=== PATIENT | male | born 1945 | race Two or more races ===

== ENCOUNTER 2017-04-08 12:07 | Day surgery (SDC) | payer MEDICARE ==
[2017-04-04 13:42] VITALS: BMI 34.0
[~2017-04-08 12:07] MED LIST: LACTATED RINGERS 1,000 ML IV SCH
[2017-04-08 12:31] VITALS: TEMP 97.5
[2017-04-08] MEDS ORDERED: PROPOFOL 10 MG/ML 20 ML VIAL IV ONE (12:46)
[2017-04-08] MEDS ORDERED: LIDOCAINE 1% INJ 10MG/ML (20 ML MDV) ONE (12:46)
--- NOTE | 2017-04-08 13:09 | P.PCN ---
Date of Procedure: 04/08/17 Preoperative Diagnosis: Postoperative Diagnosis: Procedure(s) Performed: Procedure: Total colonoscopy. Preoperative diagnosis: Hemoccult-positive stools. Postoperative diagnosis: Diverticulosis with no evidence of acute diverticulitis , strictures, polyps or cancer. Preparation: HalfLytely prep. Sedation: Was provided by anesthesia. Brief clinical history: The patient is a 71-year-old male who is referred for this evaluation because of finding of Hemoccult positive stools. He had a prior colonoscopy more than 8 years ago in [place]. At this time, he has no abdominal complaints, bleeding or anemia. Procedure: With the patient on his left lateral decubitus position and after informed consent and adequate sedation, the perianal area was inspected and it did not show any fissures or fistulas. There were no masses felt on digital rectal examination. The Olympus CFQ 160L video colonoscope was then inserted in the rectum in the usual fashion and advanced to the cecum. There were multiple diverticular orifices seen scattered in the sigmoid with no evidence of acute diverticulitis or strictures. There was a rare diverticular orifice seen on the right side. No polyps or tumors were seen or any tumors or other potential sources of bleeding. I retroflexed the endoscope in the rectum before the endoscope was withdrawn. The patient tolerated the procedure well. Plan: The patient was reassured. Discussed dietary measures. In the absence of upper GI complaints or anemia I did not recommend upper GI workup for the workup of his Hemoccult positive stools at this time and this can be left as a contingency. He will follow up with you as planned and I will be happy to see in the future if needed. Implants: Indications for Procedure: Operative Findings: Description of Procedure:
[2017-04-08 13:29] VITALS: BP 116/64; PULSE 90; RESP 18
== END 2017-04-08 13:38 | disposition home or self-care (01) ==
LOC: ORWHC2ENDO 12:07
DX: K57.30 Diverticulosis of large intestine without perforation or abscess without bleeding (principal); Z87.19 Personal history of other diseases of the digestive system; Z86.73 Personal history of transient ischemic attack (TIA), and cerebral infarction without residual deficits; I10 Essential (primary) hypertension; E66.9 Obesity, unspecified; Z79.82 Long term (current) use of aspirin; Z79.899 Other long term (current) drug therapy; Z91.09 Other allergy status, other than to drugs and biological substances
CPT/HCPCS: 45378

== ENCOUNTER → 2018-07-09 | Outpatient (CLI) | payer MEDICARE ==
--- NOTE | 2018-07-09 16:45 | MR ---
EXAMINATION TYPE: MR brain wo con DATE OF EXAM: 07/09/2018 COMPARISON: None HISTORY: Other developmental disorders of speech CONTRAST: Performed utilizing 0 mL intravenous Gadavist gadolinium contrast. TECHNIQUE: Multiplanar, multiecho imaging on a 3.0 Jovita magnet is performed through the brain. Stud y is performed within 24 hours of arrival to the hospital. The craniovertebral junction is normal. The pituitary is normal. Diffusion-weighted imaging is performed. No abnormal hyperintensity is present to suggest an acute i ntracranial infarct or acute ischemic change. There is some very mild scattered white matter changes which are nonspecific but likely on the basis of chronic white matter ischemic change. No corresponding abnormality on diffusion is evident. No acu te or subacute infarcts are evident. No old infarcts are identified. Ventricles and sulci are slightly prominent for the patient age. IMPRESSIONS: 1. Age-related atrophy with periventricular white matter ischemic changes.
== END | disposition home or self-care (01) ==
LOC: RADMRIMAIN 10:30
PROVIDERS: ATTEND Internal Medicine
DX: G31.1 Senile degeneration of brain, not elsewhere classified (principal); I67.82 Cerebral ischemia
CPT/HCPCS: 70551

== ENCOUNTER 2019-01-14 10:17 | Inpatient (IN) | payer MEDICARE ==
--- NOTE | 2019-01-14 10:57 | ED ---
General Adult HPI - General Chief complaint: Psychiatric Symptoms Stated complaint: altered mental status Time Seen by Provider: 01/14/19 10:20 Source: patient, RN notes reviewed Mode of arrival: ambulatory Limitations: altered mental status - History of Present Illness Initial comments: This is a 73-year-old male who presents emergency Department complaining of with family. Family states he has been hallucinating over a year but over the last 2 weeks is gotten considerably worse. Family states he has stopped drinking approximately at the same time. According to family he believes people cameras in his house and believes that the son's girlfriend isn't useful person. He also wanted the police today because he was again hallucinating. Patient himself denies any physical complaints. He denies headache he denies any numbness weakness. He denies being lightheaded. Patient denies chest pain difficulty breathing or shortness of breath. Patient denies any palpitations. Patient denies abdominal pain patient denies nausea vomiting diarrhea. Patient is extremely poor historian since she cannot finish thought without starting another one and none of his. Patient is unable to convey a complete answer to any slightly involved questions. - Related Data Home Medications Medication Instructions Recorded Confirmed Aspirin [Adult Low Dose Aspirin EC] 162 mg PO DAILY 04/04/17 01/14/19 Cholecalciferol (Vitamin D3) 2,000 unit PO DAILY 04/04/17 01/14/19 [Vitamin D3] Lisinopril [Zestril] 10 mg PO DAILY 04/04/17 01/14/19 Multivit-Min/FA/Lycopen/Lutein 1 tab PO DAILY 04/04/17 01/14/19 [Centrum Silver Tablet] Zinc 100 mg PO DAILY 04/04/17 01/14/19 Allergies Allergy/AdvReac Type Severity Reaction Status Date / Time animal dander Allergy Unknown Dyspnea Verified 01/14/19 10:44 VITAMIN B-12 INJECTION AdvReac Unknown FELT WEAK Uncoded 01/14/19 10:27 AND FAINT. Review of Systems ROS Statement: Those systems with pertinent positive or pertinent negative responses have been documented in the HPI. ROS Other: All systems not noted in ROS Statement are negative. Past Medical History Past Medical History: Cancer, CVA/TIA, Hypertension, Memory Impairment Additional Past Medical History / Comment(s): HX OF SKIN CANCER, POSSIBLE CVA- NO WEAKNESS, STATES SOME MEMORY PROBLEMS AND DIFFICULTY FINDING THE RIGHT WORDS. HX OF HEMORRHOIDS AND GENITAL AND ANAL WARTS THAT HE HAD PROCEDURE FOR REMOVAL. , FREQUENT BOWEL MOVEMENTS AND DIARRHEA. History of Any Multi-Drug Resistant Organisms: None Reported Past Surgical History: Adenoidectomy, Tonsillectomy Additional Past Surgical History / Comment(s): CIRCUMCISION, COLONOSCOPY AND PROCEDURES FOR REMOVAL OF GENITAL AND ANAL WARTS. 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 - Past Family History Mother Family Medical History: Cancer Father Family Medical History: Cancer Sister(s) Family Medical History: Cancer General Exam - General Exam Comments Initial Comments: GENERAL: Patient is well-developed and well-nourished. Patient is nontoxic and well- hydrated and is in mild distress. ENT: Neck is soft and supple. No significant lymphadenopathy is noted. Oropharynx is clear. Moist mucous membranes. Neck has full range of motion without eliciting any pain. EYES: The sclera were anicteric and conjunctiva were pink and moist. Extraocular movements were intact and pupils were equal round and reactive to light. E yelids were unremarkable. PULMONARY: Unlabored respirations. Good breath sounds bilaterally. No audible rales rhonchi or wheezing was noted. CARDIOVASCULAR: There is a regular rate and rhythm without any murmurs gallops or rubs. ABDOMEN: Soft and nontender with normal bowel sounds. No palpable organomegaly was noted. There is no palpable pulsatile mass. SKIN: Skin is clear with no lesions or rashes and otherwise unremarkable. NEUROLOGIC: Patient is alert and oriented x3. Cranial nerves II through XII are grossly intact. Motor and sensory are also intact. Normal speech, volume and content. Symmetrical smile. MUSCULOSKELETAL: Normal extremities with adequate strength and full range of motion. LYMPHATICS: No significant lymphadenopathy is noted PSYCHIATRIC: Normal psychiatric evaluation. Limitations: altered mental status Course Vital Signs 01/14/19 10:22 Temperature 98.8 F Pulse Rate 102 H Respiratory 20 Rate Blood Pressure 165/81 O2 Sat by Pulse 96 Oximetry Medical Decision Making - Medical Decision Making Computed tomography scan of the brain shows no acute abnormality. Chest x-ray shows no acute normalities. Psych evaluate the patient after I cleared medically. They decided to admit the patient to the psychiatric floor. I filled out a clinical certification - Lab Data Result diagrams: 01/14/19 11:23 01/14/19 11:23 Lab Results 01/14/19 01/14/19 01/14/19 Range/Units 11:00 11:23 11:23 WBC 9.0 (3.8-10.6) k/uL RBC 5.28 (4.30-5.90) m/uL Hgb 15.6 (13.0-17.5) gm/dL Hct 48.2 (39.0-53.0) % MCV 91.4 (80.0-100.0) fL MCH 29.5 (25.0-35.0) pg MCHC 32.3 (31.0-37.0) g/dL RDW 13.0 (11.5-15.5) % Plt Count 216 (150-450) k/uL Neutrophils % 81 % Lymphocytes % 11 % Monocytes % 5 % Eosinophils % 1 % Basophils % 0 % Neutrophils # 7.2 (1.3-7.7) k/uL Lymphocytes # 1.0 (1.0-4.8) k/uL Monocytes # 0.5 (0-1.0) k/uL Eosinophils # 0.1 (0-0.7) k/uL Basophils # 0.0 (0-0.2) k/uL PT (9.0-12.0) sec INR (<1.2) APTT (22.0-30.0) sec Sodium (137-145) mmol/L Potassium (3.5-5.1) mmol/L Chloride (98-107) mmol/L Carbon Dioxide (22-30) mmol/L Anion Gap mmol/L BUN (9-20) mg/dL Creatinine (0.66-1.25) mg/dL Est GFR (CKD-EPI)AfAm (>60 ml/min/1.73 sqM) Est GFR (CKD-EPI)NonAf (>60 ml/min/1.73 sqM) Glucose (74-99) mg/dL Calcium (8.4-10.2) mg/dL Magnesium (1.6-2.3) mg/dL Total Bilirubin (0.2-1.3) mg/dL AST (17-59) U/L ALT (21-72) U/L Alkaline Phosphatase (38-126) U/L Ammonia <9 (<30) umol/L Troponin I (0.000-0.034) ng/mL Total Protein (6.3-8.2) g/dL Albumin (3.5-5.0) g/dL Urine Color Yellow Urine Appearance Clear (Clear) Urine pH 5.5 (5.0-8.0) Ur Specific [place] 1.011 (1.001-1.035) Urine Protein Negative (Negative) Urine Glucose (UA) Negative (Negative) Urine Ketones 1+ H (Negative) Urine Blood Negative (Negative) Urine Nitrite Negative (Negative) Urine Bilirubin Negative (Negative) Urine Urobilinogen <2.0 (<2.0) mg/dL Ur Leukocyte Esterase Negative (Negative) Urine Opiates Screen Not Detected (NotDetected) Ur Oxycodone Screen Not Detected (NotDetected) Urine Methadone Screen Not Detected (NotDetected) Ur Propoxyphene Screen Not Detected (NotDetected) Ur Barbiturates Screen Not Detected (NotDetected) U Tricyclic Antidepress Not Detected (NotDetected) Ur Phencyclidine Scrn Not Detected (NotDetected) Ur Amphetamines Screen Not Detected (NotDetected) U Methamphetamines Scrn Not Detected (NotDetected) U Benzodiazepines Scrn Not Detected (NotDetected) Urine Cocaine Screen Not Detected (NotDetected) U Marijuana (THC) Screen Not Detected (NotDetected) Serum Alcohol mg/dL 01/14/19 01/14/19 01/14/19 Range/Units 11:23 11:23 11:23 WBC (3.8-10.6) k/uL RBC (4.30-5.90) m/uL Hgb (13.0-17.5) gm/dL Hct (39.0-53.0) % MCV (80.0-100.0) fL MCH (25.0-35.0) pg MCHC (31.0-37.0) g/dL RDW (11.5-15.5) % Plt Count (150-450) k/uL Neutrophils % % Lymphocytes % % Monocytes % % Eosinophils % % Basophils % % Neutrophils # (1.3-7.7) k/uL Lymphocytes # (1.0-4.8) k/uL Monocytes # (0-1.0) k/uL Eosinophils # (0-0.7) k/uL Basophils # (0-0.2) k/uL PT 10.5 (9.0-12.0) sec INR 1.0 (<1.2) APTT 22.9 (22.0-30.0) sec Sodium 139 (137-145) mmol/L Potassium 4.4 (3.5-5.1) mmol/L Chloride 107 (98-107) mmol/L Carbon Dioxide 24 (22-30) mmol/L Anion Gap 8 mmol/L BUN 19 (9-20) mg/dL Creatinine 1.33 H (0.66-1.25) mg/dL Est GFR (CKD-EPI)AfAm 61 (>60 ml/min/1.73 sqM) Est GFR (CKD-EPI)NonAf 53 (>60 ml/min/1.73 sqM) Glucose 108 H (74-99) mg/dL Calcium 9.7 (8.4-10.2) mg/dL Magnesium 2.1 (1.6-2.3) mg/dL Total Bilirubin 0.7 (0.2-1.3) mg/dL AST 24 (17-59) U/L ALT 42 (21-72) U/L Alkaline Phosphatase 86 (38-126) U/L Ammonia (<30) umol/L Troponin I <0.012 (0.000-0.034) ng/mL Total Protein 7.0 (6.3-8.2) g/dL Albumin 4.4 (3.5-5.0) g/dL Urine Color Urine Appearance (Clear) Urine pH (5.0-8.0) Ur Specific [place] (1.001-1.035) Urine Protein (Negative) Urine Glucose (UA) (Negative) Urine Ketones (Negative) Urine Blood (Negative) Urine Nitrite (Negative) Urine Bilirubin (Negative) Urine Urobilinogen (<2.0) mg/dL Ur Leukocyte Esterase (Negative) Urine Opiates Screen (NotDetected) Ur Oxycodone Screen (NotDetected) Urine Methadone Screen (NotDetected) Ur Propoxyphene Screen (NotDetected) Ur Barbiturates Screen (NotDetected) U Tricyclic Antidepress (NotDetected) Ur Phencyclidine Scrn (NotDetected) Ur Amphetamines Screen (NotDetected) U Methamphetamines Scrn (NotDetected) U Benzodiazepines Scrn (NotDetected) Urine Cocaine Screen (NotDetected) U Marijuana (THC) Screen (NotDetected) Serum Alcohol <10 mg/dL Disposition Clinical Impression: Acute psychosis Disposition: ADMITTED IP TO THIS HOSP Referrals: Amol Nunez MD [Primary Care Provider] - 1-2 days Time of Disposition: 14:30
[2019-01-14 11:15] LABS: Appearance,Urine Clear (Clear); Bilirubin,Urine Negative (Negative); Blood,Urine Negative (Negative); Color,Urine Yellow; Glucose,Urine (UA) Negative (Negative); Ketones,Urine 1+ (Negative); Leukocyte Esterase,Urine Negative (Negative); Nitrite,Urine Negative (Negative); PH, Urine 5.5 (5.0-8.0); Protein,Urine Negative (Negative); Specific Gravity,Urine 1.011 (1.001-1.035); Urobilinogen,Urine <2.0 mg/dL (<2.0)
[2019-01-14 11:29] LABS: Amphetamine Screen,Urine Not Detected (NotDetected); Barbiturate Screen,Urine Not Detected (NotDetected); Benzodiazepines Screen,Urine Not Detected (NotDetected); Cocaine Screen,Urine Not Detected (NotDetected); Methadone Screen, Urine Not Detected (NotDetected); Opiate Screen,Urine Not Detected (NotDetected); Oxycodone Screen, Urine Not Detected (NotDetected); Phencyclidine Screen,Urine Not Detected (NotDetected); Tricyclic Antidepressant,Urine Not Detected (NotDetected); Urn Cannabinoid Scrn Not Detected (NotDetected)
[2019-01-14 11:42] LABS: Basophils % (A) 0 %; Eosinophils # (A) 0.1 k/uL (0-0.7); Eosinophils % (A) 1 %; HCT 48.2 % (39.0-53.0); HGB 15.6 gm/dL (13.0-17.5); Lymphocytes % (A) 11 %; MCH 29.5 pg (25.0-35.0); MCHC 32.3 g/dL (31.0-37.0); MCV 91.4 fL (80.0-100.0); Mean Platelet Volume 7.6; Monocytes # (A) 0.5 k/uL (0-1.0); Monocytes % (A) 5 %; Neutrophils # (A) 7.2 k/uL (1.3-7.7); Neutrophils % (A) 81 %; Platelet Count 216 k/uL (150-450); RBC 5.28 m/uL (4.30-5.90)
[2019-01-14 11:50] LABS: Partial Thromboplastin Time 22.9 sec (22.0-30.0); Prothrombin Time 10.5 sec (9.0-12.0)
--- NOTE | 2019-01-14 11:52 | CT ---
EXAMINATION TYPE: CT brain wo con DATE OF EXAM: 01/14/2019 HISTORY: Altered mental status CT DLP: 1083.4 mGycm. Automated Exposure Control for Dose Reduction was Utilized. TECHNIQUE: CT scan of the head is performed without contrast. COMPARISON: MRI brain July 09, 2018 FINDINGS: There is no acute intracranial hemorrhage or midline shift identified. There is diffuse v entricular and sulcal prominence consistent with diffuse age-related cerebral atrophy. There is low- attenuation in the periventricular white matter consistent with chronic small vessel ischemic change. The globes are intact and the visualized sinuses are clear. Soft tissue density left external aud itory canal is felt to reflect cerumen. IMPRESSION: No acute intracranial hemorrhage or midline shift. There is mild to moderate diffuse ag e-related cerebral atrophy and mild chronic small vessel ischemic change redemonstrated.
[2019-01-14 11:56] LABS: ALT 42 U/L (21-72); AST 24 U/L (17-59); Albumin 4.4 g/dL (3.5-5.0); Alcohol <10 mg/dL; Alkaline Phosphatase 86 U/L (38-126); Anion Gap 8 mmol/L; Blood Urea Nitrogen 19 mg/dL (9-20); Calcium 9.7 mg/dL (8.4-10.2); Carbon Dioxide 24 mmol/L (22-30); Chloride 107 mmol/L (98-107); Glucose 108 mg/dL (74-99); Magnesium 2.1 mg/dL (1.6-2.3); Potassium 4.4 mmol/L (3.5-5.1); Sodium 139 mmol/L (137-145); Total Bilirubin 0.7 mg/dL (0.2-1.3)
--- NOTE | 2019-01-14 12:29 | XR ---
EXAMINATION TYPE: XR chest 2V DATE OF EXAM: 01/14/2019 COMPARISON: NONE HISTORY: Altered mental status TECHNIQUE: Frontal and lateral views of the chest are obtained. FINDINGS: There is no focal air space opacity, pleural effusion, or pneumothorax seen. The cardiac silhouette size is within normal limits. The osseous structures are intact. Mild multilevel degener ative changes of the thoracic spine. IMPRESSION: No acute cardiopulmonary process.
[2019-01-14] MEDS ORDERED: ACETAMINOPHEN TAB 325 MG TAB PO PRN (14:58)
[2019-01-14] MEDS ORDERED: MAGNESIUM HYDROXIDE 2,400 MG/10 ML CUP PO PRN (14:58)
[2019-01-14] MEDS ORDERED: ZIPRASIDONE 20 MG VIAL IM PRN (14:58)
[2019-01-14] MEDS ORDERED: LORazepam 1 MG TAB PO PRN (14:58)
[2019-01-14] MEDS ORDERED: MAG HYDROX/AL HYDROX/SIMETH 30 ML CUP PO PRN (14:58)
[2019-01-14] MEDS ORDERED: LORazepam 2 MG/ML INJ IM PRN (15:04)
[2019-01-15] MEDS: LISINOPRIL 10 MG TAB PO SCH (08:04)
[2019-01-15] MEDS: CHOLECALCIFEROL 1,000 UNIT TAB PO SCH (08:04)
[2019-01-15] MEDS: MULTIVITAMINS, THERA 1 EACH TAB PO SCH (08:04)
[2019-01-15] MEDS: ZINC SULFATE 220 MG CAP PO SCH (08:04)
[2019-01-15] MEDS: ASPIRIN 81 MG PO SCH (08:04)
[2019-01-15 09:08] LABS: Basophils # (A) 0.1 k/uL (0-0.2); Basophils % (A) 1 %; Eosinophils # (A) 0.2 k/uL (0-0.7); Eosinophils % (A) 2 %; HGB 16.4 gm/dL (13.0-17.5); Lymphocytes % (A) 24 %; MCH 29.9 pg (25.0-35.0); MCHC 32.7 g/dL (31.0-37.0); MCV 91.4 fL (80.0-100.0); Mean Platelet Volume 8.1; Monocytes # (A) 0.5 k/uL (0-1.0); Monocytes % (A) 6 %; Neutrophils # (A) 5.5 k/uL (1.3-7.7); Neutrophils % (A) 65 %; Platelet Count 195 k/uL (150-450); RBC 5.48 m/uL (4.30-5.90); RDW 13.8 % (11.5-15.5); WBC 8.4 k/uL (3.8-10.6)
[2019-01-15 09:14] LABS: Albumin 4.6 g/dL (3.5-5.0); Bilirubin, Delta 0.2 mg/dL (0.0-0.2); Bilirubin,Unconjugated 0.9 mg/dL (0.0-1.1); Total Bilirubin 1.1 mg/dL (0.2-1.3); Total Protein 7.1 g/dL (6.3-8.2)
--- NOTE | 2019-01-15 11:46 | P.HP ---
Psychiatric H&P - . H&P Date: 01/15/19 History & Physical: Allergies Allergy/AdvReac Type Severity Reaction Status Date / Time animal dander Allergy Unknown Dyspnea Verified 01/14/19 10:44 VITAMIN B-12 INJECTION AdvReac Unknown FELT WEAK Uncoded 01/14/19 10:27 AND FAINT. Vital Signs Temp 98.6 F 01/15/19 06:40 Pulse 90 01/15/19 06:40 Resp 18 01/15/19 06:40 BP 148/83 01/15/19 06:40 Pulse Ox 95 01/14/19 18:20 Intake & Output 01/14/19 01/15/19 01/15/19 18:59 06:59 18:59 Weight 97.3 kg Laboratory Last Values WBC 8.4 k/uL (3.8-10.6) 01/15/19 08:22 RBC 5.48 m/uL (4.30-5.90) 01/15/19 08:22 Hgb 16.4 gm/dL (13.0-17.5) 01/15/19 08:22 Hct 50.0 % (39.0-53.0) 01/15/19 08:22 MCV 91.4 fL (80.0-100.0) 01/15/19 08:22 MCH 29.9 pg (25.0-35.0) 01/15/19 08:22 MCHC 32.7 g/dL (31.0-37.0) 01/15/19 08:22 RDW 13.8 % (11.5-15.5) 01/15/19 08:22 Plt Count 195 k/uL (150-450) 01/15/19 08:22 Neutrophils % 65 % 01/15/19 08:22 Lymphocytes % 24 % 01/15/19 08:22 Monocytes % 6 % 01/15/19 08:22 Eosinophils % 2 % 01/15/19 08:22 Basophils % 1 % 01/15/19 08:22 Neutrophils # 5.5 k/uL (1.3-7.7) 01/15/19 08:22 Lymphocytes # 2.0 k/uL (1.0-4.8) 01/15/19 08:22 Monocytes # 0.5 k/uL (0-1.0) 01/15/19 08:22 Eosinophils # 0.2 k/uL (0-0.7) 01/15/19 08:22 Basophils # 0.1 k/uL (0-0.2) 01/15/19 08:22 PT 10.5 sec (9.0-12.0) 01/14/19 11:23 INR 1.0 (<1.2) 01/14/19 11:23 APTT 22.9 sec (22.0-30.0) 01/14/19 11:23 Sodium 139 mmol/L (137-145) 01/14/19 11:23 Potassium 4.4 mmol/L (3.5-5.1) 01/14/19 11:23 Chloride 107 mmol/L (98-107) 01/14/19 11:23 Carbon Dioxide 24 mmol/L (22-30) 01/14/19 11:23 Anion Gap 8 mmol/L 01/14/19 11:23 BUN 19 mg/dL (9-20) 01/14/19 11:23 Creatinine 1.33 mg/dL (0.66-1.25) H 01/14/19 11:23 Est GFR (CKD-EPI)AfAm 61 (>60 ml/min/1.73 sqM) 01/14/19 11:23 Est GFR (CKD-EPI)NonAf 53 (>60 ml/min/1.73 sqM) 01/14/19 11:23 Glucose 108 mg/dL (74-99) H 01/14/19 11:23 Calcium 9.7 mg/dL (8.4-10.2) 01/14/19 11:23 Magnesium 2.1 mg/dL (1.6-2.3) 01/14/19 11:23 Total Bilirubin 1.1 mg/dL (0.2-1.3) 01/15/19 08:22 Conjugated Bilirubin 0.0 mg/dL (0.0-0.3) 01/15/19 08:22 Unconjugated Bilirubin 0.9 mg/dL (0.0-1.1) 01/15/19 08:22 Delta Bilirubin 0.2 mg/dL (0.0-0.2) 01/15/19 08:22 AST 22 U/L (17-59) 01/15/19 08:22 ALT 38 U/L (21-72) 01/15/19 08:22 Alkaline Phosphatase 85 U/L (38-126) 01/15/19 08:22 Ammonia <9 umol/L (<30) 01/14/19 11:23 Troponin I <0.012 ng/mL (0.000-0.034) 01/14/19 11:23 Total Protein 7.1 g/dL (6.3-8.2) 01/15/19 08:22 Albumin 4.6 g/dL (3.5-5.0) 01/15/19 08:22 Triglycerides 105 mg/dL (<150) 01/15/19 08:22 Cholesterol 160 mg/dL (<200) 01/15/19 08:22 LDL Cholesterol, Calc 71 mg/dL (0-99) 01/15/19 08: HDL Cholesterol 68 mg/dL (40-60) H 01/15/19 08:22 TSH 1.240 mIU/L (0.465-4.680) 01/15/19 08:22 Urine Color Yellow 01/14/19 11:00 Urine Appearance Clear (Clear) 01/14/19 11:00 Urine pH 5.5 (5.0-8.0) 01/14/19 11:00 Ur Specific [place] 1.011 (1.001-1.035) 01/14/19 11:00 Urine Protein Negative (Negative) 01/14/19 11:00 Urine Glucose (UA) Negative (Negative) 01/14/19 11:00 Urine Ketones 1+ (Negative) H 01/14/19 11:00 Urine Blood Negative (Negative) 01/14/19 11:00 Urine Nitrite Negative (Negative) 01/14/19 11:00 Urine Bilirubin Negative (Negative) 01/14/19 11:00 Urine Urobilinogen <2.0 mg/dL (<2.0) 01/14/19 11:00 Ur Leukocyte Esterase Negative (Negative) 01/14/19 11:00 Urine Opiates Screen Not Detected (NotDetected) 01/14/19 11:00 Ur Oxycodone Screen Not Detected (NotDetected) 01/14/19 11:00 Urine Methadone Screen Not Detected (NotDetected) 01/14/19 11:00 Ur Propoxyphene Screen Not Detected (NotDetected) 01/14/19 11:00 Ur Barbiturates Screen Not Detected (NotDetected) 01/14/19 11:00 U Tricyclic Antidepress Not Detected (NotDetected) 01/14/19 11:00 Ur Phencyclidine Scrn Not Detected (NotDetected) 01/14/19 11:00 Ur Amphetamines Screen Not Detected (NotDetected) 01/14/19 11:00 U Methamphetamines Scrn Not Detected (NotDetected) 01/14/19 11:00 U Benzodiazepines Scrn Not Detected (NotDetected) 01/14/19 11:00 Urine Cocaine Screen Not Detected (NotDetected) 01/14/19 11:00 U Marijuana (THC) Screen Not Detected (NotDetected) 01/14/19 11:00 Serum Alcohol <10 mg/dL 01/14/19 11:23 Assessment and Plan Assessment: This is a 73-year-old male who presents emergency Department complaining of with family. Family states he has been hallucinating over a year but over the last 2 weeks is gotten considerably worse. Family states he has stopped drinking approximately at the same time. According to family he believes people cameras in his house and believes that the son's girlfriend isn't useful person. He also wanted the police today because he was again hallucinating. Patient himself denies any physical complaints. He denies headache he denies any numbness weakness. He denies being lightheaded. Patient denies chest pain difficulty breathing or shortness of breath. Patient denies any palpitations. Patient denies abdominal pain patient denies nausea vomiting diarrhea. Patient is extremely poor historian since she cannot finish thought without starting another one and none of his. Patient is unable to convey a complete answer to any slightly involved questions.per family pt. is paranoid and has had hallucinations for a couple years but they have increased in the past 2 weeks. Today he went the police and he is making accusations that his sons fiance gave some money to and was talking about sex to the guys that came in to work on the phone today. Per son there was none at the house today. Pt. states his son and "this young lady got screaming at each other and they went up the stairs which is dangerous because 14 percent of deaths happen from falling down stairs." Pt. is unable to focus on answering questions appropriately.Pt. denies and then did admit that he thought there are cameras in the house. - Related Data Home Medications Medication Instructions Recorded Confirmed Aspirin [Adult Low Dose Aspirin EC] 162 mg PO DAILY 04/04/17 01/14/19 Cholecalciferol (Vitamin D3) 2,000 unit PO DAILY 04/04/17 01/14/19 [Vitamin D3] Lisinopril [Zestril] 10 mg PO DAILY 04/04/17 01/14/19 Multivit-Min/FA/Lycopen/Lutein 1 tab PO DAILY 04/04/17 01/14/19 [Centrum Silver Tablet] Zinc 100 mg PO DAILY 04/04/17 01/14/19 Allergies Allergy/AdvReac Type Severity Reaction Status Date / Time animal dander Allergy Unknown Dyspnea Verified 01/14/19 10:44 VITAMIN B-12 INJECTION AdvReac Unknown FELT WEAK Uncoded 01/14/19 10:27 AND FAINT. Past Medical History Past Medical History: Cancer, CVA/TIA, Hypertension, Memory Impairment Additional Past Medical History / Comment(s): HX OF SKIN CANCER, POSSIBLE CVA- NO WEAKNESS, STATES SOME MEMORY PROBLEMS AND DIFFICULTY FINDING THE RIGHT WORDS. HX OF HEMORRHOIDS AND GENITAL AND ANAL WARTS THAT HE HAD PROCEDURE FOR REMOVAL. , FREQUENT BOWEL MOVEMENTS AND DIARRHEA. History of Any Multi-Drug Resistant Organisms: None Reported Past Surgical History: Adenoidectomy, Tonsillectomy Additional Past Surgical History / Comment(s): CIRCUMCISION, COLONOSCOPY AND PROCEDURES FOR REMOVAL OF GENITAL AND ANAL WARTS. 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 General Appearance: [ casual, bizarre, appears older than stated age Speech/Language: [ slow, rambled, mumbling, hesitant, halting, monotone, soft] Attitude/Behavior: [cooperative, guarded Mood: [depressed, anxious Affect: [flat, incongruent, blunted constricted] Orientation: [Not to time, person, place not to situation] Thought Content: [wnl Risk Factors: [Denies suicidal (ideations, plan), and/or Homicidal (ideations, plan), other] Perception: [wnl, denies hallucinations (auditory, visual, tactile), other] Thought Processes: [ concrete, circumstantial, tangential, other] Concentration/Attention Span: [ impaired] [Per observation and interview with the patient] Recent Memory: [ impaired] [0out of 3 in 3 minutes] Remote Memory: [ impaired] [past events, as related history] Intelligence: [ average [based on history, based on vocabulary, syntax, grammar, and content] Judgement: [Poor [per patient's behavior/history of present illness] Insight: [Poor] [understanding severity of illness/history of present illness] Admitting Diagnosis: [Acute psychosis and Wernicke-Korsakoff dementia; history of skin cancer and possible invasion to brain with radiation needs to be further evaluated however his CT imaging reveals great deal of atrophy over frontal, temporal parietal region and cerebellar degeneration; it appears to be lacunar infarcts thus indicating cerebrovascular disease] Patient Strengths - Steady employment/financial stability: [x] Housing stability: [x] Patient Limitations: [medication Initial Plan of Care: [He is admitted on an involuntary basis with myself amelia ling out these second clinical certification for involuntary stay for reasons of acute psychosis. He'll be evaluated by medicine, psychiatry, nursing staff, social work and occupational therapy to develop a thorough biopsychosocial evaluation which will aid in the prognosis, disposition and discharge planning. He will be started on Risperdal 0.5 mg by mouth daily at bedtime for the acute psychosis. He also be started on Namenda 5 mg for the neurocognitive disorder] Estimated Length of Stay: [5 days] Initial Discharge Plan: [home Prognosis: [Fair] Justification for Inpatient Hospitalization - [Hallucinations, delusions, depression resulting in significant loss of functioning.] [Dangerous to others, or property with need for controlled environment.] [Emotional or behavioral conditions and complications requiring 24 hour medical and nursing care.] [Need for special drug therapy, or other therapeutic program requiring continuous hospitalization.] [Failure of social or occupational functioning.] [Inability to meet basic life and health needs.] [Legally mandated admission.] [ (1) Acute psychosis Current Visit: Yes Status: Acute Priority: High Code(s): F23 - BRIEF PSYCHOTIC DISORDER SNOMED Code(s): 98649829 (2) Wernicke-Korsakoff syndrome (alcoholic) Current Visit: Yes Status: Acute Priority: High Code(s): F10.96 - ALCOHOL USE, UNSP W ALCOH-INDUCE PERSIST AMNESTIC DISORDER SNOMED Code(s): 769427351 Time with Patient: Greater than 30
[2019-01-15] MEDS: THIAMINE 100 MG TAB PO SCH (14:57)
[2019-01-15 16:56] LABS: Hemoglobin A1C 5.4 % (4.0-6.0)
--- NOTE | 2019-01-15 20:12 | CONS ---
CONSULTATION DATE OF CONSULTATION: 01/15/2019 REASON FOR CONSULTATION: Medical management, requested by Dr. Caldwell. CONSULTATION: This is a 73-year-old patient of Dr. Amol Nunez. Chronic stable medical conditions include hypertension and osteoarthritis. The patient presented to the ER. Family told them that the patient has been hallucinating for close to a year, but it has become much worse in the last 2 weeks. The patient also stopped drinking around the same time. Patient told the ER he believes there are cameras in his house and he believes his son's girlfriend is not a useful person. The patient has no obvious physical complaints. He takes medicine for blood pressure, has pain in his joints, especially the lower extremities. During history-taking, he shifts from one topic rapidly to another topic, oftentimes finding it difficult to find words, and cannot stick to one topic. The patient is also having trouble sleeping. CT scan in the ER did report age- related changes. The patient is admitted to the psychiatry unit under Dr. Caldwell. REVIEW OF SYSTEMS: CONSTITUTIONAL: Tired. HEENT: None. RESPIRATORY: None. CARDIOVASCULAR: None. GASTROINTESTINAL: None. GENITOURINARY: None. MUSCULOSKELETAL: Arthritic pain in the lower extremity joints and especially in the hands. DERMATOLOGICAL: None. HEMATOLOGICAL: None. LYMPHATICS: None. PSYCHIATRY: Forgetful. NEUROLOGICAL: Decreased sleep. PAST MEDICAL HISTORY: 1. Skin cancer. 2. Hypertension. 3. Hemorrhoids. 4. Genital and anal warts. PAST SURGICAL HISTORY: 1. Adenoidectomy. 2. Tonsillectomy. 3. Circumcision. 4. Colonoscopy. 5. Procedure for removal of genital and anal warts. SOCIAL HISTORY: The patient stopped smoking cigars about 20 years ago. He did drink heavily, though intermittently it looks more recently, and his last drink was about 1 or 2 weeks ago. Apparently he had been drinking anywhere from 1 to 9 beers a day. The patient does live with his son and other family members. It looks like he was before; he is not really able answer the questions straight. FAMILY HISTORY: Cancer, type unknown. HOME MEDICATIONS: 1. Centrum Silver 1 tablet p.o. daily. 2. Zestril 10 mg p.o. daily. 3. Zinc 100 mg p.o. daily. 4. Vitamin D3 2000 units p.o. daily. 5. Aspirin 162 mg daily. ALLERGIES: 1. VITAMIN B12. 2. DANDER. Vitamin B12 injection made him weak and tired. PHYSICAL EXAMINATION: Temperature 98.6, pulse 90, respiration 18, blood pressure 148/83, pulse ox 95% on room air. GENERAL APPEARANCE: Well built; BMI 30.8. Sitting up, awake. EYES: Pupils equal. Conjunctivae normal. HEENT: External appearance of nose and ears normal. Oral cavity normal. NECK: JVD not raised. Mass not palpable. RESPIRATORY: Effort normal. LUNGS: Slightly decreased breath sounds. CARDIOVASCULAR: First and second sounds normal. No edema. ABDOMEN: Soft, non-tender. Liver and spleen not palpable. LYMPHATIC: No lymph node palpable in neck or axillae. PSYCHIATRY: Patient finds it difficult to find words and then goes off tangentially on a different topic. Often seems to be making up his sentences. Otherwise he appears to be rather calm. NEUROLOGICAL: Pupils equal. No facial asymmetry. Some decreased sensation distally. INVESTIGATIONS: White count 8.4, hemoglobin 16.4, potassium 4.4, BUN 19, creatinine 1.33. AST and ALT are normal. TSH is 1.2. Serum alcohol less than 10. EKG tracing, personally reviewed by me, shows first-degree AV block and features of LVH. CT scan of the brain reports age-related diffuse cerebral atrophy. Chest x-ray film, personally reviewed by me, shows some cardiomegaly; otherwise, lung iglesias appear to be clear. ASSESSMENT: 1. Essential hypertension. 2. Chronic alcohol dependence. 3. Obesity with body mass index 30.8. 4. Chronic insomnia, idiopathic. 5. Primary osteoarthritis. 6. History is compatible with Korsakoff syndrome. PLAN: Clinical findings were discussed with Dr. Caldwell, and we both feel the same. Will check patient's B12 level. Will give patient multivitamin and thiamine. Patient has NO TRUE ALLERGY TO VITAMIN B12. If need be, will supplement the same. Thank you Dr. Caldwell. MMODL / IJN: [id number] /
[2019-01-15] MEDS: risperiDONE 0.5 MG TAB PO SCH (20:28)
[2019-01-15] MEDS: MEMANTINE 5 MG TAB PO SCH (20:28)
[2019-01-15] MEDS: cloNIDine HCL 0.1 MG TAB PO SCH (20:28)
[2019-01-16] MEDS: ASPIRIN 81 MG PO SCH (09:24)
[2019-01-16] MEDS: MEMANTINE 5 MG TAB PO SCH ×2 (09:24→20:35)
[2019-01-16] MEDS: cloNIDine HCL 0.1 MG TAB PO SCH ×2 (09:24→20:35)
[2019-01-16] MEDS: ZINC SULFATE 220 MG CAP PO SCH (09:24)
[2019-01-16] MEDS: THIAMINE 100 MG TAB PO SCH (09:24)
[2019-01-16] MEDS: LISINOPRIL 10 MG TAB PO SCH (09:25)
[2019-01-16] MEDS: CHOLECALCIFEROL 1,000 UNIT TAB PO SCH (09:25)
[2019-01-16] MEDS: MULTIVITAMINS, THERA 1 EACH TAB PO SCH (09:27)
--- NOTE | 2019-01-16 11:19 | P.PN ---
Subjective Progress Note Date: 01/16/19 Principal diagnosis: Acute psychosis and Wernicke Korsakoff 01/16/2019: Patient discussed in team this morning discussed with nursing staff and social work. Patient interviewed and he is pleasant confused and disoriented individual that needs redirection. Objective - Vital Signs Vital signs: Vital Signs Temp 98.8 F 01/16/19 01:41 Pulse 72 01/16/19 01:41 Resp 16 01/16/19 01:41 BP 134/66 01/16/19 01:41 Pulse Ox 95 01/14/19 18:20 - Labs CBC & Chem 7: 01/15/19 08:22 01/14/19 11:23 Assessment and Plan Assessment: This is a 73-year-old male who presents emergency Department complaining of with family. Family states he has been hallucinating over a year but over the last 2 weeks is gotten considerably worse. Family states he has stopped drinking approximately at the same time. According to family he believes people cameras in his house and believes that the son's girlfriend isn't useful person. He also wanted the police today because he was again hallucinating. Patient himself denies any physical complaints. He denies headache he denies any numbness weakness. He denies being lightheaded. Patient denies chest pain difficulty breathing or shortness of breath. Patient denies any palpitations. Patient denies abdominal pain patient denies nausea vomiting diarrhea. Patient is extremely poor historian since she cannot finish thought without starting another one and none of his. Patient is unable to convey a complete answer to any slightly involved questions.per family pt. is paranoid and has had hallucinations for a couple years but they have increased in the past 2 weeks. Today he went the police and he is making accusations that his sons gama gave some money to and was talking about sex to the guys that came in to work on the phone today. Per son there was none at the house today. Pt. states his son and "this young lady got screaming at each other and they went up the stairs which is dangerous because 14 percent of deaths happen from falling down stairs." Pt. is unable to focus on answering questions appropriately.Pt. denies and then did admit that he thought there are cameras in the house. - Related Data Home Medications Medication Instructions Recorded Confirmed Aspirin [Adult Low Dose Aspirin EC] 162 mg PO DAILY 04/04/17 01/14/19 Cholecalciferol (Vitamin D3) 2,000 unit PO DAILY 04/04/17 01/14/19 [Vitamin D3] Lisinopril [Zestril] 10 mg PO DAILY 04/04/17 01/14/19 Multivit-Min/FA/Lycopen/Lutein 1 tab PO DAILY 04/04/17 01/14/19 [Centrum Silver Tablet] Zinc 100 mg PO DAILY 04/04/17 01/14/19 Allergies Allergy/AdvReac Type Severity Reaction Status Date / Time animal dander Allergy Unknown Dyspnea Verified 01/14/19 10:44 VITAMIN B-12 INJECTION AdvReac Unknown FELT WEAK Uncoded 01/14/19 10:27 AND FAINT. Past Medical History Past Medical History: Cancer, CVA/TIA, Hypertension, Memory Impairment Additional Past Medical History / Comment(s): HX OF SKIN CANCER, POSSIBLE CVA- NO WEAKNESS, STATES SOME MEMORY PROBLEMS AND DIFFICULTY FINDING THE RIGHT WORDS. HX OF HEMORRHOIDS AND GENITAL AND ANAL WARTS THAT HE HAD PROCEDURE FOR REMOVAL. , FREQUENT BOWEL MOVEMENTS AND DIARRHEA. History of Any Multi-Drug Resistant Organisms: None Reported Past Surgical History: Adenoidectomy, Tonsillectomy Additional Past Surgical History / Comment(s): CIRCUMCISION, COLONOSCOPY AND PROCEDURES FOR REMOVAL OF GENITAL AND ANAL WARTS. 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 General Appearance: [ casual, bizarre, appears older than stated age Speech/Language: [ slow, rambled, mumbling, hesitant, halting, monotone, soft] Attitude/Behavior: [cooperative, guarded Mood: [depressed, anxious Affect: [flat, incongruent, blunted constricted] Orientation: [Not to time, person, place not to situation] Thought Content: [wnl Risk Factors: [Denies suicidal (ideations, plan), and/or Homicidal (ideations, plan), other] Perception: [wnl, denies hallucinations (auditory, visual, tactile), other] Thought Processes: [ concrete, circumstantial, tangential, other] Concentration/Attention Span: [ impaired] [Per observation and interview with the patient] Recent Memory: [ impaired] [0out of 3 in 3 minutes] Remote Memory: [ impaired] [past events, as related history] Intelligence: [ average [based on history, based on vocabulary, syntax, grammar, and content] Judgement: [Poor [per patient's behavior/history of present illness] Insight: [Poor] [understanding severity of illness/history of present illness] Admitting Diagnosis: [Acute psychosis and Wernicke-Korsakoff dementia; history of skin cancer and possible invasion to brain with radiation needs to be further evaluated however his CT imaging reveals great deal of atrophy over frontal, temporal parietal region and cerebellar degeneration; it appears to be lacunar infarcts thus indicating cerebrovascular disease] Patient Limitations: [medication Initial Plan of Care: [He is admitted on an involuntary basis with myself filling out these second clinical certification for involuntary stay for reasons of acute psychosis. He'll be evaluated by medicine, psychiatry, nursing staff, social work and occupational therapy to develop a thorough biopsychosocial evaluation which will aid in the prognosis, disposition and discharge planning. He will be started on Risperdal 0.5 mg by mouth daily at bedtime for the acute psychosis. He also be started on Namenda 5 mg for the neurocognitive disorder 01/16/2019: He is tolerated the Namenda well as well as the Risperdal. Will add Aricept 5 mg by mouth daily at bedtime. He remains on 15 minute checks on the unit. He is easily redirectable but participates minimally in group activities.] (1) Acute psychosis Current Visit: Yes Status: Acute Priority: High Code(s): F23 - BRIEF PSYCHOTIC DISORDER SNOMED Code(s): 88725894 (2) Wernicke-Korsakoff syndrome (alcoholic) Current Visit: Yes Status: Acute Priority: High Code(s): F10.96 - ALCOHOL USE, UNSP W ALCOH-INDUCE PERSIST AMNESTIC DISORDER SNOMED Code(s): 072917422 Time with Patient: Less than 30
[2019-01-16] MEDS: risperiDONE 0.5 MG TAB PO SCH (20:35)
[2019-01-16] MEDS: DONEPEZIL 5 MG TAB PO SCH (20:35)
[2019-01-17] MEDS: ASPIRIN 81 MG PO SCH (08:04)
[2019-01-17] MEDS: CHOLECALCIFEROL 1,000 UNIT TAB PO SCH (08:04)
[2019-01-17] MEDS: MULTIVITAMINS, THERA 1 EACH TAB PO SCH (08:04)
[2019-01-17] MEDS: THIAMINE 100 MG TAB PO SCH (08:04)
[2019-01-17] MEDS: cloNIDine HCL 0.1 MG TAB PO SCH ×2 (08:05→20:25)
[2019-01-17] MEDS: ZINC SULFATE 220 MG CAP PO SCH (08:05)
[2019-01-17] MEDS: MEMANTINE 5 MG TAB PO SCH ×2 (08:05→20:25)
[2019-01-17] MEDS: LISINOPRIL 10 MG TAB PO SCH (08:05)
--- NOTE | 2019-01-17 10:40 | P.PN ---
Progress Note - Text Interval history: The patient is found in his room resting in bed he prefers to speak in his room today. He does sit up. The patient has significant difficulty answering questions in a linear fashion. He has insight into his word finding difficulty. He does not effectively answer any of my questions although he does attempt. No reports of any behavioral disturbance. He has been compliant with medication. His psychotropic medications were reviewed. He is not able to engage in a discussion regarding those at this time. Mental status exam: The patient is a male appearing his stated age. He is a disheveled appearance he wears a rucker. He is wearing a hospital gown with a portion of his chest exposed he is otherwise covered in a sheet. He provides no direct answer to any question asked although he does attempt. He demonstrates tangential thinking and loose associations. He demonstrates significant word finding difficulty. Affect is constricted. He demonstrates no verbal or physical aggressiveness. Insight and judgment are impaired. Just based on the conversation it is obvious he struggles with cognitive impairment Plan: The patient will continue on his current psychotropic medications. We will monitor him for safety and encourage participation in the milieu. Vital signs reviewed they are within normal limits.
[2019-01-17] MEDS: DONEPEZIL 5 MG TAB PO SCH (20:25)
[2019-01-17] MEDS: risperiDONE 0.5 MG TAB PO SCH (20:25)
--- NOTE | 2019-01-18 08:55 | P.PN ---
Progress Note - Text Interval history: The patient is found in the hallway follows me to an interview room. He reports his mood is fine. He indicates that he slept last night staff report he slept 5 hours. He indicates appetite stable and he ate breakfast. He continues to have a disorganized thought process. He continues to be pleasant and cooperative. He is easily directable. Mental status exam: The patient is alert he is dressed in his own clothing. Hygiene grooming impaired. He wears a large rucker. His hair is not combed. Eye contact is appropriate. He has spontaneous speech. He is verbose but not pressured. Thought process is disorganized. He demonstrates impairment of short-term memory. He reports no suicidal thoughts he reports no thoughts of harming others. He is endorsing no auditory or visual hallucinations. There may be some delusional thought content present however. Insight and judgment impaired. He is oriented to person place month and day of the week. He demonstrates no verbal or physical aggressiveness. He Plan: The patient will continue on his current psychotropic medications. Vital signs reviewed. We will continue to monitor him for safety.
[2019-01-18] MEDS: ASPIRIN 81 MG PO SCH (09:00)
[2019-01-18] MEDS: MEMANTINE 5 MG TAB PO SCH ×2 (09:00→20:18)
[2019-01-18] MEDS: cloNIDine HCL 0.1 MG TAB PO SCH ×2 (09:00→20:18)
[2019-01-18] MEDS: MULTIVITAMINS, THERA 1 EACH TAB PO SCH (09:00)
[2019-01-18] MEDS: ZINC SULFATE 220 MG CAP PO SCH (09:00)
[2019-01-18] MEDS: CHOLECALCIFEROL 1,000 UNIT TAB PO SCH (09:00)
[2019-01-18] MEDS: THIAMINE 100 MG TAB PO SCH (09:01)
[2019-01-18] MEDS: LISINOPRIL 10 MG TAB PO SCH (09:01)
[2019-01-18] MEDS: DONEPEZIL 5 MG TAB PO SCH (20:18)
[2019-01-18] MEDS: risperiDONE 0.5 MG TAB PO SCH (20:18)
[2019-01-19] MEDS: MEMANTINE 5 MG TAB PO SCH ×2 (08:46→20:55)
[2019-01-19] MEDS: ASPIRIN 81 MG PO SCH (08:46)
[2019-01-19] MEDS: CHOLECALCIFEROL 1,000 UNIT TAB PO SCH (08:46)
[2019-01-19] MEDS: THIAMINE 100 MG TAB PO SCH (08:47)
[2019-01-19] MEDS: cloNIDine HCL 0.1 MG TAB PO SCH ×2 (08:47→20:55)
[2019-01-19] MEDS: LISINOPRIL 10 MG TAB PO SCH (08:47)
[2019-01-19] MEDS: ZINC SULFATE 220 MG CAP PO SCH (08:47)
[2019-01-19] MEDS: MULTIVITAMINS, THERA 1 EACH TAB PO SCH (08:47)
--- NOTE | 2019-01-19 12:14 | P.PN ---
Subjective Progress Note Date: 01/19/19 Principal diagnosis: Acute psychosis and Wernicke Korsakoff 01/16/2019: Patient discussed in team this morning discussed with nursing staff and social work. Patient interviewed and he is pleasant confused and disoriented individual that needs redirection. 01/19/2019: chart reviewed and discussed in team. Interviewed patient who remains somewhat confused but redirectable. N0 SI or HI. No auditory or visual hallucinations Objective - Vital Signs Vital signs: Vital Signs Temp 98.5 F 01/19/19 06:22 Pulse 110 H 01/19/19 08:48 Resp 14 01/19/19 06:22 BP 136/99 01/19/19 08:48 Pulse Ox 95 01/14/19 18:20 Intake & Output 01/18/19 01/19/19 01/19/19 18:59 06:59 18:59 Weight 71.7 kg - Labs CBC & Chem 7: 01/15/19 08:22 01/14/19 11:23 Assessment and Plan Assessment: This is a 73-year-old male who presents emergency Department complaining of with family. Family states he has been hallucinating over a year but over the last 2 weeks is gotten considerably worse. Family states he has stopped drinking approximately at the same time. According to family he believes people cameras in his house and believes that the son's girlfriend isn't useful person. He also wanted the police today because he was again hallucinating. Patient himself denies any physical complaints. He denies headache he denies any numbness weakness. He denies being lightheaded. Patient denies chest pain difficulty breathing or shortness of breath. Patient denies any palpitations. Patient denies abdominal pain patient denies nausea vomiting diarrhea. Patient is extremely poor historian since she cannot finish thought without starting another one and none of his. Patient is unable to convey a complete answer to any slightly involved questions.per family pt. is paranoid and has had hallucinations for a couple years but they have increased in the past 2 weeks. Today he went the police and he is making accusations that his sons fixiao gave some money to and was talking about sex to the guys that came in to work on the phone today. Per son there was none at the house today. Pt. states his son and "this young lady got screaming at each other and they went up the stairs which is dangerous because 14 percent of deaths happen from falling down stairs." Pt. is unable to focus on answering questions appropriately.Pt. denies and then did admit that he thought there are cameras in the house. - Related Data Home Medications Medication Instructions Recorded Confirmed Aspirin [Adult Low Dose Aspirin EC] 162 mg PO DAILY 04/04/17 01/14/19 Cholecalciferol (Vitamin D3) 2,000 unit PO DAILY 04/04/17 01/14/19 [Vitamin D3] Lisinopril [Zestril] 10 mg PO DAILY 04/04/17 01/14/19 Multivit-Min/FA/Lycopen/Lutein 1 tab PO DAILY 04/04/17 01/14/19 [Centrum Silver Tablet] Zinc 100 mg PO DAILY 04/04/17 01/14/19 Allergies Allergy/AdvReac Type Severity Reaction Status Date / Time animal dander Allergy Unknown Dyspnea Verified 01/14/19 10:44 VITAMIN B-12 INJECTION AdvReac Unknown FELT WEAK Uncoded 01/14/19 10:27 AND FAINT. Past Medical History Past Medical History: Cancer, CVA/TIA, Hypertension, Memory Impairment Additional Past Medical History / Comment(s): HX OF SKIN CANCER, POSSIBLE CVA- NO WEAKNESS, STATES SOME MEMORY PROBLEMS AND DIFFICULTY FINDING THE RIGHT WORDS. HX OF HEMORRHOIDS AND GENITAL AND ANAL WARTS THAT HE HAD PROCEDURE FOR REMOVAL. , FREQUENT BOWEL MOVEMENTS AND DIARRHEA. History of Any Multi-Drug Resistant Organisms: None Reported Past Surgical History: Adenoidectomy, Tonsillectomy Additional Past Surgical History / Comment(s): CIRCUMCISION, COLONOSCOPY AND PROCEDURES FOR REMOVAL OF GENITAL AND ANAL WARTS. 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 General Appearance: [ casual, bizarre, appears older than stated age Speech/Language: [ slow, rambled, mumbling, hesitant, halting, monotone, soft] Attitude/Behavior: [cooperative, guarded Mood: [depressed, anxious Affect: [flat, incongruent, blunted constricted] Orientation: [Not to time, person, place not to situation] Thought Content: [wnl Risk Factors: [Denies suicidal (ideations, plan), and/or Homicidal (ideations, plan), other] Perception: [wnl, denies hallucinations (auditory, visual, tactile), other] Thought Processes: [ concrete, circumstantial, tangential, other] Concentration/Attention Span: [ impaired] [Per observation and interview with the patient] Recent Memory: [ impaired] [0out of 3 in 3 minutes] Remote Memory: [ impaired] [past events, as related history] Intelligence: [ average [based on history, based on vocabulary, syntax, grammar, and content] Judgement: [Poor [per patient's behavior/history of present illness] Insight: [Poor] [understanding severity of illness/history of present illness] Admitting Diagnosis: [Acute psychosis and Wernicke-Korsakoff dementia; history of skin cancer and possible invasion to brain with radiation needs to be further evaluated however his CT imaging reveals great deal of atrophy over frontal, temporal parietal region and cerebellar degeneration; it appears to be lacunar infarcts thus indicating cerebrovascular disease] Patient Limitations: [medication Initial Plan of Care: [He is admitted on an involuntary basis with myself filling out these second clinical certification for involuntary stay for reasons of acute psychosis. He'll be evaluated by medicine, psychiatry, nursing staff, social work and occupational therapy to develop a thorough biopsychosocial evaluation which will aid in the prognosis, disposition and discharge planning. He will be started on Risperdal 0.5 mg by mouth daily at bedtime for the acute psychosis. He also be started on Namenda 5 mg for the neurocognitive disorder 01/16/2019: He is tolerated the Namenda well as well as the Risperdal. Will add Aricept 5 mg by mouth daily at bedtime. He remains on 15 minute checks on the unit. He is easily redirectable but participates minimally in group activities.] 01/19/2019: he remains on 15 minutes checks. Increase Aricept 10 mg po qhs. (1) Acute psychosis Current Visit: Yes Status: Acute Priority: Medium Code(s): F23 - BRIEF PSYCHOTIC DISORDER SNOMED Code(s): 22714667 (2) Wernicke-Korsakoff syndrome (alcoholic) Current Visit: Yes Status: Acute Priority: Medium Code(s): F10.96 - ALCOHOL USE, UNSP W ALCOH-INDUCE PERSIST AMNESTIC DISORDER SNOMED Code(s): 927312998
[2019-01-19 14:15] VITALS: BMI 30.7
[2019-01-19 20:55] VITALS: RESP 17
[2019-01-19] MEDS: risperiDONE 0.5 MG TAB PO SCH (20:55)
[2019-01-19] MEDS ORDERED: DONEPEZIL 10 MG TAB PO SCH (21:00)
[2019-01-20 04:01] VITALS: BP 132/67; PULSE 68; TEMP 97.8
[2019-01-20] MEDS: LISINOPRIL 10 MG TAB PO SCH (09:14)
[2019-01-20] MEDS: cloNIDine HCL 0.1 MG TAB PO SCH (09:14)
[2019-01-20] MEDS: ASPIRIN 81 MG PO SCH (09:14)
[2019-01-20] MEDS: MULTIVITAMINS, THERA 1 EACH TAB PO SCH (09:14)
[2019-01-20] MEDS: ZINC SULFATE 220 MG CAP PO SCH (09:14)
[2019-01-20] MEDS: CHOLECALCIFEROL 1,000 UNIT TAB PO SCH (09:14)
[2019-01-20] MEDS: THIAMINE 100 MG TAB PO SCH (09:14)
[2019-01-20] MEDS: MEMANTINE 5 MG TAB PO SCH (09:14)
--- NOTE | 2019-01-20 11:12 | P.DS ---
Providers Date of admission: 01/14/19 14:43 Expected date of discharge: 01/20/19 Attending physician: Ravi Caldwell DO Consults: 01/14/19 14:58 Consult Physician Routine Consulting Provider: Corky Lozano Consult Reason/Comments: H & P and medical care Do you want consulting provider notified?: Yes Primary care physician: Amol Nunez - Discharge Diagnosis(es) (1) Acute psychosis Allergies Allergy/AdvReac Type Severity Reaction Status Date / Time animal dander Allergy Unknown Dyspnea Verified 01/14/19 10:44 VITAMIN B-12 INJECTION AdvReac Unknown FELT WEAK Uncoded 01/14/19 10:27 AND FAINT. Vital Signs Temp 98.6 F 01/15/19 06:40 Pulse 90 01/15/19 06:40 Resp 18 01/15/19 06:40 BP 148/83 01/15/19 06:40 Pulse Ox 95 01/14/19 18:20 Intake & Output 01/14/19 01/15/19 01/15/19 18:59 06:59 18:59 Weight 97.3 kg Laboratory Last Values WBC 8.4 k/uL (3.8-10.6) 01/15/19 08:22 RBC 5.48 m/uL (4.30-5.90) 01/15/19 08:22 Hgb 16.4 gm/dL (13.0-17.5) 01/15/19 08:22 Hct 50.0 % (39.0-53.0) 01/15/19 08:22 MCV 91.4 fL (80.0-100.0) 01/15/19 08:22 MCH 29.9 pg (25.0-35.0) 01/15/19 08:22 MCHC 32.7 g/dL (31.0-37.0) 01/15/19 08:22 RDW 13.8 % (11.5-15.5) 01/15/19 08:22 Plt Count 195 k/uL (150-450) 01/15/19 08:22 Neutrophils % 65 % 01/15/19 08:22 Lymphocytes % 24 % 01/15/19 08:22 Monocytes % 6 % 01/15/19 08:22 Eosinophils % 2 % 01/15/19 08:22 Basophils % 1 % 01/15/19 08:22 Neutrophils # 5.5 k/uL (1.3-7.7) 01/15/19 08:22 Lymphocytes # 2.0 k/uL (1.0-4.8) 01/15/19 08:22 Monocytes # 0.5 k/uL (0-1.0) 01/15/19 08:22 Eosinophils # 0.2 k/uL (0-0.7) 01/15/19 08:22 Basophils # 0.1 k/uL (0-0.2) 01/15/19 08:22 PT 10.5 sec (9.0-12.0) 01/14/19 11:23 INR 1.0 (<1.2) 01/14/19 11:23 APTT 22.9 sec (22.0-30.0) 01/14/19 11:23 Sodium 139 mmol/L (137-145) 01/14/19 11:23 Potassium 4.4 mmol/L (3.5-5.1) 01/14/19 11:23 Chloride 107 mmol/L (98-107) 01/14/19 11:23 Carbon Dioxide 24 mmol/L (22-30) 01/14/19 11:23 Anion Gap 8 mmol/L 01/14/19 11:23 BUN 19 mg/dL (9-20) 01/14/19 11:23 Creatinine 1.33 mg/dL (0.66-1.25) H 01/14/19 11:23 Est GFR (CKD-EPI)AfAm 61 (>60 ml/min/1.73 sqM) 01/14/19 11:23 Est GFR (CKD-EPI)NonAf 53 (>60 ml/min/1.73 sqM) 01/14/19 11:23 Glucose 108 mg/dL (74-99) H 01/14/19 11:23 Calcium 9.7 mg/dL (8.4-10.2) 01/14/19 11:23 Magnesium 2.1 mg/dL (1.6-2.3) 01/14/19 11:23 Total Bilirubin 1.1 mg/dL (0.2-1.3) 01/15/19 08:22 Conjugated Bilirubin 0.0 mg/dL (0.0-0.3) 01/15/19 08:22 Unconjugated Bilirubin 0.9 mg/dL (0.0-1.1) 01/15/19 08:22 Delta Bilirubin 0.2 mg/dL (0.0-0.2) 01/15/19 08:22 AST 22 U/L (17-59) 01/15/19 08:22 ALT 38 U/L (21-72) 01/15/19 08:22 Alkaline Phosphatase 85 U/L (38-126) 01/15/19 08:22 Ammonia <9 umol/L (<30) 01/14/19 11:23 Troponin I <0.012 ng/mL (0.000-0.034) 01/14/19 11:23 Total Protein 7.1 g/dL (6.3-8.2) 01/15/19 08:22 Albumin 4.6 g/dL (3.5-5.0) 01/15/19 08:22 Triglycerides 105 mg/dL (<150) 01/15/19 08:22 Cholesterol 160 mg/dL (<200) 01/15/19 08:22 LDL Cholesterol, Calc 71 mg/dL (0-99) 01/15/19 08:22 HDL Cholesterol 68 mg/dL (40-60) H 01/15/19 08:22 TSH 1.240 mIU/L (0.465-4.680) 01/15/19 08:22 Urine Color Yellow 01/14/19 11:00 Urine Appearance Clear (Clear) 01/14/19 11:00 Urine pH 5.5 (5.0-8.0) 01/14/19 11:00 Ur Specific [place] 1.011 (1.001-1.035) 01/14/19 11:00 Urine Protein Negative (Negative) 01/14/19 11:00 Urine Glucose (UA) Negative (Negative) 01/14/19 11:00 Urine Ketones 1+ (Negative) H 01/14/19 11:00 Urine Blood Negative (Negative) 01/14/19 11:00 Urine Nitrite Negative (Negative) 01/14/19 11:00 Urine Bilirubin Negative (Negative) 01/14/19 11:00 Urine Urobilinogen <2.0 mg/dL (<2.0) 01/14/19 11:00 Ur Leukocyte Esterase Negative (Negative) 01/14/19 11:00 Urine Opiates Screen Not Detected (NotDetected) 01/14/19 11:00 Ur Oxycodone Screen Not Detected (NotDetected) 01/14/19 11:00 Urine Methadone Screen Not Detected (NotDetected) 01/14/19 11:00 Ur Propoxyphene Screen Not Detected (NotDetected) 01/14/19 11:00 Ur Barbiturates Screen Not Detected (NotDetected) 01/14/19 11:00 U Tricyclic Antidepress Not Detected (NotDetected) 01/14/19 11:00 Ur Phencyclidine Scrn Not Detected (NotDetected) 01/14/19 11:00 Ur Amphetamines Screen Not Detected (NotDetected) 01/14/19 11:00 U Methamphetamines Scrn Not Detected (NotDetected) 01/14/19 11:00 U Benzodiazepines Scrn Not Detected (NotDetected) 01/14/19 11:00 Urine Cocaine Screen Not Detected (NotDetected) 01/14/19 11:00 U Marijuana (THC) Screen Not Detected (NotDetected) 01/14/19 11:00 Serum Alcohol <10 mg/dL 01/14/19 11:23 Assessment and Plan Assessment: This is a 73-year-old male who presents emergency Department complaining of with family. Family states he has been hallucinating over a year but over the last 2 weeks is gotten considerably worse. Family states he has stopped drinking approximately at the same time. According to family he believes people cameras in his house and believes that the son's girlfriend isn't useful person. He also wanted the police today because he was again hallucinating. Patient himself denies any physical complaints. He denies headache he denies any numbness weakness. He denies being lightheaded. Patient denies chest pain di fficulty breathing or shortness of breath. Patient denies any palpitations. Patient denies abdominal pain patient denies nausea vomiting diarrhea. Patient is extremely poor historian since she cannot finish thought without starting another one and none of his. Patient is unable to convey a complete answer to any slightly involved questions.per family pt. is paranoid and has had hallucinations for a couple years but they have increased in the past 2 weeks. Today he went the police and he is making accusations that his sons gama gave some money to and was talking about sex to the guys that came in to work on the phone today. Per son there was none at the house today. Pt. states his son and "this young lady got screaming at each other and they went up the stairs which is dangerous because 14 percent of deaths happen from falling down stairs." Pt. is unable to focus on answering questions appropriately.Pt. denies and then did admit that he thought there are cameras in the house. - Related Data Home Medications Medication Instructions Recorded Confirmed Aspirin [Adult Low Dose Aspirin EC] 162 mg PO DAILY 04/04/17 01/14/19 Cholecalciferol (Vitamin D3) 2,000 unit PO DAILY 04/04/17 01/14/19 [Vitamin D3] Lisinopril [Zestril] 10 mg PO DAILY 04/04/17 01/14/19 Multivit-Min/FA/Lycopen/Lutein 1 tab PO DAILY 04/04/17 01/14/19 [Centrum Silver Tablet] Zinc 100 mg PO DAILY 04/04/17 01/14/19 Allergies Allergy/AdvReac Type Severity Reaction Status Date / Time animal dander Allergy Unknown Dyspnea Verified 01/14/19 10:44 VITAMIN B-12 INJECTION AdvReac Unknown FELT WEAK Uncoded 01/14/19 10:27 AND FAINT. Past Medical History Past Medical History: Cancer, CVA/TIA, Hypertension, Memory Impairment Additional Past Medical History / Comment(s): HX OF SKIN CANCER, POSSIBLE CVA- NO WEAKNESS, STATES SOME MEMORY PROBLEMS AND DIFFICULTY FINDING THE RIGHT WORDS. HX OF HEMORRHOIDS AND GENITAL AND ANAL WARTS THAT HE HAD PROCEDURE FOR REMOVAL. , FREQUENT BOWEL MOVEMENTS AND DIARRHEA. History of Any Multi-Drug Resistant Organisms: None Reported Past Surgical History: Adenoidectomy, Tonsillectomy Additional Past Surgical History / Comment(s): CIRCUMCISION, COLONOSCOPY AND PROCEDURES FOR REMOVAL OF GENITAL AND ANAL WARTS. 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 General Appearance: [ casual, bizarre, appears older than stated age Speech/Language: [ slow, rambled, mumbling, hesitant, halting, monotone, soft] Attitude/Behavior: [cooperative, guarded Mood: [depressed, anxious Affect: [flat, incongruent, blunted constricted] Orientation: [Not to time, person, place not to situation] Thought Content: [wnl Risk Factors: [Denies suicidal (ideations, plan), and/or Homicidal (ideations, plan), other] Perception: [wnl, denies hallucinations (auditory, visual, tactile), other] Thought Processes: [ concrete, circumstantial, tangential, other] Concentration/Attention Span: [ impaired] [Per observation and interview with the patient] Recent Memory: [ impaired] [0out of 3 in 3 minutes] Remote Memory: [ impaired] [past events, as related history] Intelligence: [ average [based on history, based on vocabulary, syntax, grammar, and content] Judgement: [Poor [per patient's behavior/history of present illness] Insight: [Poor] [understanding severity of illness/history of present illness] Admitting Diagnosis: [Acute psychosis and Wernicke-Korsakoff dementia; history of skin cancer and possible invasion to brain with radiation needs to be further evaluated however his CT imaging reveals great deal of atrophy over frontal, temporal parietal region and cerebellar degeneration; it appears to be lacunar infarcts thus indicating cerebrovascular disease] Patient Strengths - Steady employment/financial stability: [x] Housing stability: [x] Patient Limitations: [medication Initial Plan of Care: [He is admitted on an involuntary basis with myself filling out these second clinical certification for involuntary stay for reasons of acute psychosis. He'll be evaluated by medicine, psychiatry, nursing staff, social work and occupational therapy to develop a thorough biopsychosocial evaluation which will aid in the prognosis, disposition and discharge planning. He will be started on Risperdal 0.5 mg by mouth daily at bedtime for the acute psychosis. He also be started on Namenda 5 mg for the neurocognitive disorder] Current Visit: Yes Status: Acute Priority: Medium (2) Wernicke-Korsakoff syndrome (alcoholic) Current Visit: Yes Status: Acute Priority: Medium Hospital Course: Plan of Care: [He is admitted on an involuntary basis with myself filling out these second clinical certification for involuntary stay for reasons of acute psychosis. He'll be evaluated by medicine, psychiatry, nursing staff, social work and occupational therapy to develop a thorough biopsychosocial evaluation which will aid in the prognosis, disposition and discharge planning. He will be started on Risperdal 0.5 mg by mouth daily at bedtime for the acute psychosis. He also be started on Namenda 5 mg for the neurocognitive disorder 01/16/2019: He is tolerated the Namenda well as well as the Risperdal. Will add Aricept 5 mg by mouth daily at bedtime. He remains on 15 minute checks on the unit. He is easily redirectable but participates minimally in group activities.] 01/19/2019: he remains on 15 minutes checks. Increase Aricept 10 mg po qhs. Mental status examination time of discharge 11:10 AM 01/20/2019 The patient presents alert, pleasant, and cooperative. There calmly seated without any agitated behavior. [He] reports that [his] mood is good. Affect is congruent and euthymic. [He] deny having any suicidal or homicidal ideation intent or plan. [He] denies any auditory or visual hallucinations. There is no evidence of any delusional thought content. [His] thought process is linear and goal-directed. [His] speech is fluent and nonpressured. [His] memory and concentration is grossly intact for the purposes of this session. Patient Condition at Discharge: Stable Plan - Discharge Summary Discharge Rx Participant: Yes New Discharge Prescriptions: New Donepezil [Aricept] 10 mg PO HS 30 Days #30 tab cloNIDine HCL [Catapres] 0.1 mg PO BID 30 Days #60 tab Memantine [Namenda] 5 mg PO BID 30 Days #60 tab risperiDONE [RisperDAL] 0.5 mg PO HS 30 Days #30 tab Thiamine [Vitamin B-1] 100 mg PO DAILY tab Cholecalciferol [Vitamin D3 (25 Mcg = 1000 Iu)] 2,000 unit PO DAILY tab Continue Zinc 100 mg PO DAILY Multivit-Min/FA/Lycopen/Lutein [Centrum Silver Tablet] 1 tab PO DAILY Aspirin [Adult Low Dose Aspirin EC] 162 mg PO DAILY Lisinopril [Zestril] 10 mg PO DAILY 30 Days #30 tab Discontinued Cholecalciferol (Vitamin D3) [Vitamin D3] 2,000 unit PO DAILY Discharge Medication List Aspirin [Adult Low Dose Aspirin EC] 162 mg PO DAILY 04/04/17 [History] Multivit-Min/FA/Lycopen/Lutein [Centrum Silver Tablet] 1 tab PO DAILY 04/04/17 [History] Zinc 100 mg PO DAILY 04/04/17 [History] Cholecalciferol [Vitamin D3 (25 Mcg = 1000 Iu)] 2,000 unit PO DAILY tab 01/20/19 [Rx] Donepezil [Aricept] 10 mg PO HS 30 Days #30 tab 01/20/19 [Rx] Lisinopril [Zestril] 10 mg PO DAILY 30 Days #30 tab 01/20/19 [Rx] Memantine [Namenda] 5 mg PO BID 30 Days #60 tab 01/20/19 [Rx] Thiamine [Vitamin B-1] 100 mg PO DAILY tab 01/20/19 [Rx] cloNIDine HCL [Catapres] 0.1 mg PO BID 30 Days #60 tab 01/20/19 [Rx] risperiDONE [RisperDAL] 0.5 mg PO HS 30 Days #30 tab 01/20/19 [Rx] Follow up Appointment(s)/Referral(s): Based[facility] [Other] - 01/27/19 10:00 am (Miranda Webber) Amol Nunez MD [Primary Care Provider] - 1-2 days Activity/Diet/Wound Care/Special Instructions: Activity and diet as tolerated. No guns or weapons in the home. No drugs or alcohol not prescribed by physician. Take all medications as prescribed. Attend all follow up appointments as scheduled. If in need of medication refills, please go to your primary care physician, or to your out patient psychiatric provider. If in crisis, please call , or go to the nearest ER. Discharge Disposition: HOME SELF-CARE
== END 2019-01-20 12:18 | disposition home or self-care (01) | DRG 885 ==
LOC: EC 10:17 → 3MHU 14:43
PROVIDERS: ADMIT Psychiatry & Neurology Psychiatry; ATTEND Psychiatry & Neurology Psychiatry
DX: F23 Brief psychotic disorder (principal); F10.26 Alcohol dependence with alcohol-induced persisting amnestic disorder; I10 Essential (primary) hypertension; F41.9 Anxiety disorder, unspecified; E66.9 Obesity, unspecified; F51.04 Psychophysiologic insomnia; M19.91 Primary osteoarthritis, unspecified site; Y90.0 Blood alcohol level of less than 20 mg/100 ml; Z79.82 Long term (current) use of aspirin; Z79.899 Other long term (current) drug therapy; Z88.8 Allergy status to other drugs, medicaments and biological substances; Z91.09 Other allergy status, other than to drugs and biological substances; Z90.89 Acquired absence of other organs; Z87.891 Personal history of nicotine dependence; Z80.9 Family history of malignant neoplasm, unspecified; Z86.73 Personal history of transient ischemic attack (TIA), and cerebral infarction without residual deficits; Z85.828 Personal history of other malignant neoplasm of skin; Z87.19 Personal history of other diseases of the digestive system; Z68.30 Body mass index [BMI] 30.0-30.9, adult
CPT/HCPCS: 36415; 70450; 71046; 80053; 80061; 80076; 80306; 80320; 81003; 82075; 82140; 82607; 83036; 83735; 84443; 84484; 85025; 85610; 85730; 93005; 99285

== ENCOUNTER 2021-10-16 13:05 | Observation (INO) | payer MEDICARE, OTHER ==
[2021-10-16] MEDS ORDERED: SODIUM CHLORIDE 0.9% 1,000 ML IV ONE (13:34)
--- NOTE | 2021-10-16 13:47 | ED ---
General Adult HPI - General Stated complaint: weakness Time Seen by Provider: 10/16/21 13:06 Source: patient, family, RN notes reviewed Limitations: altered mental status - History of Present Illness Initial comments: Patient is a pleasant 76-year-old male presenting to the emergency department with generalized weakness. Patient has chronic advanced dementia that has slowly been worsening. Patient has not been eating well the last couple of days. Patient has been more weak than normal. Patient did have a fall at some point in the believe he may have had his head. Patient is extremity poor hist orian and offers no significant history. History is obtained from the son. Patient has been stooling himself. - Related Data Home Medications Medication Instructions Recorded Confirmed Donepezil [Aricept] 10 mg PO DAILY 10/16/21 10/16/21 Memantine [Namenda] 10 mg PO DAILY 10/16/21 10/16/21 amLODIPine/VALSARTAN [Exforge 1 tab PO DAILY 10/16/21 10/16/21 5-160 MG] risperiDONE [RisperDAL] 0.5 mg PO DAILY 10/16/21 10/16/21 Previous Rx's Medication Instructions Recorded cloNIDine HCL [Catapres] 0.1 mg PO BID 30 Days #60 tab 01/20/19 lisinopriL [Zestril] 10 mg PO DAILY 30 Days #30 tab 01/20/19 Allergies Allergy/AdvReac Type Severity Reaction Status Date / Time animal dander Allergy Unknown Dyspnea Verified 10/16/21 14:41 cyanocobalamin (vitamin B12) AdvReac Injection, Verified 10/16/21 14:41 [place] weak and faint Review of Systems ROS Statement: Those systems with pertinent positive or pertinent negative responses have been documented in the HPI. ROS Other: All systems not noted in ROS Statement are negative. Constitutional: Denies: fever Eyes: Denies: eye pain ENT: Denies: ear pain Respiratory: Denies: cough Cardiovascular: Denies: chest pain Endocrine: Denies: fatigue Gastrointestinal: Denies: abdominal pain Genitourinary: Denies: dysuria Musculoskeletal: Denies: back pain Skin: Denies: rash Neurological: Reports: as per HPI Past Medical History Past Medical History: Cancer, CVA/TIA, Dementia, Hypertension, Memory Impairment Additional Past Medical History / Comment(s): HX OF SKIN CANCER, POSSIBLE CVA- NO WEAKNESS, STATES SOME MEMORY PROBLEMS AND DIFFICULTY FINDING THE RIGHT WORDS. HX OF HEMORRHOIDS AND GENITAL AND ANAL WARTS THAT HE HAD PROCEDURE FOR REMOVAL. , FREQUENT BOWEL MOVEMENTS AND DIARRHEA. History of Any Multi-Drug Resistant Organisms: None Reported Past Surgical History: Adenoidectomy, Tonsillectomy Additional Past Surgical History / Comment(s): CIRCUMCISION, COLONOSCOPY AND PROCEDURES FOR REMOVAL OF GENITAL AND ANAL WARTS. Past Anesthesia/Blood Transfusion Reactions: No Reported Reaction Past Psychological History: Anxiety Past Alcohol Use History: Daily Additional Past Alcohol Use History / Comment(s): SMOKED CIGARS FOR APPROX 30 YEARS. Past Drug Use History: None Reported - Past Family History Mother Family Medical History: Cancer Father Family Medical History: Cancer Sister(s) Family Medical History: Cancer General Exam Limitations: no limitations General appearance: alert, in no apparent distress Head exam: Present: atraumatic Eye exam: Present: normal appearance, PERRL, EOMI ENT exam: Present: normal oropharynx Neck exam: Present: normal inspection. Absent: tenderness Respiratory exam: Present: normal lung sounds bilaterally Cardiovascular Exam: Present: regular rate, irregular rhythm GI/Abdominal exam: Present: soft. Absent: tenderness Extremities exam: Present: normal inspection, full ROM. Absent: tenderness, pedal edema, calf tenderness Neurological exam: Present: alert, CN II-XII intact. Absent: motor sensory deficit Expanded Neurological exam: Present: protecting the airway Patient oriented to: Present: person. Absent: place, time Motor strength exam: RUE: 5, LUE: 5, RLE: 5, LLE: 5 Eye Response: (4) open spontaneously Motor Response: (6) obeys commands Verbal Response: (4) confused conversation Psychiatric exam: Present: flat affect Skin exam: Present: normal color Course Vital Signs 10/16/21 14:55 Temperature 99.2 F Pulse Rate 78 Respiratory 16 Rate Blood Pressure 138/69 O2 Sat by Pulse 98 Oximetry EKG Findings - EKG Comments: EKG Findings:: A. fib with rate of 78. QRS 117. QT 379. QTC 412. Left axis. Left anterior fascicular block. No acute ST change. Poor R-wave progression. Medical Decision Making - Medical Decision Making Patient reevaluated. Patient and family updated. Case discussed with Dr. Lozano, who will admit for Dr. Glover. Patient does have new-onset A. fib with progressive declining mental status. Patient will value from neurology evaluat ion. Patient will likely need placement. - Lab Data Result diagrams: 10/16/21 14:19 10/16/21 14:19 Lab Results 10/16/21 10/16/21 10/16/21 Range/Units 14:19 14:19 14:19 WBC 7.8 (3.8-10.6) k/uL RBC 4.76 (4.30-5.90) m/uL Hgb 14.3 (13.0-17.5) gm/dL Hct 43.2 (39.0-53.0) % MCV 90.8 (80.0-100.0) fL MCH 30.1 (25.0-35.0) pg MCHC 33.1 (31.0-37.0) g/dL RDW 12.8 (11.5-15.5) % Plt Count 150 (150-450) k/uL MPV 7.7 Neutrophils % 69 % Lymphocytes % 18 % Monocytes % 10 % Eosinophils % 0 % Basophils % 2 % Neutrophils # 5.3 (1.3-7.7) k/uL Lymphocytes # 1.4 (1.0-4.8) k/uL Monocytes # 0.7 (0-1.0) k/uL Eosinophils # 0.0 (0-0.7) k/uL Basophils # 0.1 (0-0.2) k/uL PT 10.9 (9.0-12.0) sec INR 1.0 (<1.2) APTT 24.7 (22.0-30.0) sec Sodium 135 L (137-145) mmol/L Potassium 3.6 (3.5-5.1) mmol/L Chloride 102 (98-107) mmol/L Carbon Dioxide 26 (22-30) mmol/L Anion Gap 7 mmol/L BUN 25 H (9-20) mg/dL Creatinine 1.09 (0.66-1.25) mg/dL Est GFR (CKD-EPI)AfAm 75 (>60 ml/min/1.73 sqM) Est GFR (CKD-EPI)NonAf 65 (>60 ml/min/1.73 sqM) Glucose 110 H (74-99) mg/dL POC Glucose (mg/dL) (75-99) mg/dL POC Glu Novelty Twister Tender ID Calcium 8.8 (8.4-10.2) mg/dL Total Bilirubin 0.5 (0.2-1.3) mg/dL AST 35 (17-59) U/L ALT 34 (4-49) U/L Alkaline Phosphatase 101 (38-126) U/L Creatine Kinase 169 (55-170) U/L Troponin I (0.000-0.034) ng/mL Total Protein 6.3 (6.3-8.2) g/dL Albumin 3.7 (3.5-5.0) g/dL Urine Color Urine Appearance (Clear) Urine pH (5.0-8.0) Ur Specific [place] (1.001-1.035) Urine Protein (Negative) Urine Glucose (UA) (Negative) Urine Ketones (Negative) Urine Blood (Negative) Urine Nitrite (Negative) Urine Bilirubin (Negative) Urine Urobilinogen (<2.0) mg/dL Ur Leukocyte Esterase (Negative) Urine RBC (0-5) /hpf Urine WBC (0-5) /hpf Hyaline Casts (0-2) /lpf Urine Opiates Screen (NotDetected) Ur Oxycodone Screen (NotDetected) Urine Methadone Screen (NotDetected) Ur Propoxyphene Screen (NotDetected) Ur Barbiturates Screen (NotDetected) U Tricyclic Antidepress (NotDetected) Ur Phencyclidine Scrn (NotDetected) Ur Amphetamines Screen (NotDetected) U Methamphetamines Scrn (NotDetected) U Benzodiazepines Scrn (NotDetected) Urine Cocaine Screen (NotDetected) U Marijuana (THC) Screen (NotDetected) 10/16/21 10/16/21 10/16/21 Range/Units 14:19 15:04 15:26 WBC (3.8-10.6) k/uL RBC (4.30-5.90) m/uL Hgb (13.0-17.5) gm/dL Hct (39.0-53.0) % MCV (80.0-100.0) fL MCH (25.0-35.0) pg MCHC (31.0-37.0) g/dL RDW (11.5-15.5) % Plt Count (150-450) k/uL MPV Neutrophils % % Lymphocytes % % Monocytes % % Eosinophils % % Basophils % % Neutrophils # (1.3-7.7) k/uL Lymphocytes # (1.0-4.8) k/uL Monocytes # (0-1.0) k/uL Eosinophils # (0-0.7) k/uL Basophils # (0-0.2) k/uL PT (9.0-12.0) sec INR (<1.2) APTT (22.0-30.0) sec Sodium (137-145) mmol/L Potassium (3.5-5.1) mmol/L Chloride (98-107) mmol/L Carbon Dioxide (22-30) mmol/L Anion Gap mmol/L BUN (9-20) mg/dL Creatinine (0.66-1.25) mg/dL Est GFR (CKD-EPI)AfAm (>60 ml/min/1.73 sqM) Est GFR (CKD-EPI)NonAf (>60 ml/min/1.73 sqM) Glucose (74-99) mg/dL POC Glucose (mg/dL) 103 H (75-99) mg/dL POC Glu Novelty Twister Tender ID Glendy Rosario Calcium (8.4-10.2) mg/dL Total Bilirubin (0.2-1.3) mg/dL AST (17-59) U/L ALT (4-49) U/L Alkaline Phosphatase (38-126) U/L Creatine Kinase (55-170) U/L Troponin I <0.012 (0.000-0.034) ng/mL Total Protein (6.3-8.2) g/dL Albumin (3.5-5.0) g/dL Urine Color Light Yellow Urine Appearance Clear (Clear) Urine pH 5.0 (5.0-8.0) Ur Specific [place] 1.007 (1.001-1.035) Urine Protein Negative (Negative) Urine Glucose (UA) Negative (Negative) Urine Ketones Negative (Negative) Urine Blood Small H (Negative) Urine Nitrite Negative (Negative) Urine Bilirubin Negative (Negative) Urine Urobilinogen <2.0 (<2.0) mg/dL Ur Leukocyte Esterase Negative (Negative) Urine RBC 2 (0-5) /hpf Urine WBC 1 (0-5) /hpf Hyaline Casts 1 (0-2) /lpf Urine Opiates Screen Not Detected (NotDetected) Ur Oxycodone Screen Not Detected (NotDetected) Urine Methadone Screen Not Detected (NotDetected) Ur Propoxyphene Screen Not Detected (NotDetected) Ur Barbiturates Screen Not Detected (NotDetected) U Tricyclic Antidepress Not Detected (NotDetected) Ur Phencyclidine Scrn Not Detected (NotDetected) Ur Amphetamines Screen Not Detected (NotDetected) U Methamphetamines Scrn Not Detected (NotDetected) U Benzodiazepines Scrn Not Detected (NotDetected) Urine Cocaine Screen Not Detected (NotDetected) U Marijuana (THC) Screen Not Detected (NotDetected) - Radiology Data Radiology results: report reviewed (Computed tomography scan of the brain shows ventriculomegaly. Otherwise no acute intercranial process.), image reviewed (Chest x-ray shows chronic changes. No definite acute process.) Disposition Clinical Impression: Altered mental status, New onset a-fib Disposition: ADMITTED IP TO THIS [facility] Is patient prescribed a controlled substance at d/c from ED?: No Referrals: None,Stated [REFERRING] - 1-2 days Decision Time: 16:01
[2021-10-16 14:57] LABS: Basophils # (A) 0.1 k/uL (0-0.2); Basophils % (A) 2 %; Eosinophils % (A) 0 %; HCT 43.2 % (39.0-53.0); HGB 14.3 gm/dL (13.0-17.5); Lymphocytes # (A) 1.4 k/uL (1.0-4.8); Lymphocytes % (A) 18 %; MCH 30.1 pg (25.0-35.0); MCHC 33.1 g/dL (31.0-37.0); MCV 90.8 fL (80.0-100.0); Mean Platelet Volume 7.7; Monocytes # (A) 0.7 k/uL (0-1.0); Monocytes % (A) 10 %; Neutrophils # (A) 5.3 k/uL (1.3-7.7); Neutrophils % (A) 69 %; Platelet Count 150 k/uL (150-450); RBC 4.76 m/uL (4.30-5.90); RDW 12.8 % (11.5-15.5); WBC 7.8 k/uL (3.8-10.6)
[2021-10-16 15:06] LABS: Partial Thromboplastin Time 24.7 sec (22.0-30.0); Prothrombin Time 10.9 sec (9.0-12.0)
[2021-10-16 15:06] LABS: Glucose,Whole Blood 103 mg/dL (75-99)
[2021-10-16 15:08] LABS: Albumin 3.7 g/dL (3.5-5.0); Calcium 8.8 mg/dL (8.4-10.2); Potassium 3.6 mmol/L (3.5-5.1); Total Bilirubin 0.5 mg/dL (0.2-1.3); Total Protein 6.3 g/dL (6.3-8.2)
[2021-10-16 15:35] LABS: Appearance,Urine Clear (Clear); Bilirubin,Urine Negative (Negative); Blood,Urine Small (Negative); Color,Urine Light Yellow; Glucose,Urine (UA) Negative (Negative); Hyaline Casts,Urine 1 /lpf (0-2); Ketones,Urine Negative (Negative); Leukocyte Esterase,Urine Negative (Negative); Nitrite,Urine Negative (Negative); Protein,Urine Negative (Negative); RBC,Urine 2 /hpf (0-5); Specific Gravity,Urine 1.007 (1.001-1.035); Urobilinogen,Urine <2.0 mg/dL (<2.0); WBC,Urine 1 /hpf (0-5)
--- NOTE | 2021-10-16 15:43 | CT ---
EXAMINATION TYPE: CT brain wo con DATE OF EXAM: 10/16/2021 COMPARISON: 01/14/2019 HISTORY: 76-year-old male confusion, altered mental status TECHNIQUE: Examination was done in axial plane without intravenous contrast. Coronal and sagittal r econstructions performed. CT DLP: 1100.4 mGycm Automated exposure control for dose reduction was used. FINDINGS: There is no evidence of acute intracranial hemorrhage, acute ischemic changes, mass, mass-effect, or extra-axial fluid collection. There is no effacement of cerebral sulci or basal subarachnoid cister ns. There is no midline shift. [place]-white matter distinction is preserved. Moderate supratentorial volume loss with cerebral cortical atrophy and mild central cerebral atrophy. Secondary mild prominence to the ventricular system which has progressed from 2019. Advanced ratio c alculated at 0.35 VS 0.30, previously. Moderate mucosal thickening ethmoid air cells. Mastoid air cells well pneumatized. Slight rightward n vera septal deviation. The globes are intact. IMPRESSION: 1. There is [id number] ventriculomegaly which is progressed from 2019 (Fox ratio 0.35 versus 0.30, previously). Findings may reflect progressive central cerebral atrophy. Correlate with patient' s symptoms and clinical status to exclude the possibility of NPH. 2. Otherwise, no acute intracranial abnormality seen. 3. Moderate chronic ethmoid sinus disease.
[2021-10-16 15:54] LABS: Amphetamine Screen,Urine Not Detected (NotDetected); Barbiturate Screen,Urine Not Detected (NotDetected); Benzodiazepines Screen,Urine Not Detected (NotDetected); Cocaine Screen,Urine Not Detected (NotDetected); Methadone Screen, Urine Not Detected (NotDetected); Opiate Screen,Urine Not Detected (NotDetected); Oxycodone Screen, Urine Not Detected (NotDetected); Phencyclidine Screen,Urine Not Detected (NotDetected); Tricyclic Antidepressant,Urine Not Detected (NotDetected); Urn Cannabinoid Scrn Not Detected (NotDetected)
--- NOTE | 2021-10-16 15:54 | XR ---
EXAMINATION TYPE: XR chest 2V DATE OF EXAM: 10/16/2021 COMPARISON: 01/14/2019 HISTORY: 76-year-old male confusion, altered mental status TECHNIQUE: AP and lateral views FINDINGS: Heart borderline enlarged. Aorta within normal limits. Mild interstitial prominence is unchanged and has a chronic appearance. No consolidation or pleural effusion. Chronic healed fracture deformity rig ht clavicular shaft. Addition the mid and lower thoracic spine. IMPRESSION: Chronic changes. Borderline cardiomegaly. No definite acute process.
[2021-10-16] MEDS ORDERED: NALOXONE 0.4 MG/ML 1 ML VIAL IV PRN (16:02)
[2021-10-16] MEDS ORDERED: ASPIRIN 325 MG TAB PO SCH (16:15)
[2021-10-16] MEDS: SODIUM CHLORIDE 0.9% 1,000 ML IV SCH (18:27)
[2021-10-16] MEDS: cloNIDine HCL 0.1 MG TAB PO SCH (22:38)
--- NOTE | 2021-10-16 23:18 | P.HPIM ---
History of Present Illness H&P Date: 10/16/21 Chief Complaint: Altered mental status This is a 76-year-old patient of follows with visiting physicians Dr. Montanez. Chronic stable medical conditions include dementia, previous stroke, hypertension, anxiety, osteoarthritis. I'll every 2 years ago had a history of chronic alcohol dependence. Patient presented to the ER with generalized weakness. History that was obtained that patient dementia has been gradually worsening. He has not been eating for last few days. Becoming more weak. He apparently had a fall also. Patient himself is a poor historian. Cannot get much out of him. His son was present in the ER. Patient also has been stooling about himself. Review of systems cannot be obtained patient rather lethargic Past medical history to include: Dementia, previous stroke, hypertension, anxiety, ARTHRITIS, and drinking significant alcohol up to 2 years ago Social history: Patient drinking heavy up to 2 years ago. Did smoke cigars for about 30 years. Family history: Cancer Physical examination: Difficult to obtain VITAL SIGNS: 97, 64, 16, 150/62, 95% room air GENERAL: BMI 25.8. Lethargic EYES: Pupils equal. Conjunctiva normal. HEENT: [External appearance of nose and ears normal, oral cavity dry. NECK: JVD unable to assess; masses not palpable. HEART: First and second heart sounds are normal; no edema. LUNGS: Respiratory rate normal; decreased breath sounds. ABDOMEN: Soft, nontender, liver spleen not palpable, no masses palpable. PSYCH: Unable to assess patient very lethargicl. MUSCULOSKELETAL:No Clubbing/cyanosis;muscles-grossly intact. Evidence of OA NEUROLOGICAL: [Cranial nerves grossly intact; no facial asymmetry, unable to assess further LYMPHATICS: No lymph nodes palpable in the axilla and neck INVESTIGATIONS, reviewed in the clinical context: White count 7.8 hemoglobin 14.3 platelets 150 sodium 135 potassium 3.6 BUN 25 creatinine 1.09 Troponin I less than 0.012 albumin 3.7 UA negative for nitrite leukoesterase Urine drug screen: Negative Coronavirus [PCR]: Detected EKG tracing personally reviewed by me-wandering P waves Chest x-ray film personally reviewed by me-possible chronic changes Assessment and plan: -Advanced alcohol-induced dementia Check B12 level. -Medical asthenia from poor oral intake IV fluids -Acute on chronic medical debility PT OT -Essential hypertension Follow blood pressure. Catapres and lisinopril. 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 feeding with assistance. PTOT.. Check B12 level. Discharge planning. Resume Lisinopril. Fall precautions Past Medical History Past Medical History: Cancer, CVA/TIA, Dementia, Hypertension, Memory Impairment Additional Past Medical History / Comment(s): HX OF SKIN CANCER, POSSIBLE CVA- NO WEAKNESS, STATES SOME MEMORY PROBLEMS AND DIFFICULTY FINDING THE RIGHT WORDS. HX OF HEMORRHOIDS AND GENITAL AND ANAL WARTS THAT HE HAD PROCEDURE FOR REMOVAL. , FREQUENT BOWEL MOVEMENTS AND DIARRHEA. History of Any Multi-Drug Resistant Organisms: None Reported Past Surgical History: Adenoidectomy, Tonsillectomy Additional Past Surgical History / Comment(s): CIRCUMCISION, COLONOSCOPY AND P ROCEDURES FOR REMOVAL OF GENITAL AND ANAL WARTS. Past Anesthesia/Blood Transfusion Reactions: No Reported Reaction Past Psychological History: Anxiety Past Alcohol Use History: Daily Additional Past Alcohol Use History / Comment(s): SMOKED CIGARS FOR APPROX 30 YEARS. Past Drug Use History: None Reported - Past Family History Mother Family Medical History: Cancer Father Family Medical History: Cancer Sister(s) Family Medical History: Cancer Medications and Allergies Home Medications Medication Instructions Recorded Confirmed Type cloNIDine HCL [Catapres] 0.1 mg PO BID 30 Days #60 tab 01/20/19 10/16/21 Rx lisinopriL [Zestril] 10 mg PO DAILY 30 Days #30 tab 01/20/19 10/16/21 Rx Donepezil [Aricept] 10 mg PO DAILY 10/16/21 10/16/21 History Memantine [Namenda] 10 mg PO DAILY 10/16/21 10/16/21 History amLODIPine/VALSARTAN [Exforge 1 tab PO DAILY 10/16/21 10/16/21 History 5-160 MG] risperiDONE [RisperDAL] 0.5 mg PO DAILY 10/16/21 10/16/21 History Allergies Allergy/AdvReac Type Severity Reaction Status Date / Time animal dander Allergy Unknown Dyspnea Verified 10/16/21 14:41 cyanocobalamin (vitamin B12) AdvReac Injection, Verified 10/16/21 14:41 [place] weak and faint Physical Exam Vitals: Vital Signs Temp Pulse Resp BP Pulse Ox 10/16/21 22:30 97.0 F L 64 16 115/62 95 10/16/21 14:55 99.2 F 78 16 138/69 98 Intake and Output 10/16/21 10/16/21 10/17/21 14:59 22:59 06:59 Other: Weight 72.575 kg Results CBC & Chem 7: 10/16/21 14:19 10/16/21 14:19 Labs: Abnormal Lab Results - Last 24 Hours (Table) 10/16/21 10/16/21 10/16/21 Range/Units 14:19 15:04 15:26 Sodium 135 L (137-145) mmol/L BUN 25 H (9-20) mg/dL Glucose 110 H (74-99) mg/dL POC Glucose (mg/dL) 103 H (75-99) mg/dL Urine Blood Small H (Negative) Coronavirus (PCR) (Not Detectd) 10/16/21 Range/Units 16:38 Sodium (137-145) mmol/L BUN (9-20) mg/dL Glucose (74-99) mg/dL POC Glucose (mg/dL) (75-99) mg/dL Urine Blood (Negative) Coronavirus (PCR) Detected A (Not Detectd)
[2021-10-17] MEDS: SODIUM CHLORIDE 0.9% 1,000 ML IV SCH (08:46)
[2021-10-17] MEDS: lisinopriL 10 MG TAB PO SCH (08:48)
[2021-10-17] MEDS: cloNIDine HCL 0.1 MG TAB PO SCH ×2 (08:48→21:41)
[2021-10-17] MEDS: ASPIRIN 81 MG PO SCH (08:48)
[2021-10-17] MEDS: risperiDONE 0.5 MG TAB PO SCH (08:48)
[2021-10-17] MEDS: ENOXAPARIN 40 MG/0.4 ML SYRINGE SQ SCH (08:49)
--- NOTE | 2021-10-17 10:52 | P.CNNES ---
History of Present Illness Consult date: 10/17/21 Requesting physician: Vipul Milner Reason for Consult: Altered mental status History of Present Illness: This is a 76-year-old gentleman with medical history of reported chronic advanced dementia hypertension, alcohol use who presented emergency department on 10-16-2021 for generalized weakness. Some of the history is obtained from medical record that. Neurology is consulted for altered mental status. It seems that the patient has chronic advanced dementia and has slowly been worsening. Patient has not been eating the last couple days and been having generalized weakness. It seems to the patient had a fall unknown exactly when and he reported to the ED that he is head. No seizure-like activity noted by the nurse. Patient is on the amantadine 10 mg daily, Aricept 10 mg daily, clonidine 0.1mg twice a day, list Toprol, Risperdal 0.5 mg daily, amlodipine/valsartan. Some of the workup in the hospital consisted of: Initial vital signs his blood pressure of 138/69, heart rate is 78, respiratory of 16, temperature of 99.2 Fahrenheit oral pulse ox of 90% room air. CBC with differential is unremarkable. Chemistry panel is BUN is 25, serum glucose is 110, calcium is 8.8, AST and ALT is within normal limits. CK is 169. Sodium is 135, creatinine is 1.09. Urinalysis is negative for urinary tract infection Urine drug screen is not detected that. CT of the head is reported as there is mild to moderate ventriculomegaly which is a progress from 2019. Finding may reflect progressive central cerebral atrophy. Correlate with patient's symptoms and [place] status to exclude the possibility of normal pressure hydrocephalus. Otherwise no acute brain abnormality seen. Moderate chronic ethmoid sinus disease. I could not review the CT of the head because of technical issues. COVID-19 is positive. Review of Systems Review of system: Is limited but the pertinent positive and negative as per HPI. Past Medical History Past Medical History: Cancer, CVA/TIA, Dementia, Hypertension, Memory Impairment Additional Past Medical History / Comment(s): HX OF SKIN CANCER, POSSIBLE CVA- NO WEAKNESS, STATES SOME MEMORY PROBLEMS AND DIFFICULTY FINDING THE RIGHT WORDS. HX OF HEMORRHOIDS AND GENITAL AND ANAL WARTS THAT HE HAD PROCEDURE FOR REMOVAL. , FREQUENT BOWEL MOVEMENTS AND DIARRHEA. History of Any Multi-Drug Resistant Organisms: None Reported Past Surgical History: Adenoidectomy, Tonsillectomy Additional Past Surgical History / Comment(s): CIRCUMCISION, COLONOSCOPY AND PROCEDURES FOR REMOVAL OF GENITAL AND ANAL WARTS. Past Anesthesia/Blood Transfusion Reactions: No Reported Reaction Past Psychological History: Anxiety Past Alcohol Use History: Daily Additional Past Alcohol Use History / Comment(s): SMOKED CIGARS FOR APPROX 30 YEARS. Past Drug Use History: None Reported - Past Family History Mother Family Medical History: Cancer Father Family Medical History: Cancer Sister(s) Family Medical History: Cancer Medications and Allergies Home Medications Medication Instructions Recorded Confirmed Type cloNIDine HCL [Catapres] 0.1 mg PO BID 30 Days #60 tab 01/20/19 10/16/21 Rx lisinopriL [Zestril] 10 mg PO DAILY 30 Days #30 tab 01/20/19 10/16/21 Rx Donepezil [Aricept] 10 mg PO DAILY 10/16/21 10/16/21 History Memantine [Namenda] 10 mg PO DAILY 10/16/21 10/16/21 History amLODIPine/VALSARTAN [Exforge 1 tab PO DAILY 10/16/21 10/16/21 History 5-160 MG] risperiDONE [RisperDAL] 0.5 mg PO DAILY 10/16/21 10/16/21 History Allergies Allergy/AdvReac Type Severity Reaction Status Date / Time animal dander Allergy Unknown Dyspnea Verified 10/16/21 14:41 cyanocobalamin (vitamin B12) AdvReac Injection, Verified 10/16/21 14:41 [place] weak and faint Physical Examination - Vital Signs Vital Signs: Vital Signs Temp Pulse Resp BP Pulse Ox 10/16/21 14:55 99.2 F 78 16 138/69 98 Intake and Output 10/16/21 10/16/21 10/16/21 06:59 14:59 22:59 Other: Weight 72.575 kg GENERAL: The patient is lying in bed and is not in acute distress. CHEST: The heart rate is regular rate rhythm. No murmurs to auscultation. LUNG: Clear to auscultation bilaterally no wheezing noted throughout. Not labored breathing. ABDOMEN/GI: Bowel sounds present in all 4 quadrants. No tenderness to palpation throughout. NEUROLOGICAL: Limited because of his condition. Higher mental function: The patient is drowsy but is awakeable to voice. He is oriented to self only. He is not verbalizing much. He follows few simple commands (sticking tongue out, wiggling feet). Hard to assess language because of his cooperation. No neglect. , Cranial nerves: The pupils are round, equal and reactive to light. EOM: Is able to look to right and left without nystagmus. No facial weakness. No dyarthria. Could not assess rest of cranial nerves because of his condition/cooperation. Motor: The strength is limited since his cooperation. Is able to raise bilateral upper extremities above gravity and wiggling toes. Normal tone and bulk. Cerebellum: Could not assess. Sensation: Could not assess light touch. Reflexes (right/left): 1+ throughout. Plantars are mute bilaterally. Results - Laboratory Findings CBC and BMP: 10/16/21 14:19 10/16/21 14:19 Abnormal Lab Findings: Abnormal Labs 10/16/21 10/16/21 10/16/21 14:19 15:04 15:26 Sodium 135 L BUN 25 H Glucose 110 H POC Glucose (mg/dL) 103 H Urine Blood Small H Assessment and Plan Assessment: Encephalopathy like due to COVID-19 infection and his advanced dementia. COVID-19 infection. Chronic advanced dementia and is progressively worsening History of hypertension and on presentation was normal Alcohol use Plan: vitamin B12: 1026, TSH: 2.94, ammonia <9.. Pending folate, methylmalonic acid. I ordered a routine EEG. I'll not start the patient on antiepileptic drug unless there is epileptiform discharges or seizure on the EEG. Per the drivability technician the patient was more cooperative and following more simple commands to physical therapy team. Continue neuro checks Consulted PT and OT. Started the patient on thiamine 100mg daily. Regarding further evaluation of ?normal pressure hydrocephalus workup will defer as an outpatient neurologist.] Patient is on fall precaution. Cardiology is consulted for new onset atrial fibrillation We'll defer the rest of the medical management to primary team. The plan is discussed with the patient's nurse. Thank you for the consultation. Rosas Connell M.D. Neuro-Hospitalist Time with Patient: Greater than 30
[2021-10-17] MEDS: METOPROLOL TARTRATE 25 MG TAB PO SCH ×2 (12:10→21:41)
[2021-10-17] MEDS: THIAMINE 100 MG TAB PO SCH (12:10)
--- NOTE | 2021-10-17 12:19 | P.CRDCN ---
History of Present Illness History of present illness: HISTORY OF PRESENTING ILLNESS This is a pleasant 76-year-old male past medical history significant for hypertension, dementia previous CVA,. 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 We have been asked to see in consultation for atrial fibrillation. Patient is a poor historian, is alert and oriented 0. HPI information obtained from patient's chart. Apparently patient presented to the emergency department with generalized weakness, decreased appetite, fell at home, incontinence. On admission patient found to be covid positive. At bedside patient denies any complaints or pain. Blood pressure 147/66, heart rate 74, afebrile, oxygen saturations 96% on room air DIAGNOSTICS EKG reveals sinus rhythm, heart rate 78, PVCs and PVC no atrial fibrillation noted Telemetry tracings indicate sinus mechanism, heart rates in the 60s, with PACs and occasional PVCs Chest xray chronic changes, borderline cardiomegaly, no acute cardiopulmonary process, chronic healed fracture deformity of the right clavicle clavicular shaft Brain CT revealed mild to moderate ventricular megaly which has progressed in 2019, progressive central cerebral atrophy, no acute intracranial abnormality, either chronic ethmoid sinus disease. Laboratory reviewed, troponin negative 3, UA Negative, UA negative, COVID-19 positive, TSH within normal limits, CBC unremarkable, sodium 135, potassium 3.6, BUN 25, serum creatinine 1.0 Current home medications include Aricept, Namenda, amlodipine/valsartan 5160 milligrams daily, clonidine 0.1 mg twice a day, lisinopril 10 mg daily REVIEW OF SYSTEMS At the time of my exam: Unable to obtain an accurate review of systems due to patient's mental status PHYSICAL EXAMINATION Vitals reviewed CONSTITUTIONAL: No apparent distress. HEENT: Head is normocephalic. Sclerae red. Mucous membranes of the mouth are moist. No JVD. CHEST EXAMINATION: Lungs are clear to auscultation. No chest wall tenderness is noted on palpation or with deep breathing. HEART EXAMINATION: Regular rate and rhythm. S1, S2 heard ABDOMEN: Soft, nontender. Positive bowel sounds. EXTREMITIES: 2+ peripheral pulses, no lower extremity edema and no calf tendern ess. NEUROLOGIC EXAMINATION: Patient is awake, alert not oriented, confused ASSESSMENT Covid-19 Infection Generalized weakness, decreased appetite Sinus rhythm with PACs Hypertension Dementia History of CVA PLAN EKG and telemetry reviewed, no evidence of atrial fibrillation. Patient in sinus mechanism with PACs, occasional PVV. Start metoprolol tartrate 25mg BID. We will sign off at this time. Please reconsult if needed. Nurse practitioner note has been reviewed by physician. Signing provider agrees with the documented findings, assessment, and plan of care. Past Medical History Past Medical History: Cancer, CVA/TIA, Dementia, Hypertension, Memory Impairment Additional Past Medical History / Comment(s): HX OF SKIN CANCER, POSSIBLE CVA- NO WEAKNESS, STATES SOME MEMORY PROBLEMS AND DIFFICULTY FINDING THE RIGHT WORDS. HX OF HEMORRHOIDS AND GENITAL AND ANAL WARTS THAT HE HAD PROCEDURE FOR REMOVAL. , FREQUENT BOWEL MOVEMENTS AND DIARRHEA. History of Any Multi-Drug Resistant Organisms: None Reported Past Surgical History: Adenoidectomy, Tonsillectomy Additional Past Surgical History / Comment(s): CIRCUMCISION, COLONOSCOPY AND PROCEDURES FOR REMOVAL OF GENITAL AND ANAL WARTS. Past Anesthesia/Blood Transfusion Reactions: No Reported Reaction Past Psychological History: Anxiety Past Alcohol Use History: Daily Additional Past Alcohol Use History / Comment(s): SMOKED CIGARS FOR APPROX 30 YEARS. Past Drug Use History: None Reported - Past Family History Mother Family Medical History: Cancer Father Family Medical History: Cancer Sister(s) Family Medical History: Cancer Medications and Allergies Home Medications Medication Instructions Recorded Confirmed Type cloNIDine HCL [Catapres] 0.1 mg PO BID 30 Days #60 tab 01/20/19 10/16/21 Rx lisinopriL [Zestril] 10 mg PO DAILY 30 Days #30 tab 01/20/19 10/16/21 Rx Donepezil [Aricept] 10 mg PO DAILY 10/16/21 10/16/21 History Memantine [Namenda] 10 mg PO DAILY 10/16/21 10/16/21 History amLODIPine/VALSARTAN [Exforge 1 tab PO DAILY 10/16/21 10/16/21 History 5-160 MG] risperiDONE [RisperDAL] 0.5 mg PO DAILY 10/16/21 10/16/21 History Allergies Allergy/AdvReac Type Severity Reaction Status Date / Time animal dander Allergy Unknown Dyspnea Verified 10/16/21 14:41 cyanocobalamin (vitamin B12) AdvReac Injection, Verified 10/16/21 14:41 [place] weak and faint Physical Exam Vitals: Vital Signs Temp Pulse Pulse Resp BP BP Pulse Ox 10/17/21 08:51 74 147/66 10/17/21 07:58 98.8 F 84 18 153/76 96 10/17/21 06:17 98.4 F 92 17 145/81 95 10/17/21 05:16 98.5 F 100 17 142/80 98 10/17/21 03:47 98.6 F 105 H 17 165/80 96 10/17/21 00:00 97.2 F L 69 15 119/74 98 10/16/21 22:30 97.0 F L 64 16 115/62 95 10/16/21 14:55 99.2 F 78 16 138/69 98 Intake and Output 10/16/21 10/17/21 10/17/21 22:59 06:59 14:59 Other: Voiding Method Urinal Results 10/16/21 14:19 10/16/21 14:19 Cardiac Enzymes 10/16/21 10/16/21 10/16/21 Range/Units 14:19 14:19 17:23 AST 35 (17-59) U/L Troponin I <0.012 <0.012 (0.000-0.034) ng/mL 10/16/21 Range/Units 22:02 AST (17-59) U/L Troponin I <0.012 (0.000-0.034) ng/mL Coagulation 10/16/21 Range/Units 14:19 PT 10.9 (9.0-12.0) sec APTT 24.7 (22.0-30.0) sec CBC 10/16/21 Range/Units 14:19 WBC 7.8 (3.8-10.6) k/uL RBC 4.76 (4.30-5.90) m/uL Hgb 14.3 (13.0-17.5) gm/dL Hct 43.2 (39.0-53.0) % Plt Count 150 (150-450) k/uL Comprehensive Metabolic Panel 10/16/21 Range/Units 14:19 Sodium 135 L (137-145) mmol/L Potassium 3.6 (3.5-5.1) mmol/L Chloride 102 (98-107) mmol/L Carbon Dioxide 26 (22-30) mmol/L BUN 25 H (9-20) mg/dL Creatinine 1.09 (0.66-1.25) mg/dL Glucose 110 H (74-99) mg/dL Calcium 8.8 (8.4-10.2) mg/dL AST 35 (17-59) U/L ALT 34 (4-49) U/L Alkaline Phosphatase 101 (38-126) U/L Total Protein 6.3 (6.3-8.2) g/dL Albumin 3.7 (3.5-5.0) g/dL Current Medications Generic Name Dose Route Start Last Admin Trade Name Freq PRN Reason Stop Dose Admin Aspirin 81 mg 10/17/21 09:00 10/17/21 08:48 Aspirin 81 Mg PO 81 mg DAILY TEJAL Administration Clonidine 0.1 mg 10/16/21 21:30 10/17/21 08:48 Clonidine Hcl 0.1 Mg Tab PO 0.1 mg BID TEJAL Administration Enoxaparin Sodium 40 mg 10/17/21 09:00 10/17/21 08:49 Enoxaparin 40 Mg/0.4 Ml Syringe SQ 40 mg DAILY TEJAL Administration Sodium Chloride 1,000 mls @ 75 mls/hr 10/16/21 16:15 10/17/21 08:46 Saline 0.9% IV 75 mls/hr .[id number] TEJAL Administration Lisinopril 10 mg 10/17/21 09:00 10/17/21 08:48 Lisinopril 10 Mg Tab PO 10 mg DAILY TEJAL Administration Naloxone HCl 0.2 mg 10/16/21 16:02 Naloxone 0.4 Mg/Ml 1 Ml Vial IV Q2M PRN Opioid Reversal Risperidone 0.5 mg 10/17/21 09:00 10/17/21 08:48 Risperidone 0.5 Mg Tab PO 0.5 mg DAILY TEJAL Administration Intake and Output 10/16/21 10/17/21 10/17/21 22:59 06:59 14:59 Other: Voiding Method Urinal 10/16/21 14:19 10/16/21 14:19
--- NOTE | 2021-10-17 14:28 | EEG ---
ELECTROENCEPHALOGRAM REPORT DATE OF SERVICE: 10/17/2021. CLINICAL HISTORY: This is a 76-year-old gentleman with a history of dementia who was having a worsening of altered mental status. The video EEG was obtained to evaluate for seizure epileptiform activity. RELEVANT MEDICATION: The patient is not on any antiepileptic drug. EEG TYPE: A routine 21-channel EEG is performed with video using the 10/20 electrode placement system. DESCRIPTION: Wakefulness and drowsiness are obtained. During awake state, the background consists of low to moderate voltage of 4 to 4.5 hertz theta activity. There is no physiological stage II sleep architecture. There is no focal slowing. Interictal and ictal is none. ACTIVATION PROCEDURE: Photic stimulation and hyperventilation are not performed. CLINICAL INTERPRETATION: This is an abnormal routine EEG. The background slowing is suggestive of moderate to severe encephalopathy. There is no focal slowing, epileptiform discharge or seizure on the EEG. Clinical correlation is recommended. MONA / [id number]: [id number] / MTDD
[2021-10-17 18:10] LABS: Folate, Serum >20.00 ng/mL (4.40-31.00)
--- NOTE | 2021-10-17 20:39 | P.PN ---
Progress Note - Text Progress Note Date: 10/17/21 Chief Complaint: Altered mental status This is a 76-year-old patient of follows with visiting physicians Dr. Montanez. Chronic stable medical conditions include dementia, previous stroke, hypertension, anxiety, osteoarthritis. I'll every 2 years ago had a history of chronic alcohol dependence. Patient presented to the ER with generalized weakness. History that was obtained that patient dementia has been gradually worsening. He has not been eating for last few days. Becoming more weak. He apparently had a fall also. Patient himself is a poor historian. Cannot get much out of him. His son was present in the ER. Patient also has been stooling about himself. Admitted with advanced dementia, encephalopathy from [facility]-, medical asthenia. October 17: Patient more awake today. Reclining in bed. 8 some lunch. Does not know what place as this and why he is here. Was able to answer simple questions. Congested cough Active Medications Aspirin (Aspirin 81 Mg) 81 mg PO DAILY [facility] Last Admin: 10/17/21 08:48 Dose: 81 mg Documented by: Clonidine (Clonidine Hcl 0.1 Mg Tab) 0.1 mg PO BID [facility] Last Admin: 10/17/21 08:48 Dose: 0.1 mg Documented by: Enoxaparin Sodium (Enoxaparin 40 Mg/0.4 Ml Syringe) 40 mg SQ DAILY [facility] Last Admin: 10/17/21 08:49 Dose: 40 mg Documented by: Sodium Chloride (Saline 0.9%) 1,000 mls @ 75 mls/hr IV .[id number] [facility] Last Admin: 10/17/21 08:46 Dose: 75 mls/hr Documented by: Lisinopril (Lisinopril 10 Mg Tab) 10 mg PO DAILY [facility] Last Admin: 10/17/21 08:48 Dose: 10 mg Documented by: Metoprolol Tartrate (Metoprolol Tartrate 25 Mg Tab) 25 mg PO BID [facility] Last Admin: 10/17/21 12:10 Dose: 25 mg Documented by: Naloxone HCl (Naloxone 0.4 Mg/Ml 1 Ml Vial) 0.2 mg IV Q2M PRN PRN Reason: Opioid Reversal Risperidone (Risperidone 0.5 Mg Tab) 0.5 mg PO DAILY [facility] Last Admin: 10/17/21 08:48 Dose: 0.5 mg Documented by: Thiamine HCl (Thiamine 100 Mg Tab) 100 mg PO DAILY [facility] Last Admin: 10/17/21 12:10 Dose: 100 mg Documented by: Past medical history to include: Dementia, previous stroke, hypertension, anxiety, ARTHRITIS, and drinking significant alcohol up to 2 years ago Social history: Patient drinking heavy up to 2 years ago. Did smoke cigars for about 30 years. Family history: Cancer Physical examination: Difficult to obtain VITAL SIGNS: 98.2, 83, 18, 135/70, 96% room air GENERAL: Reclining in bed, more awake, answering simple questions, congested cough EYES: Pupils equal. Conjunctiva normal. HEENT: [External appearance of nose and ears normal, oral cavity dry. NECK: JVD unable to assess; masses not palpable. HEART: First and second heart sounds are normal; no edema. LUNGS: Respiratory rate increased; decreased breath sounds. ABDOMEN: Soft, nontender, liver spleen not palpable, no masses palpable. PSYCH: Does not know that he is or why he is here. MUSCULOSKELETAL:No Clubbing/cyanosis;muscles-grossly intact. Evidence of OA NEUROLOGICAL: [Cranial nerves grossly intact; no facial asymmetry, moving all 4 limbs INVESTIGATIONS, reviewed in the clinical context: B12: 1026 TSH 2.9 ammonia less than 9 White count 7.8 hemoglobin 14.3 platelets 150 sodium 135 potassium 3.6 BUN 25 creatinine 1.09 Troponin I less than 0.012 albumin 3.7 UA negative for nitrite leukoesterase Urine drug screen: Negative Coronavirus [PCR]: Detected EKG tracing personally reviewed by me-wandering P waves Chest x-ray film personally reviewed by me-possible chronic changes Assessment and plan: -Advanced alcohol-induced dementia -Acute metabolic encephalopathy from COVID-19, some improvement -Medical asthenia from poor oral intake IV fluids -Acute on chronic medical debility PT OT -COVID-19 with a congested cough. Pulse ox 97% room air. -Essential hypertension Catapres and lisinopril. -COPD in a previous smoker Ventolin 2 puff 4 times a day Continue gentle hydration. Current medications. Albuterol inhaler. Plan is for patient to return home with home care. Prognosis guarded.
[2021-10-18 06:16] VITALS: RESP 18
[2021-10-18] MEDS: lisinopriL 10 MG TAB PO SCH (08:37)
[2021-10-18] MEDS: THIAMINE 100 MG TAB PO SCH (08:37)
[2021-10-18] MEDS: ASPIRIN 81 MG PO SCH (08:37)
[2021-10-18] MEDS: cloNIDine HCL 0.1 MG TAB PO SCH (08:37)
[2021-10-18] MEDS: ENOXAPARIN 40 MG/0.4 ML SYRINGE SQ SCH (08:37)
[2021-10-18] MEDS: risperiDONE 0.5 MG TAB PO SCH (08:37)
[2021-10-18] MEDS: SODIUM CHLORIDE 0.9% 1,000 ML IV SCH ×2 (08:37→08:38)
[2021-10-18] MEDS: METOPROLOL TARTRATE 25 MG TAB PO SCH (08:37)
[2021-10-18] MEDS: ALBUTEROL HFA INHALER INHALATION SCH ×3 (09:13→15:32)
--- NOTE | 2021-10-18 09:58 | P.PN ---
Subjective Progress Note Date: 10/18/21 The patient is seen at bedside and per nurse he is about the same. Objective - Vital Signs Vital signs: Vital Signs Temp 98.2 F 10/17/21 20:00 Pulse 88 10/18/21 06:00 Resp 18 10/18/21 06:00 BP 133/66 10/18/21 06:00 Pulse Ox 92 L 10/18/21 06:00 Intake & Output 10/17/21 10/18/21 10/18/21 18:59 06:59 18:59 Intake Total 208 Output Total 300 1 Balance -92 -1 Weight 72.575 kg Intake: Oral 208 Output: Urine 300 1 Other: Voiding Method Urinal Urinal # Voids 2 # Bowel Movements 1 - Exam GENERAL: The patient is lying in bed and is not in acute distress. NEUROLOGICAL: Limited because of his condition. Higher mental function: The patient is alert, oriented to self only. He is not verbalizing much. He follows few simple commands (sticking tongue out, moving hand and wiggling feet). Hard to assess language because of his condition. No neglect. , Cranial nerves: The pupils are round, equal and reactive to light. EOM: Is able to look to right and left without nystagmus. No facial weakness. No dyarthria. Could not assess rest of cranial nerves because of his condition/cooperation. Motor: The strength is limited since his cooperation. Is able to raise bilateral upper extremities above gravity and wiggling toes. Normal tone and bulk. Patient has tremor of bilateral upper extremities and it appears with some movement and not at rest. Cerebellum: Normal finger to nose. Sensation: Could not assess light touch. Reflexes (right/left): 1+ throughout. Plantars are mute bilaterally. WORK-UP: vitamin B12: 1026, TSH: 2.94, ammonia <9. Serum folate >20. Ammonia <9.0 CK is 169. Sodium is 135, creatinine is 1.09. Urinalysis is negative for urinary tract infection Urine drug screen is not detected. CT of the head is reported as there is mild to moderate ventriculomegaly which is a progress from 2019. Finding may reflect progressive central cerebral atrophy. Correlate with patient's symptoms and Kale status to exclude the possibility of normal pressure hydrocephalus. Otherwise no acute brain abnormality seen. Moderate chronic ethmoid sinus disease. I could not review the CT of the head because of technical issues. Routine EEG on 10/17/2021 is abnormal. The background slowing suggestive of moderate to severe encephalopathy. There is no focal slowing, epileptiform discharges or seizure on EEG. COVID-19 is positive. - Labs CBC & Chem 7: 10/16/21 14:19 10/16/21 14:19 Labs: Abnormal Lab Results - Last 24 Hours (Table) 10/18/21 Range/Units 08:04 D-Dimer 1.28 H (<0.60) mg/L FEU Assessment and Plan Assessment: Encephalopathy like due to COVID-19 infection and in addition to his advanced dementia. COVID-19 infection. Chronic advanced dementia and is progressively worsening History of hypertension and on presentation was normal Alcohol use (last drink since 2018) Plan: Pending methylmalonic acid. Continue neuro checks Consulted PT and OT. Continue thiamine 100mg daily. Regarding further evaluation of ?normal pressure hydrocephalus workup will defer as an outpatient neurologist. As well his tremors work-up as outpatient Patient is on fall precaution. Cardiology is consulted for new onset atrial fibrillation We'll defer the rest of the medical management to primary team. The plan is discussed with the patient's nurse and his case supervisor. I spoke with patient's son (Jeison) via phone, and he stated his current neurological exam is same about the 3 months. He said his father having dementia for the past 4 years. The patient had significant alcohol use and has been drinking for years and last drink was possibly 2018 and it was felt by his PCP that his dementia was " alcohol dementia". He is not wobbly when walks and is independent when walking and able to feed himself. He is only oriented to self only. The patient feel this past Saturday and was generalized weak. He has been having urinary incontinence for 3 months. She is on Aricept 10 mg daily L home as well as Namenda 10 mg daily. They live in the same house and one family lives upstairs and other downstairs. Otherwise there is no further neurological work-up and patient is clear from neurological perspective. Rosas Connell M.D. Neuro-Hospitalist Time with Patient: Less than 30
[2021-10-18] MEDS ORDERED: MEMANTINE 10 MG TAB PO SCH (10:15)
[2021-10-18 12:13] VITALS: BP 159/86; PULSE 99; TEMP 98.6
[2021-10-18] MEDS ORDERED: DONEPEZIL 10 MG TAB PO SCH (21:00)
--- NOTE | 2021-10-18 22:17 | P.DS ---
Providers Date of admission: 10/16/21 16:02 Expected date of discharge: 10/18/21 Attending physician: Corky Lozano Consults: 10/16/21 16:03 Consult Physician Routine Consulting Provider: Erika Moreno Consult Reason/Comments: new onset a fib Do you want consulting provider notified?: Yes Consult Physician Routine Consulting Provider: Rosas Connell Consult Reason/Comments: ams Do you want consulting provider notified?: Yes Primary care physician: Toni Montanez MD Hospital Course: Chief Complaint: Altered mental status This is a 76-year-old patient of follows with visiting physicians Dr. Montanez. Chronic stable medical conditions include dementia, previous stroke, hypertension, anxiety, osteoarthritis. I'll every 2 years ago had a history of chronic alcohol dependence. Patient presented to the ER with generalized weakness. History that was obtained that patient dementia has been gradually worsening. He has not been eating for last few days. Becoming more weak. He apparently had a fall also. Patient himself is a poor historian. Cannot get much out of him. His son was present in the ER. Patient also has been stooling about himself. Admitted with advanced dementia, encephalopathy from [place] [id number], medical asthenia. October 17: Patient more awake today. Reclining in bed. 8 some lunch. Does not know what place as this and why he is here. Was able to answer simple questions. Congested cough October 18: manager general coordinated for patient to be going home with family. Prognosis guarded. Oral intake fair. Past medical history to include: Dementia, previous stroke, hypertension, anxiety, ARTHRITIS, and drinking significant alcohol up to 2 years ago Social history: Patient drinking heavy up to 2 years ago. Did smoke cigars for about 30 years. Family history: Cancer Physical examination: Difficult to obtain VITAL SIGNS: 98.6, 99, 18, 1 59 x 86, 92% room air GENERAL: Reclining in bed, , answering simple questions, occasional cough EYES: Pupils equal. Conjunctiva normal. HEENT: [External appearance of nose and ears normal, oral cavity dry. NECK: JVD unable to assess; masses not palpable. HEART: First and second heart sounds are normal; no edema. LUNGS: Respiratory rate increased; decreased breath sounds. ABDOMEN: Soft, nontender, liver spleen not palpable, no masses palpable. PSYCH: Does not know that he is or why he is here. MUSCULOSKELETAL:No Clubbing/cyanosis;muscles-grossly intact. Evidence of OA NEUROLOGICAL: [Cranial nerves grossly intact; no facial asymmetry, moving all 4 limbs INVESTIGATIONS, reviewed in the clinical context: B12: 1026 TSH 2.9 ammonia less than 9 White count 7.8 hemoglobin 14.3 platelets 150 sodium 135 potassium 3.6 BUN 25 creatinine 1.09 Troponin I less than 0.012 albumin 3.7 UA negative for nitrite leukoesterase Urine drug screen: Negative Coronavirus [PCR]: Detected EKG tracing personally reviewed by me-wandering P waves Chest x-ray film personally reviewed by me-possible chronic changes Assessment and plan: -Advanced alcohol-induced dementia -Acute metabolic encephalopathy from COVID-19, some improvement -Medical asthenia from poor oral intake IV fluids -Acute on chronic medical debility PT OT -COVID-19 with a congested cough. Pulse ox 97% room air. -Essential hypertension Metoprolol, Zestril. Stop Catapres -COPD in a previous smoker Ventolin 2 puff 4 times a day Disposition: Home with family Plan - Discharge Summary Discharge Rx Participant: No New Discharge Prescriptions: New Metoprolol Tartrate [Lopressor] 50 mg PO BID #60 tab Aspirin 81 mg PO DAILY Albuterol Inhaler [Ventolin Hfa Inhaler] 1 puff INHALATION RT-QID #1 gm Thiamine [Vitamin B-1] 100 mg PO DAILY #30 tab Continue lisinopriL [Zestril] 10 mg PO DAILY 30 Days #30 tab Memantine [Namenda] 10 mg PO DAILY risperiDONE [RisperDAL] 0.5 mg PO DAILY Donepezil [Aricept] 10 mg PO HS #0 Discontinued cloNIDine HCL [Catapres] 0.1 mg PO BID 30 Days #60 tab amLODIPine/VALSARTAN [Exforge 5-160 MG] 1 tab PO DAILY Discharge Medication List lisinopriL [Zestril] 10 mg PO DAILY 30 Days #30 tab 01/20/19 [Rx] Memantine [Namenda] 10 mg PO DAILY 10/16/21 [History] risperiDONE [RisperDAL] 0.5 mg PO DAILY 10/16/21 [History] Albuterol Inhaler [Ventolin Hfa Inhaler] 1 puff INHALATION RT-QID #1 gm 10/18/21 [Rx] Aspirin 81 mg PO DAILY 10/18/21 [Rx] Donepezil [Aricept] 10 mg PO HS #0 10/18/21 [Rx] Metoprolol Tartrate [Lopressor] 50 mg PO BID #60 tab 10/18/21 [Rx] Thiamine [Vitamin B-1] 100 mg PO DAILY #30 tab 10/18/21 [Rx] Follow up Appointment(s)/Referral(s): Toni Montanez MD [Primary Care Provider] - 1 Week (message left at office to call you to set up follow up appointment) [facility], [NON-STAFF] - None,Stated [REFERRING] - 1-2 days Patient Instructions/Handouts: Coronavirus Disease 2019 (COVID-19), A-fib (Atrial Fibrillation) (DC), Altered Mental Status (ED) Activity/Diet/Wound Care/Special Instructions: let his pharmaavcy know - lopressor 50 mg po bid is the correct Rx Discharge Disposition: HOME SELF-CARE
== END 2021-10-18 16:32 | disposition home or self-care (01) ==
LOC: EC 13:05 → 6NMEDSUR 16:02 → 3SCARD 10-17 03:30
PROVIDERS: ADMIT Hospitalist; ATTEND Hospitalist
DX: F10.27 Alcohol dependence with alcohol-induced persisting dementia (principal); G93.41 Metabolic encephalopathy; U07.1 COVID-19; R05.9 Cough, unspecified; R53.81 Other malaise; R53.1 Weakness; I10 Essential (primary) hypertension; J44.9 Chronic obstructive pulmonary disease, unspecified; F03.90 Unspecified dementia, unspecified severity, without behavioral disturbance, psychotic disturbance, mood disturbance, and anxiety; R25.1 Tremor, unspecified; R41.3 Other amnesia; R19.7 Diarrhea, unspecified; F41.9 Anxiety disorder, unspecified; I48.91 Unspecified atrial fibrillation; I44.4 Left anterior fascicular block; M19.90 Unspecified osteoarthritis, unspecified site; R32 Unspecified urinary incontinence; J32.2 Chronic ethmoidal sinusitis; G93.89 Other specified disorders of brain; R63.0 Anorexia; Z68.25 Body mass index [BMI] 25.0-25.9, adult; I49.3 Ventricular premature depolarization; Z86.73 Personal history of transient ischemic attack (TIA), and cerebral infarction without residual deficits; Z87.891 Personal history of nicotine dependence; Z85.828 Personal history of other malignant neoplasm of skin; Z79.899 Other long term (current) drug therapy; Z88.8 Allergy status to other drugs, medicaments and biological substances; J30.81 Allergic rhinitis due to animal (cat) (dog) hair and dander; Z80.9 Family history of malignant neoplasm, unspecified
CPT/HCPCS: 96360; 96361; 96372 ×2; 99285; 36415; 95816; 93005; 97162; 97166; 83921; 85379; 80053; 84443; 82607; 82140; 82550; 82746; 84484; 85025; 85610; 85730; 81001; 80306; 87635; 71046; 70450; G0378 ×4; J1650 ×2

== ENCOUNTER 2022-08-22 14:30 | Inpatient (IN) | payer MEDICARE ==
[2022-08-22] MEDS ORDERED: SODIUM CHLORIDE 0.9% 1,000 ML IV STA (15:24)
--- NOTE | 2022-08-22 15:28 | ED ---
General Adult HPI - General Chief complaint: Altered Mental Status Stated complaint: failure to thrive Time Seen by Provider: 08/22/22 14:35 Source: patient, RN notes reviewed Mode of arrival: ambulatory Limitations: altered mental status - History of Present Illness Initial comments: Patient is a pleasant 76-year-old male presenting to the emergency department with concerns for general weakness. Patient lives on his own. Patient has had frequent falls recently and reportedly is unable to take care of himself. Patient is a very poor historian and offers very little history. - Related Data Home Medications Medication Instructions Recorded Confirmed Memantine [Namenda] 10 mg PO DAILY 10/16/21 10/16/21 risperiDONE [RisperDAL] 0.5 mg PO DAILY 10/16/21 10/16/21 Previous Rx's Medication Instructions Recorded lisinopriL [Zestril] 10 mg PO DAILY 30 Days #30 tab 01/20/19 Albuterol Inhaler [Ventolin Hfa 1 puff INHALATION RT-QID #1 gm 10/18/21 Inhaler] Aspirin 81 mg PO DAILY 10/18/21 Donepezil [Aricept] 10 mg PO HS #0 10/18/21 Metoprolol Tartrate [Lopressor] 50 mg PO BID #60 tab 10/18/21 Thiamine [Vitamin B-1] 100 mg PO DAILY #30 tab 10/18/21 Allergies Allergy/AdvReac Type Severity Reaction Status Date / Time animal dander Allergy Unknown Dyspnea Verified 10/16/21 14:41 cyanocobalamin (vitamin B12) AdvReac Injection, Verified 10/16/21 14:41 [place] weak and faint Review of Systems ROS Statement: Those systems with pertinent positive or pertinent negative responses have been documented in the HPI. ROS Other: All systems not noted in ROS Statement are negative. Limitations: ROS unobtainable due to patients medical condition Past Medical History Past Medical History: Cancer, CVA/TIA, Dementia, Hypertension, Memory Impairment Additional Past Medical History / Comment(s): HX OF SKIN CANCER, POSSIBLE CVA- NO WEAKNESS, STATES SOME MEMORY PROBLEMS AND DIFFICULTY FINDING THE RIGHT WORDS. HX OF HEMORRHOIDS AND GENITAL AND ANAL WARTS THAT HE HAD PROCEDURE FOR REMOVAL. , FREQUENT BOWEL MOVEMENTS AND DIARRHEA. History of Any Multi-Drug Resistant Organisms: None Reported Past Surgical History: Adenoidectomy, Tonsillectomy Additional Past Surgical History / Comment(s): CIRCUMCISION, COLONOSCOPY AND PROCEDURES FOR REMOVAL OF GENITAL AND ANAL WARTS. Past Anesthesia/Blood Transfusion Reactions: No Reported Reaction Past Psychological History: Anxiety Smoking Status: Unknown if ever smoked Past Alcohol Use History: Daily Past Drug Use History: None Reported - Past Family History Mother Family Medical History: Cancer Father Family Medical History: Cancer Sister(s) Family Medical History: Cancer General Exam Limitations: altered mental status General appearance: alert, in no apparent distress Head exam: Present: atraumatic, normocephalic Eye exam: Present: normal appearance, PERRL ENT exam: Present: normal oropharynx Neck exam: Present: normal inspection. Absent: tenderness, meningismus Respiratory exam: Present: normal lung sounds bilaterally Cardiovascular Exam: Present: regular rate, normal rhythm GI/Abdominal exam: Present: soft. Absent: tenderness Extremities exam: Present: normal inspection, full ROM. Absent: tenderness Back exam: Present: normal inspection Neurological exam: Present: alert, altered (Limited speech.). Absent: motor sensory deficit (Limited exam. Difficulty following commands.) Expanded Neurological exam: Present: protecting the airway Patient oriented to: Present: person. 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 Right bundle branch block. Nonspecific ST-T.), sinus rhythm Medical Decision Making - Medical Decision Making Patient reevaluated without significant change. Patient and family are updated. Case was discussed with Dr. Olson, who will admit For Dr. Lozano, who admits for Dr. Dasilva. - Lab Data Result diagrams: 08/22/22 15:27 08/22/22 15:27 Lab Results 08/22/22 08/22/22 08/22/22 Range/Units 15:27 15:27 15:27 WBC 11.0 H (3.8-10.6) k/uL RBC 5.06 (4.30-5.90) m/uL Hgb 14.8 (13.0-17.5) gm/dL Hct 45.9 (39.0-53.0) % MCV 90.7 (80.0-100.0) fL MCH 29.2 (25.0-35.0) pg MCHC 32.1 (31.0-37.0) g/dL RDW 14.2 (11.5-15.5) % Plt Count 123 L (150-450) k/uL MPV 9.6 Neutrophils % 87 % Lymphocytes % 4 % Monocytes % 7 % Eosinophils % 0 % Basophils % 0 % Neutrophils # 9.7 H (1.3-7.7) k/uL Lymphocytes # 0.5 L (1.0-4.8) k/uL Monocytes # 0.8 (0-1.0) k/uL Eosinophils # 0.0 (0-0.7) k/uL Basophils # 0.0 (0-0.2) k/uL PT 10.3 (9.0-12.0) sec INR 1.0 (<1.2) APTT 23.3 (22.0-30.0) sec Sodium (137-145) mmol/L Potassium (3.5-5.1) mmol/L Chloride (98-107) mmol/L Carbon Dioxide (22-30) mmol/L Anion Gap mmol/L BUN (9-20) mg/dL Creatinine (0.66-1.25) mg/dL Est GFR (CKD-EPI)AfAm (>60 ml/min/1.73 sqM) Est GFR (CKD-EPI)NonAf (>60 ml/min/1.73 sqM) Glucose (74-99) mg/dL Plasma Lactic Acid Simone (0.7-2.0) mmol/L Calcium (8.4-10.2) mg/dL Magnesium (1.6-2.3) mg/dL Total Bilirubin (0.2-1.3) mg/dL AST (17-59) U/L ALT (4-49) U/L Alkaline Phosphatase (38-126) U/L Troponin I (0.000-0.034) ng/mL Total Protein (6.3-8.2) g/dL Albumin (3.5-5.0) g/dL Urine Color Yellow Urine Appearance Clear (Clear) Urine pH 5.5 (5.0-8.0) Ur Specific [place] 1.024 (1.001-1.035) Urine Protein Trace H (Negative) Urine Glucose (UA) Negative (Negative) Urine Ketones 2+ H (Negative) Urine Blood Negative (Negative) Urine Nitrite Negative (Negative) Urine Bilirubin Negative (Negative) Urine Urobilinogen 2.0 (<2.0) mg/dL Ur Leukocyte Esterase Negative (Negative) Influenza Type A (PCR) (Not Detectd) Influenza Type B (PCR) (Not Detectd) RSV (PCR) (Not Detectd) SARS-CoV-2 (PCR) (Not Detectd) 08/22/22 08/22/22 08/22/22 Range/Units 15:27 15:27 15:27 WBC (3.8-10.6) k/uL RBC (4.30-5.90) m/uL Hgb (13.0-17.5) gm/dL Hct (39.0-53.0) % MCV (80.0-100.0) fL MCH (25.0-35.0) pg MCHC (31.0-37.0) g/dL RDW (11.5-15.5) % Plt Count (150-450) k/uL MPV Neutrophils % % Lymphocytes % % Monocytes % % Eosinophils % % Basophils % % Neutrophils # (1.3-7.7) k/uL Lymphocytes # (1.0-4.8) k/uL Monocytes # (0-1.0) k/uL Eosinophils # (0-0.7) k/uL Basophils # (0-0.2) k/uL PT (9.0-12.0) sec INR (<1.2) APTT (22.0-30.0) sec Sodium 140 (137-145) mmol/L Potassium 4.9 (3.5-5.1) mmol/L Chloride 104 (98-107) mmol/L Carbon Dioxide 25 (22-30) mmol/L Anion Gap 11 mmol/L BUN 22 H (9-20) mg/dL Creatinine 1.04 (0.66-1.25) mg/dL Est GFR (CKD-EPI)AfAm 80 (>60 ml/min/1.73 sqM) Est GFR (CKD-EPI)NonAf 69 (>60 ml/min/1.73 sqM) Glucose 93 (74-99) mg/dL Plasma Lactic Acid [place] 1.8 (0.7-2.0) mmol/L Calcium 9.4 (8.4-10.2) mg/dL Magnesium 1.9 (1.6-2.3) mg/dL Total Bilirubin 1.4 H (0.2-1.3) mg/dL AST 89 H (17-59) U/L ALT 43 (4-49) U/L Alkaline Phosphatase 162 H (38-126) U/L Troponin I <0.012 (0.000-0.034) ng/mL Total Protein 7.2 (6.3-8.2) g/dL Albumin 4.2 (3.5-5.0) g/dL Urine Color Urine Appearance (Clear) Urine pH (5.0-8.0) Ur Specific [place] (1.001-1.035) Urine Protein (Negative) Urine Glucose (UA) (Negative) Urine Ketones (Negative) Urine Blood (Negative) Urine Nitrite (Negative) Urine Bilirubin (Negative) Urine Urobilinogen (<2.0) mg/dL Ur Leukocyte Esterase (Negative) Influenza Type A (PCR) (Not Detectd) Influenza Type B (PCR) (Not Detectd) RSV (PCR) (Not Detectd) SARS-CoV-2 (PCR) (Not Detectd) 08/22/22 Range/Units 15:27 WBC (3.8-10.6) k/uL RBC (4.30-5.90) m/uL Hgb (13.0-17.5) gm/dL Hct (39.0-53.0) % MCV (80.0-100.0) fL MCH (25.0-35.0) pg MCHC (31.0-37.0) g/dL RDW (11.5-15.5) % Plt Count (150-450) k/uL MPV Neutrophils % % Lymphocytes % % Monocytes % % Eosinophils % % Basophils % % Neutrophils # (1.3-7.7) k/uL Lymphocytes # (1.0-4.8) k/uL Monocytes # (0-1.0) k/uL Eosinophils # (0-0.7) k/uL Basophils # (0-0.2) k/uL PT (9.0-12.0) sec INR (<1.2) APTT (22.0-30.0) sec Sodium (137-145) mmol/L Potassium (3.5-5.1) mmol/L Chloride (98-107) mmol/L Carbon Dioxide (22-30) mmol/L Anion Gap mmol/L BUN (9-20) mg/dL Creatinine (0.66-1.25) mg/dL Est GFR (CKD-EPI)AfAm (>60 ml/min/1.73 sqM) Est GFR (CKD-EPI)NonAf (>60 ml/min/1.73 sqM) Glucose (74-99) mg/dL Plasma Lactic Acid [place] (0.7-2.0) mmol/L Calcium (8.4-10.2) mg/dL Magnesium (1.6-2.3) mg/dL Total Bilirubin (0.2-1.3) mg/dL AST (17-59) U/L ALT (4-49) U/L Alkaline Phosphatase (38-126) U/L Troponin I (0.000-0.034) ng/mL Total Protein (6.3-8.2) g/dL Albumin (3.5-5.0) g/dL Urine Color Urine Appearance (Clear) Urine pH (5.0-8.0) Ur Specific [place] (1.001-1.035) Urine Protein (Negative) Urine Glucose (UA) (Negative) Urine Ketones (Negative) Urine Blood (Negative) Urine Nitrite (Negative) Urine Bilirubin (Negative) Urine Urobilinogen (<2.0) mg/dL Ur Leukocyte Esterase (Negative) Influenza Type A (PCR) Not Detected (Not Detectd) Influenza Type B (PCR) Not Detected (Not Detectd) RSV (PCR) Not Detected (Not Detectd) SARS-CoV-2 (PCR) Detected A (Not Detectd) - Radiology Data Radiology results: report reviewed (CT brain and cervical spine did not reveal acute abnormality.) Interpreted by me: Chest x-ray shows no acute process Disposition Clinical Impression: COVID-19, Weakness, Altered mental status Disposition: ADMITTED IP TO THIS HOSP Is patient prescribed a controlled substance at d/c from ED?: No Referrals: Toni Montanez MD [Primary Care Provider] - 1-2 days Time of Disposition: 17:37
[2022-08-22 15:48] LABS: Basophils % (A) 0 %; Eosinophils % (A) 0 %; HCT 45.9 % (39.0-53.0); HGB 14.8 gm/dL (13.0-17.5); Lymphocytes # (A) 0.5 k/uL (1.0-4.8); Lymphocytes % (A) 4 %; MCH 29.2 pg (25.0-35.0); MCHC 32.1 g/dL (31.0-37.0); MCV 90.7 fL (80.0-100.0); Mean Platelet Volume 9.6; Monocytes # (A) 0.8 k/uL (0-1.0); Monocytes % (A) 7 %; Neutrophils # (A) 9.7 k/uL (1.3-7.7); Neutrophils % (A) 87 %; Platelet Count 123 k/uL (150-450); RBC 5.06 m/uL (4.30-5.90); RDW 14.2 % (11.5-15.5)
[2022-08-22 15:49] LABS: Appearance,Urine Clear (Clear); Bilirubin,Urine Negative (Negative); Blood,Urine Negative (Negative); Color,Urine Yellow; Glucose,Urine (UA) Negative (Negative); Leukocyte Esterase,Urine Negative (Negative); Nitrite,Urine Negative (Negative); PH, Urine 5.5 (5.0-8.0); Protein,Urine Trace (Negative); Specific Gravity,Urine 1.024 (1.001-1.035)
[2022-08-22 15:56] LABS: Partial Thromboplastin Time 23.3 sec (22.0-30.0); Prothrombin Time 10.3 sec (9.0-12.0)
[2022-08-22 15:59] LABS: Ketones,Urine 2+ (Negative)
--- NOTE | 2022-08-22 16:06 | CT ---
EXAMINATION TYPE: CT brain david valdivia con DATE OF EXAM: 08/22/2022 COMPARISON: 03/15/2022 HISTORY: ams CT DLP: 1440.[address] of the brain was performed. The ventricles, basal cisterns and sulci overlying the cerebral convexities demonstrate mild enlargem ent. There is no evidence for intracranial hemorrhage or sulcal effacement. There is decreased attenuatio n about the periventricular white matter and deep white matter of both cerebral hemispheres, compatib le with chronic small vessel ischemia. No mass effects are seen. If symptoms persist consider MRI. Osseous calvarium is intact. IMPRESSION: 1. Age related atrophic and chronic small vessel ischemic change without acute intracranial process seen at this time. CT Cervical Spine: Unenhanced CT of the cervical spine was performed with bone and soft tissue window settings submitted . Coronal and sagittal reconstruction is obtained. There is normal alignment and prevertebral soft tissues. No evidence for acute cervical fracture . Scattered degenerative disc disease and spondylosis. Biapical scarring. IMPRESSION: 1. No evidence for acute fracture or subluxation of the cervical spine.
[2022-08-22 16:07] LABS: Albumin 4.2 g/dL (3.5-5.0); Calcium 9.4 mg/dL (8.4-10.2); Magnesium 1.9 mg/dL (1.6-2.3); Potassium 4.9 mmol/L (3.5-5.1); Total Bilirubin 1.4 mg/dL (0.2-1.3); Total Protein 7.2 g/dL (6.3-8.2)
--- NOTE | 2022-08-22 16:25 | XR ---
EXAMINATION TYPE: XR chest 2V DATE OF EXAM: 08/22/2022 COMPARISON: 10/16/2021 HISTORY: Shortness of breath TECHNIQUE: Frontal and lateral views of the chest are obtained. FINDINGS: Scattered senescent parenchymal changes noted. Hyperinflation compatible with COPD. No evidence for infiltrate. No evidence for atelectasis. Heart size is stable. Mediastinal structures are stable and grossly unremarkable. No evidence for hilar prominence. Degenerative changes dorsal spine. IMPRESSION: 1. No evidence for acute pulmonary disease.
[2022-08-22] MEDS ORDERED: ACETAMINOPHEN TAB 325 MG TAB PO PRN (17:37)
[2022-08-22] MEDS ORDERED: NALOXONE 0.4 MG/ML 1 ML VIAL IV PRN (17:37)
--- NOTE | 2022-08-22 18:13 | P.HPIM ---
History of Present Illness H&P Date: 08/22/22 Patient is a 76-year-old male with PMH of severe dementia, history of CVA, hypertension, chronic alcohol abuse that presents the ED brought in by his son altered mental status and failure to thrive. Patient is unable to provide any history therefore majority of information is obtained from the son and EMR. Son reports the patient was diagnosed with dementia 5 years ago. He has a history of heavy alcohol abuse for 16 years, quit 5 years ago when he was unable to obtain alcohol. Son reports that patient has been progressively getting worse since that time. Over the last few weeks, patient has been falling, has very poor appetite, has not eaten since Saturday. Patient is unable to stand, last time was 3 weeks ago. Patient has not been able to carry on a conversation over the past 3-4 months. The patient lives with his other son. The 2 sons have noted increased difficulty in taking care of their father. They are unable to provide 24-hour supervision. These symptoms prompted the son to bring the patient to the ED. In the ED, vital signs are stable. CBC showed a leukocytosis of 11, platelet count 123. Coagulation panel was within normal limits. CMP showed BUN of 22, total bilirubin 1.4, AST of 89, alkaline phosphatase of 162. Troponin was less than 0.012. Urinalysis showed trace protein and 2+ ketones. Influenza and RSV was negative. COVID-[address] head and C-spine showed age-related atrophic and chronic small vessel ischemic changes without acute process. Chest x-ray negative. Patient is admitted for failure to thrive and possible placement. Unable to obtain review of systems. General: Ill-appearing, no distress, appears at stated age Derm: warm, dry Head: atraumatic, normocephalic, symmetric Eyes: EOMI, no lid lag, anicteric sclera Mouth: no lip lesion, mucus membranes moist Cardiovascular: Tachycardic, no murmur Lungs: Decreased breath sounds bilateral, no rhonchi, no rales , no accessory muscle use Abdominal: soft, nontender to palpation, no guarding, no appreciable organomegaly Ext: no gross muscle atrophy, no edema, no contractures Neuro: Unable to assess Psych: Patient does not communicate and does not respond to verbal stimuli #Acute metabolic encephalopathy #Failure to thrive #COVID-19 #Elevated BUN #Ketonuria #Transaminitis #History of severe dementia #History of chronic alcohol abuse Chronic conditions: Hypertension, history of CVA? Patient presents with worsening confusion, frequent falls and decreased oral intake over the past 3 weeks. Chart review shows that he was admitted in October for similar complaints. He was diagnosed with COVID-19 at that time. EEG showed moderate to severe encephalopathy. Reversible labs including TSH, B12, ammonia and folic acid was within normal limits. He has also had an MRI done in 2018 which showed age-related atrophy and periventricular white matter ischemic changes. Neurology will be consulted for further recommendations. He'll be placed on fall precautions and neuro checks will be ordered. In the meantime, he will be continued on Aricept, Namenda and Risperdal. Thiamine will also be reordered. He is once again COVID-19 positive. He has no respiratory symptoms and does not require any supplemental oxygen. There is no specific treatment for his COVID- 19 positive results. Patient appears to be slightly dehydrated with elevated BUN and ketonuria. He'll be hydrated with normal saline at 75 mL per hour. His total bilirubin and AST along with alkaline phosphatase is mildly elevated. This could be related to dehydration. His abdominal exam is benign. CMP will be repeated tomorrow morning after hydration. DVT prophylaxis: Lovenox Discussed with: Patient, ED physician, son Anticipated discharge: 2-[address]: Placement A total of 35 minutes was spent on the care of this complex patient more than 50% of the time was spent in counseling and care coordination. Patient's sons is the decision maker. Son reports that he would like his father to be no code. Past Medical History Past Medical History: Cancer, CVA/TIA, Dementia, Hypertension, Memory Impairment Additional Past Medical History / Comment(s): HX OF SKIN CANCER, POSSIBLE CVA- NO WEAKNESS, STATES SOME MEMORY PROBLEMS AND DIFFICULTY FINDING THE RIGHT WORDS. HX OF HEMORRHOIDS AND GENITAL AND ANAL WARTS THAT HE HAD PROCEDURE FOR REMOVAL. , FREQUENT BOWEL MOVEMENTS AND DIARRHEA. History of Any Multi-Drug Resistant Organisms: None Reported Past Surgical History: Adenoidectomy, Tonsillectomy Additional Past Surgical History / Comment(s): CIRCUMCISION, COLONOSCOPY AND P ROCEDURES FOR REMOVAL OF GENITAL AND ANAL WARTS. Past Anesthesia/Blood Transfusion Reactions: No Reported Reaction Past Psychological History: Anxiety Smoking Status: Unknown if ever smoked Past Alcohol Use History: Daily Past Drug Use History: None Reported - Past Family History Mother Family Medical History: Cancer Father Family Medical History: Cancer Sister(s) Family Medical History: Cancer Medications and Allergies Home Medications Medication Instructions Recorded Confirmed Type lisinopriL [Zestril] 10 mg PO DAILY 30 Days #30 tab 01/20/19 10/16/21 Rx Memantine [Namenda] 10 mg PO DAILY 10/16/21 10/16/21 History risperiDONE [RisperDAL] 0.5 mg PO DAILY 10/16/21 10/16/21 History Albuterol Inhaler [Ventolin Hfa 1 puff INHALATION RT-QID #1 gm 10/18/21 Rx Inhaler] Aspirin 81 mg PO DAILY 10/18/21 Rx Donepezil [Aricept] 10 mg PO HS #0 10/18/21 10/16/21 Rx Metoprolol Tartrate [Lopressor] 50 mg PO BID #60 tab 10/18/21 Rx Thiamine [Vitamin B-1] 100 mg PO DAILY #30 tab 10/18/21 Rx Allergies Allergy/AdvReac Type Severity Reaction Status Date / Time animal dander Allergy Unknown Dyspnea Verified 10/16/21 14:41 cyanocobalamin (vitamin B12) AdvReac Injection, Verified 10/16/21 14:41 [place] weak and faint Physical Exam Vitals: Vital Signs Temp Pulse Pulse Resp BP Pulse Ox 08/22/22 15:20 83 08/22/22 14:55 97.8 F 82 20 110/66 96 Intake and Output 08/22/22 08/22/22 08/22/22 06:59 14:59 22:59 Other: Weight 81.647 kg Results CBC & Chem 7: 08/22/22 15:27 08/22/22 15:27 Labs: Abnormal Lab Results - Last 24 Hours (Table) 08/22/22 08/22/22 08/22/22 Range/Units 15:27 15:27 15:27 WBC 11.0 H (3.8-10.6) k/uL Plt Count 123 L (150-450) k/uL Neutrophils # 9.7 H (1.3-7.7) k/uL Lymphocytes # 0.5 L (1.0-4.8) k/uL BUN 22 H (9-20) mg/dL Total Bilirubin 1.4 H (0.2-1.3) mg/dL AST 89 H (17-59) U/L Alkaline Phosphatase 162 H (38-126) U/L Urine Protein Trace H (Negative) Urine Ketones 2+ H (Negative) SARS-CoV-2 (PCR) (Not Detectd) 08/22/22 Range/Units 15:27 WBC (3.8-10.6) k/uL Plt Count (150-450) k/uL Neutrophils # (1.3-7.7) k/uL Lymphocytes # (1.0-4.8) k/uL BUN (9-20) mg/dL Total Bilirubin (0.2-1.3) mg/dL AST (17-59) U/L Alkaline Phosphatase (38-126) U/L Urine Protein (Negative) Urine Ketones (Negative) SARS-CoV-2 (PCR) Detected A (Not Detectd)
[2022-08-22] MEDS ORDERED: ALBUTEROL NEBULIZED 2.5 MG/3 ML INHALATION SCH (20:00)
[2022-08-22] MEDS: SODIUM CHLORIDE 0.9% 1,000 ML IV SCH (21:36)
[2022-08-22] MEDS: DONEPEZIL 10 MG TAB PO SCH (21:36)
[2022-08-23] MEDS: MEMANTINE 10 MG TAB PO SCH ×2 (08:02→08:08)
[2022-08-23] MEDS: THIAMINE 100 MG TAB PO SCH ×2 (08:02→08:09)
[2022-08-23] MEDS: ENOXAPARIN 40 MG/0.4 ML SYRINGE SQ SCH (08:02)
[2022-08-23] MEDS: risperiDONE 0.5 MG TAB PO SCH ×2 (08:02→08:08)
[2022-08-23] MEDS: ALBUTEROL HFA INHALER INHALATION SCH ×4 (08:47→20:34)
[2022-08-23 10:14] LABS: Glucose,Whole Blood 73 mg/dL (70-110)
[2022-08-23 10:22] LABS: Glucose,Whole Blood 73 mg/dL (70-110)
--- NOTE | 2022-08-23 11:19 | P.CNNES ---
History of Present Illness Consult date: 08/23/22 Requesting physician: Vipul Milner Reason for Consult: altered mental status, COVID History of Present Illness: This is a 76-year-old gentleman with history of advanced dementia, previous history of COVID-19 infection in October 2021, hypertension, alcohol use and last drink was possibly 2019 who presented emergency department because of generalized weakness, frequent fall. Neurology is consulted for altered mental status. History is obtained from medical record since patient unable to provide history. I personally saw the patient in October 2021 and I felt his encephalopathy was due to his COVID-19 infection as well as his advanced dementia. According to the primary team the patient resides with his son and his son's unable to take care of him. It seems that his condition is worsening. During this hospital visit patient had COVID-19 positive again. According to the nurse patient was nonresponsive today and had some shaking that nonrhythmic of his extremities. In October patient had an EEG which the show suggestive of moderate to severe encephalopathy. There is no seizure or discharges. He had vitamin B12, TSH, folate and ammonia which were unremarkable. Please refer to the notes for further details. Some other workup during this hospital visit consisted alcohol Patient's afebrile. Calcium magnesium glucose creatinine and sodium are within normal limits AST is 89 ALT is 43. Urinalysis is negative for urinary tract infection SARS COV-2 PCR was detected Influenza A/B and RSV are not detected CT of the head is reported as age-related atrophy and chronic small vessel ischemic change without acute intracranial process seen at this time. I feel the patient's ventricles are dilated more than his generalized atrophy concerning for normal pressure hydrocephalus. Otherwise there is no acute subacute ischemia and there is no typical hemorrhage. CT cervical spine was reported as no evidence for acute fracture or subluxation of the cervical spine. Review of Systems Review of system is limited with apparent positive and negative as per HPI. Past Medical History Past Medical History: Cancer, CVA/TIA, Dementia, Hypertension, Memory Impairment Additional Past Medical History / Comment(s): HX OF SKIN CANCER, POSSIBLE CVA- NO WEAKNESS, STATES SOME MEMORY PROBLEMS AND DIFFICULTY FINDING THE RIGHT WORDS. HX OF HEMORRHOIDS AND GENITAL AND ANAL WARTS THAT HE HAD PROCEDURE FOR REMOVAL. , FREQUENT BOWEL MOVEMENTS AND DIARRHEA. History of Any Multi-Drug Resistant Organisms: None Reported Past Surgical History: Adenoidectomy, Tonsillectomy Additional Past Surgical History / Comment(s): CIRCUMCISION, COLONOSCOPY AND WI OCEDURES FOR REMOVAL OF GENITAL AND ANAL WARTS. Past Anesthesia/Blood Transfusion Reactions: No Reported Reaction Past Psychological History: Anxiety Smoking Status: Unknown if ever smoked Past Alcohol Use History: Daily Additional Past Alcohol Use History / Comment(s): SMOKED CIGARS FOR APPROX 30 YEARS. Past Drug Use History: None Reported - Past Family History Mother Family Medical History: Cancer Father Family Medical History: Cancer Sister(s) Family Medical History: Cancer Medications and Allergies Home Medications Medication Instructions Recorded Confirmed Type Memantine [Namenda] 10 mg PO DAILY 10/16/21 08/23/22 History risperiDONE [RisperDAL] 0.5 mg PO DAILY 10/16/21 08/23/22 History QUEtiapine [SEROquel] 25 mg PO HS 08/23/22 08/23/22 History traZODone HCL [Desyrel] 50 mg PO HS 08/23/22 08/23/22 History Allergies Allergy/AdvReac Type Severity Reaction Status Date / Time animal dander Allergy Unknown Dyspnea Verified 08/23/22 09:14 cyanocobalamin (vitamin B12) AdvReac Injection, Verified 08/23/22 09:14 [place] weak and faint Physical Examination - Vital Signs Vital Signs: Vital Signs Temp Pulse Pulse Pulse Resp BP BP 08/23/22 10:29 92 117/63 08/23/22 08:47 08/23/22 08:00 97.9 F 68 20 118/59 08/23/22 01:04 97.9 F 90 18 121/60 08/22/22 21:00 87 20 08/22/22 20:54 98.1 F 87 20 132/68 08/22/22 20:16 98.7 F 88 20 116/62 08/22/22 19:00 86 20 08/22/22 16:30 98.0 F 94 20 98/58 08/22/22 15:20 83 08/22/22 14:55 97.8 F 82 20 110/66 Pulse Ox 08/23/22 10:29 97 08/23/22 08:47 95 08/23/22 08:00 94 L 08/23/22 01:04 92 L 08/22/22 21:00 08/22/22 20:54 93 L 08/22/22 20:16 98 08/22/22 19:00 98 08/22/22 16:30 97 08/22/22 15:20 08/22/22 14:55 96 Intake and Output 08/22/22 08/23/22 08/23/22 22:59 06:59 14:59 Output Total 400 Balance -400 Output: Urine 400 Other: Voiding Method External Catheter External Catheter Weight 81.647 kg 82.5 kg GENERAL: The patient is laying in bed and does not appear in acute distress. CHEST: The heart rate is regular rate rhythm. No murmurs to auscultation. LUNG: Clear to auscultation bilaterally no wheezing noted throughout. Not labored breathing. ABDOMEN/GI: Bowel sounds present in all 4 quadrants. No tenderness to palpation throughout. NEUROLOGICAL: Limited because of his condition. Higher mental function: The patient is severely drowsy and would open his eye briefly to painful stimuli. Not verbally responding or following commands. Cranial nerves: The pupils are round, equal and reactive to light. NO facial weakness. Otherwise rest is limited. Motor: The strength is hard to assess because of cooperation. He was able to lift bilateral uppers above gravity with painful stimuli and localized in lowers as well. Normal tone and bulk. Has nonrhythmic tremors of uppers. Cerebellum: Unable to assess. Sensation: Localizes to painful stimuli. Reflexes (right/left):1+ thorughout Plantars are mute bilaterally. Results - Laboratory Findings CBC and BMP: 08/23/22 05:53 08/23/22 05:53 Abnormal Lab Findings: Abnormal Labs 08/22/22 08/22/22 08/22/22 15:27 15:27 15:27 WBC 11.0 H Plt Count 123 L Neutrophils # 9.7 H Lymphocytes # 0.5 L BUN 22 H Total Bilirubin 1.4 H AST 89 H Alkaline Phosphatase 162 H Urine Protein Trace H Urine Ketones 2+ H SARS-CoV-2 (PCR) 08/22/22 15:27 WBC Plt Count Neutrophils # Lymphocytes # BUN Total Bilirubin AST Alkaline Phosphatase Urine Protein Urine Ketones SARS-CoV-2 (PCR) Detected A Assessment and Plan Assessment: Altered mental status due to multifactorial: Acute COVID-19 infection on top of his advanced dementia Episode of nonrhythmic jerking of extremities and not verbally responsive: Clinically did not appear seizure and likely more due to his underlying encephalopathy due to underlying COVID-19 History of underlying advanced dementia, falls seems due to mulitifactorial but on imaging has normal pressure hydrocephalus. Also possible has component of dementia due to alcohol use Acute COVID-19 infection. History of COVI-19 in 10/2021 History of Alcohol use (last use was in 2019) Plan: I ordered STAT EEG to rule out seizure. I started the patient on Keppra 500mg IV every 12 hours as seizure prophylaxis. Ordered MRI Brain w/ and w/o. Ordered ammonia level. He currently is on his home Memantine 10mg daily. Recommend patient to follow-up with neurosurgeon as outpatient for consideration of MALTED MILK MIXER shunt for likely normal pressure hydrocephalus. Recommend large volume tap as outpatient and if there is improvement in memory and mobility then pursue with MALTED MILK MIXER shunt. Will defer the rest of medical management to primary team. The plan is discussed with primary team and his nurse. Thank you for the consultation. Time with Patient: Greater than 30
[2022-08-23 11:33] LABS: Basophils # (A) 0.04 X 10*3/uL (0.00-0.10); Basophils % (A) 0.3 %; Eosinophils # (A) 0.05 X 10*3/uL (0.04-0.35); Eosinophils % (A) 0.4 %; HCT 43.1 % (39.6-50.0); HGB 13.7 g/dL (13.0-17.0); Immature Grans, Automated 0.5 %; Lymphocytes # (A) 0.58 X 10*3/uL (0.90-5.00); Lymphocytes % (A) 4.9 %; MCH 29.5 pg (27.0-32.0); MCHC 31.8 g/dL (32.0-37.0); MCV 92.7 fL (80.0-97.0); Mean Platelet Volume 12.2 fL (9.5-12.2); Monocytes # (A) 0.86 X 10*3/uL (0.20-1.00); Monocytes % (A) 7.3 %; NRBC Per 100 WBC 0 /100 WBCS (0.0-0.0); Neutrophils # (A) 10.24 X 10*3/uL (1.80-7.70); Neutrophils % (A) 86.6 %; Platelet Count 133 X 10*3/uL (140-440); RBC 4.65 X 10*6/uL (4.40-5.60); RDW 14.9 % (11.5-14.5); WBC 11.83 X 10*3/uL (4.50-10.00)
[2022-08-23 12:15] LABS: African American GFR (CKD) 81.8 (60.0-200.0); Albumin 3.7 g/dL (3.8-4.9); Albumin/Globulin Ratio 1.81 (1.60-3.17); Anion Gap 18.6 mmol/L (10.00-18.00); BUN/Creat Ratio 20.78 Ratio (12.00-20.00); Blood Urea Nitrogen 21.2 mg/dL (9.0-27.0); Calcium 9.2 mg/dL (8.7-10.3); Carbon Dioxide 20.4 mmol/L (20.0-27.5); Globulin 2.1 g/dL (1.6-3.3); Non-African American GFR(CKD) 70.6 (60.0-200.0); Potassium 4.5 mmol/L (3.5-5.5); Total Bilirubin 0.7 mg/dL (0.30-1.20); Total Protein 5.8 g/dL (6.2-8.2)
--- NOTE | 2022-08-23 12:49 | P.PN ---
Subjective Progress Note Date: 08/23/22 Patient was seen and examined. A-team called this morning for apparent seizure- like activity. Patient's BP was 90s over 50s. His O2 saturation was in the desaturate to the mid 80s. Currently on 4 L nasal cannula. Patient is nonverbal. General: Ill-appearing, no distress, appears at stated age Derm: warm, dry Head: atraumatic, normocephalic, symmetric Eyes: EOMI, no lid lag, anicteric sclera Mouth: no lip lesion, mucus membranes moist Cardiovascular: Tachycardic, no murmur Lungs: Decreased breath sounds bilateral, no rhonchi, no rales , no accessory muscle use Abdominal: soft, nontender to palpation, no guarding, no appreciable organomegaly Ext: no gross muscle atrophy, no edema, resting tremors Neuro: Unable to assess Psych: Patient does not communicate and does not respond to verbal stimuli #Acute metabolic encephalopathy #Failure to thrive #Acute hypoxic respiratory failure #COVID-19 #Elevated BUN #Ketonuria #Transaminitis #History of severe dementia #History of chronic alcohol abuse Chronic conditions: Hypertension, history of CVA? Patient presents with worsening confusion, frequent falls and decreased oral intake over the past 3 weeks. Chart review shows that he was admitted in October for similar complaints. He was diagnosed with COVID-19 at that time. EEG showed moderate to severe encephalopathy. Reversible labs including TSH, B12, ammonia and folic acid was within normal limits. He has also had an MRI done in 2018 which showed age-related atrophy and periventricular white matter ischemic changes. Case was discussed with Dr. Connell plans for EEG, MRI brain, ammonia level. Empirically started on Keppra. Neurology on board. He'll be placed on fall precautions and neuro checks will be ordered. Continue Aricept, Namenda and Risperdal. Thiamine will also be reordered. He is once again COVID-19 positive. Currently on 4 L nasal cannula. He'll be started on Decadron. Start Rocephin and azithromycin for concerns of community acquired pneumonia. Obtain pro-calcitonin anti-inflammatory limits. Patient appears to be slightly dehydrated with elevated BUN and ketonuria. Switch IVF to D5 NS at 50 cc/hr. His AST along with alkaline phosphatase is mildly elevated. This could be related to dehydration. His abdominal exam is benign. CMP will be repeated tomorrow morning after hydration. Objective - Vital Signs Vital signs: Vital Signs Temp 97.9 F 08/23/22 08:00 Pulse 92 08/23/22 10:29 Resp 20 08/23/22 08:00 BP 117/63 08/23/22 10:29 Pulse Ox 97 08/23/22 10:29 FiO2 Intake & Output 08/22/22 08/23/22 08/23/22 18:59 06:59 18:59 Output Total 400 Balance -400 Weight 81.647 kg 82.5 kg Output: Urine 400 Other: Voiding Method External Catheter External Catheter - Labs CBC & Chem 7: 08/23/22 05:53 08/23/22 05:53 Labs: Abnormal Lab Results - Last 24 Hours (Table) 08/22/22 08/22/22 08/22/22 Range/Units 15:27 15:27 15:27 WBC 11.0 H (3.8-10.6) k/uL MCHC (32.0-37.0) g/dL RDW (11.5-14.5) % Plt Count 123 L (150-450) k/uL Immature Gran # (0.00-0.04) X 10*3/uL Neutrophils # 9.7 H (1.3-7.7) k/uL Lymphocytes # 0.5 L (1.0-4.8) k/uL Anion Gap (10.00-18.00) mmol/L BUN 22 H (9-20) mg/dL BUN/Creatinine Ratio (12.00-20.00) Ratio Glucose (70-110) mg/dL Total Bilirubin 1.4 H (0.2-1.3) mg/dL AST 89 H (17-59) U/L Alkaline Phosphatase 162 H (38-126) U/L Total Protein (6.2-8.2) g/dL Albumin (3.8-4.9) g/dL Urine Protein Trace H (Negative) Urine Ketones 2+ H (Negative) SARS-CoV-2 (PCR) (Not Detectd) 08/22/22 08/23/22 08/23/22 Range/Units 15:27 05:53 05:53 WBC 11.83 H (3.8-10.6) k/uL MCHC 31.8 L (32.0-37.0) g/dL RDW 14.9 H (11.5-14.5) % Plt Count 133 L (150-450) k/uL Immature Gran # 0.06 H (0.00-0.04) X 10*3/uL Neutrophils # 10.24 H (1.3-7.7) k/uL Lymphocytes # 0.58 L (1.0-4.8) k/uL Anion Gap 18.60 H (10.00-18.00) mmol/L BUN (9-20) mg/dL BUN/Creatinine Ratio 20.78 H (12.00-20.00) Ratio Glucose 56 L (70-110) mg/dL Total Bilirubin (0.2-1.3) mg/dL AST 90 H (17-59) U/L Alkaline Phosphatase 137 H (38-126) U/L Total Protein 5.8 L (6.2-8.2) g/dL Albumin 3.7 L (3.8-4.9) g/dL Urine Protein (Negative) Urine Ketones (Negative) SARS-CoV-2 (PCR) Detected A (Not Detectd)
[2022-08-23] MEDS: DEXAMETHASONE SOD PHOSPHATE 10 MG/ML 1 ML VIAL IVP SCH (13:08)
[2022-08-23] MEDS: DEXTROSE 5% IN WATER 1,000 ML IV SCH (13:09)
[2022-08-23] MEDS: SODIUM CHLORIDE 0.9% 1,000 ML IV SCH (13:10)
[2022-08-23] MEDS: levETIRAcetam IV 500 MG in SODIUM CHLORIDE 0.9% 100 ML IVPB SCH ×2 (13:11→20:45)
[2022-08-23 13:15] LABS: Glucose,Whole Blood 93 mg/dL (70-110)
[2022-08-23] MEDS: AZITHROMYCIN 500 MG in SODIUM CHLORIDE 0.9% 250 ML IVPB SCH (15:35)
--- NOTE | 2022-08-23 20:20 | EEG ---
ELECTROENCEPHALOGRAM REPORT CLINICAL HISTORY: This is a 76-year-old gentleman with recent COVID-19 infection, who presented because of worsening of altered mental status and body jerks. The video EEG is obtained to evaluate for seizure epileptiform activity. RELEVANT MEDICATION: The patient is not on any antiepileptic drugs. EEG TYPE: A routine 21-channel EEG is performed with video using the 10/20 electrode placement system. DESCRIPTION: The background consists of [id number] voltage of 4 to 4.5 hertz theta activity that is nonrhythmic and at times it is intermixed with delta activity. There is no physiological stage 2 sleep architecture. There is no focal slowing. Interictal and ictal: Near the entire study, the patient had nonrhythmic 6 hertz theta activity over the right temporal without any evolution. Clinically, the patient had continuous shaking of the right upper extremity as well as jaw. This EEG finding is synchronous with right movement. There is no seizure or epileptiform discharges noted. ACTIVATION PROCEDURE: Photic stimulation and hyperventilation are not performed because of the patient's acute COVID status. CLINICAL INTERPRETATION: This is an abnormal routine EEG. The background slowing is suggestive of moderate-to- severe encephalopathy. Otherwise, there is no focal slowing, epileptiform discharge, or seizure on the EEG. Clinical correlation is recommended. MMODL / IJN: [id number] / MTDD
[2022-08-23] MEDS: DONEPEZIL 10 MG TAB PO SCH (20:51)
[2022-08-24] MEDS: risperiDONE 0.5 MG TAB PO SCH (07:31)
[2022-08-24] MEDS: THIAMINE 100 MG TAB PO SCH (07:31)
[2022-08-24] MEDS: ENOXAPARIN 40 MG/0.4 ML SYRINGE SQ SCH (07:31)
[2022-08-24] MEDS: MEMANTINE 10 MG TAB PO SCH (07:31)
[2022-08-24] MEDS: DEXTROSE 5% IN WATER 1,000 ML IV SCH (07:39)
[2022-08-24] MEDS: ALBUTEROL HFA INHALER INHALATION SCH ×4 (07:51→20:12)
[2022-08-24 08:07] LABS: HCT 41.6 % (39.0-53.0); HGB 13.3 gm/dL (13.0-17.5); Hypochromasia Slight; MCH 29.5 pg (25.0-35.0); MCV 92.4 fL (80.0-100.0); Mean Platelet Volume 10.1; Platelet Count 118 k/uL (150-450); RDW 14.1 % (11.5-15.5); WBC 7.6 k/uL (3.8-10.6)
[2022-08-24 08:09] LABS: ALT 37 U/L (4-49); AST 74 U/L (17-59); African American GFR (CKD) >90 (>60 ml/min/1.73 sqM); Albumin 3.1 g/dL (3.5-5.0); Albumin/Globulin Ratio 1.3; Alkaline Phosphatase 124 U/L (38-126); Anion Gap 7 mmol/L; Blood Urea Nitrogen 25 mg/dL (9-20); Calcium 8.9 mg/dL (8.4-10.2); Carbon Dioxide 26 mmol/L (22-30); Chloride 107 mmol/L (98-107); Globulin 2.4 g/dL; Glucose 113 mg/dL (74-99); LDH 402 U/L (313-618); Non-African American GFR(CKD) 85 (>60 ml/min/1.73 sqM); Potassium 4.1 mmol/L (3.5-5.1); Sodium 140 mmol/L (137-145); Total Bilirubin 0.7 mg/dL (0.2-1.3); Total Protein 5.5 g/dL (6.3-8.2)
[2022-08-24] MEDS: AZITHROMYCIN 500 MG in SODIUM CHLORIDE 0.9% 250 ML IVPB SCH (08:10)
[2022-08-24] MEDS: DEXAMETHASONE SOD PHOSPHATE 10 MG/ML 1 ML VIAL IVP SCH (08:55)
[2022-08-24] MEDS: levETIRAcetam IV 500 MG in SODIUM CHLORIDE 0.9% 100 ML IVPB SCH ×2 (09:45→20:20)
--- NOTE | 2022-08-24 12:43 | P.PN ---
Subjective Progress Note Date: 08/24/22 The patient is seen at bedside and per his nurse he continues to be severely confused and not following commands. He continues to have tremors of uppers. Objective - Vital Signs Vital signs: Vital Signs Temp 98.8 F 08/24/22 08:00 Pulse 64 08/24/22 08:00 Resp 22 08/24/22 08:00 BP 119/63 08/24/22 08:00 Pulse Ox 96 08/24/22 08:00 FiO2 Intake & Output 08/23/22 08/24/22 08/24/22 18:59 06:59 18:59 Output Total 401 300 Balance -401 -300 Weight 80 kg Output: Urine 400 300 Stool 1 Other: Voiding Method External Catheter External Catheter External Catheter # Voids 1 2 # Bowel Movements 2 - Exam GENERAL: The patient is laying in bed and does not appear in acute distress. NEUROLOGICAL: Limited because of his condition. Higher mental function: The patient is severely drowsy and would open his eyes to voice. Not verbally responding or following commands. Cranial nerves: The pupils are round, equal and reactive to light. NO facial weakness. Otherwise rest is limited. Motor: The strength is hard to assess because of cooperation. He has some tremors at rest of uppers and are nonsynchronus. . Cerebellum: Unable to assess. Sensation: Localizes to painful stimuli. Reflexes (right/left):1+ thorughout Plantars are mute bilaterally. Some other workup during this hospital visit consisted alcohol Patient's afebrile. Calcium magnesium glucose creatinine and sodium are within normal limits AST is 89 ALT is 43. Ammonia <9 Urinalysis is negative for urinary tract infection SARS COV-2 PCR was detected Influenza A/B and RSV are not detected CT of the head is reported as age-related atrophy and chronic small vessel ischemic change without acute intracranial process seen at this time. I feel the patient's ventricles are dilated more than his generalized atrophy concernin g for normal pressure hydrocephalus. Otherwise there is no acute subacute ischemia and there is no typical hemorrhage. CT cervical spine was reported as no evidence for acute fracture or subluxation of the cervical spine. Routine EEG is abnormal. Tobacco slowing suggestive of moderate to severe en cephalopathy. Otherwise there is no focal slowing, epileptiform discharges or seizure on the EEG. - Labs CBC & Chem 7: 08/24/22 05:29 08/24/22 05:29 Labs: Abnormal Lab Results - Last 24 Hours (Table) 08/24/22 08/24/22 08/24/22 Range/Units 05:29 05:29 05:29 Plt Count 118 L (150-450) k/uL D-Dimer 0.77 H (<0.60) mg/L FEU BUN 25 H (9-20) mg/dL Glucose 113 H (74-99) mg/dL AST 74 H (17-59) U/L Total Protein 5.5 L (6.3-8.2) g/dL Albumin 3.1 L (3.5-5.0) g/dL Assessment and Plan Assessment: Altered mental status due to multifactorial: Acute COVID-19 infection on top of his advanced dementia Episode of nonrhythmic jerking of extremities and not verbally responsive: Clinically did not appear seizure and likely more due to his underlying encephalopathy due to underlying COVID-19 History of underlying advanced dementia, falls seems due to mulitifactorial but on imaging has normal pressure hydrocephalus. Also possible has component of dementia due to alcohol use Acute COVID-19 infection. History of COVI-19 in 10/2021 History of Alcohol use (last use was in 2019) Plan: Continue Keppra 500mg IV every 12 hours as seizure prophylaxis. Pending MRI Brain w/ and w/o. He currently is on his home Memantine 10mg daily. Recommend patient to follow-up with neurosurgeon as outpatient for consideration of FORESTRY FOREMAN shunt for likely normal pressure hydrocephalus. Recommend large volume tap as outpatient and if there is improvement in memory as well as mobility then pursue with FORESTRY FOREMAN shunt. Will defer the rest of medical management to primary team. Patient quality of life appears poor. The plan is discussed with primary team and his nurse. Time with Patient: Less than 30
--- NOTE | 2022-08-24 13:07 | P.PN ---
Subjective Progress Note Date: 08/24/22 Patient was seen and examined. No acute events overnight. He continues to be nonverbal. Clinically condition essentially unchanged from admission. Currently on 4 L nasal cannula. General: Ill-appearing, no distress, appears at stated age Derm: warm, dry Head: atraumatic, normocephalic, symmetric Eyes: EOMI, no lid lag, anicteric sclera Mouth: no lip lesion, mucus membranes moist Cardiovascular: Tachycardic, no murmur Lungs: Decreased breath sounds bilateral, no rhonchi, no rales , no accessory muscle use Abdominal: soft, nontender to palpation, no guarding, no appreciable organomegaly Ext: no gross muscle atrophy, no edema, resting tremors Neuro: Unable to assess Psych: Patient does not communicate and does not respond to verbal stimuli #Acute metabolic encephalopathy #Failure to thrive #Acute hypoxic respiratory failure #COVID-19 #Elevated BUN #Ketonuria #Transaminitis #History of severe dementia #History of chronic alcohol abuse Chronic conditions: Hypertension, history of CVA? Patient presents with worsening confusion, frequent falls and decreased oral intake over the past 3 weeks. Chart review shows that he was admitted in [facility] for similar complaints. He was diagnosed with COVID-19 at that time. EEG showed moderate to severe encephalopathy. Reversible labs including TSH, B12, ammonia and folic acid was within normal limits. He has also had an MRI done in 2018 which showed age-related atrophy and periventricular white matter ischemic changes. Repeat EEG shows severe encephalopathy, ammonia negative. MRI brain pending. Empirically started on Keppra. Neurology on board. He'll be placed on fall precautions and neuro checks will be ordered. Continue Aricept, Namenda and Risperdal. Thiamine will also be reordered. He is once again COVID-19 positive. Currently on 4 L nasal cannula. Continue Decadron. Continue Rocephin and azithromycin for concerns of community acquired pneumonia. Obtain pro-calcitonin anti-inflammatory limits. Patient appears to be slightly dehydrated with elevated BUN and ketonuria. Switch IVF to D5 NS at 50 cc/hr. His AST along with alkaline phosphatase is mildly elevated. This could be related to dehydration. His abdominal exam is benign. CMP will be repeated tomorrow morning after hydration. Palliative care consulted. Objective - Vital Signs Vital signs: Vital Signs Temp 98.8 08/24/22 08:00 Pulse 64 08/24/22 08:00 Resp 22 08/24/22 08:00 BP 119/63 08/24/22 08:00 Pulse Ox 96 08/24/22 08:00 FiO2 Intake & Output 08/23/22 08/24/22 08/24/22 18:59 06:59 18:59 Output Total 401 300 Balance -401 -300 Weight 80 kg Output: Urine 400 300 Stool 1 Other: Voiding Method External Catheter External Catheter External Catheter # Voids 1 2 # Bowel Movements 2 - Labs CBC & Chem 7: 08/24/22 05:29 08/24/22 05:29 Labs: Abnormal Lab Results - Last 24 Hours (Table) 08/24/22 08/24/22 08/24/22 Range/Units 05:29 05:29 05:29 Plt Count 118 L (150-450) k/uL D-Dimer 0.77 H (<0.60) mg/L FEU BUN 25 H (9-20) mg/dL Glucose 113 H (74-99) mg/dL AST 74 H (17-59) U/L Total Protein 5.5 L (6.3-8.2) g/dL Albumin 3.1 L (3.5-5.0) g/dL
--- NOTE | 2022-08-24 13:21 | MR ---
EXAMINATION TYPE: MR brain wo/w con DATE OF EXAM: 08/24/2022 1:00 PM COMPARISON: 07/09/2018 HISTORY: Altered mental status CONTRAST: Patient received 8 mL intravenous Gadavist gadolinium contrast. Multiplanar and multispin-echo imaging of the brain was performed . Pre and post contrast enhanced i mages are obtained. The ventricles, basal cisterns and sulci overlying the cerebral convexities are mildly enlarged. There is evidence of mild periventricular white matter ischemic demyelination. Remote deep white matter insults are also noted. No acute edema is seen on diffusion weighted imaging. There is no evidence for midline shift or mass effect. Acute intracranial hemorrhage or extra-axial collection is not evident. No enhancing lesions are seen. The paranasal sinuses and mastoid air cells are well-aerated. IMPRESSION: Age-related atrophic and chronic small vessel ischemic change. No acute intracranial process at this time. No enhancing lesions are seen.
[2022-08-24] MEDS: DONEPEZIL 10 MG TAB PO SCH (20:20)
[2022-08-25] MEDS: DEXTROSE 5% IN WATER 1,000 ML IV SCH ×2 (00:38→21:46)
[2022-08-25] MEDS: DEXAMETHASONE SOD PHOSPHATE 10 MG/ML 1 ML VIAL IVP SCH (07:58)
[2022-08-25] MEDS: ALBUTEROL HFA INHALER INHALATION SCH ×5 (08:23→20:21)
[2022-08-25] MEDS: THIAMINE 100 MG TAB PO SCH (09:29)
[2022-08-25] MEDS: risperiDONE 0.5 MG TAB PO SCH (09:29)
[2022-08-25] MEDS: ENOXAPARIN 40 MG/0.4 ML SYRINGE SQ SCH (09:29)
[2022-08-25] MEDS: MEMANTINE 10 MG TAB PO SCH (09:29)
[2022-08-25] MEDS: AZITHROMYCIN 500 MG in SODIUM CHLORIDE 0.9% 250 ML IVPB SCH (09:29)
[2022-08-25] MEDS: levETIRAcetam IV 500 MG in SODIUM CHLORIDE 0.9% 100 ML IVPB SCH ×2 (09:39→21:46)
--- NOTE | 2022-08-25 13:04 | P.PN ---
Subjective Progress Note Date: 08/25/22 Patient was seen and examined. No acute events overnight. He continues to be nonverbal. Clinically condition essentially unchanged from admission. Currently on 4 L nasal cannula. General: Ill-appearing, no distress, appears at stated age Derm: warm, dry Head: atraumatic, normocephalic, symmetric Eyes: EOMI, no lid lag, anicteric sclera Mouth: no lip lesion, mucus membranes moist Cardiovascular: Tachycardic, no murmur Lungs: Decreased breath sounds bilateral, no rhonchi, no rales , no accessory muscle use Abdominal: soft, nontender to palpation, no guarding, no appreciable organomegaly Ext: no gross muscle atrophy, no edema, resting tremors Neuro: Unable to assess Psych: Patient does not communicate and does not respond to verbal stimuli #Acute metabolic encephalopathy #Failure to thrive #Acute hypoxic respiratory failure #COVID-19 #Elevated BUN #Ketonuria #Transaminitis #History of severe dementia #History of chronic alcohol abuse Chronic conditions: Hypertension, history of CVA? Patient presents with worsening confusion, frequent falls and decreased oral intake over the past 3 weeks. Chart review shows that he was admitted in [facility] for similar complaints. He was diagnosed with COVID-19 at that time. EEG showed moderate to severe encephalopathy. Reversible labs including TSH, B12, ammonia and folic acid was within normal limits. He has also had an MRI done in 2018 which showed age-related atrophy and periventricular white matter ischemic changes. Repeat EEG shows severe encephalopathy, ammonia negative. MRI brain shows on acute findings. Empirically started on Keppra. Neurology on board. He'll be placed on fall precautions and neuro checks will be ordered. Continue Aricept, Namenda and Risperdal. Thiamine will also be reordered. Case discussed with Dr. Connell, recommends outpatient LP for possible NPH. He is once again COVID-19 positive. Currently on 4 L nasal cannula. Continue Decadron. Continue Rocephin and azithromycin for concerns of community acquired pneumonia. Obtain pro-calcitonin anti-inflammatory limits. Patient appears to be slightly dehydrated with elevated BUN and ketonuria. Switch IVF to D5 NS at 50 cc/hr. His AST along with alkaline phosphatase is mildly elevated. This could be related to dehydration. His abdominal exam is benign. CMP will be repeated tomorrow morning after hydration. Palliative care consulted. Patient will need placement. Objective - Vital Signs Vital signs: Vital Signs Temp 98.7 F 08/25/22 12:00 Pulse 48 L 08/25/22 12:00 Resp 18 08/25/22 12:00 BP 100/70 08/25/22 12:00 Pulse Ox 97 08/25/22 12:00 FiO2 Intake & Output 08/24/22 08/25/22 08/25/22 18:59 06:59 18:59 Intake Total 700 Output Total 350 151 Balance -350 549 Weight 68.5 kg Intake: Intake, IV Titration 700 Amount Dextrose 5% in Water 1, 600 000 ml @ 50 mls/hr IV . Q20H TEJAL Rx#:[id number] levETIRAcetam IV 500 mg 100 In Sodium Chloride 0.9% 100 ml @ 400 mls/hr IVPB Q12HR TEJAL Rx#:[id number] Output: Urine 350 150 Stool 1 Other: Voiding Method External Catheter External Catheter # Voids 3 2 # Bowel Movements 1 - Labs CBC & Chem 7: 08/24/22 05:29 08/24/22 05:29 Labs: Abnormal Lab Results - Last 24 Hours (Table) 08/24/22 Range/Units 05:29 Ferritin 373.0 H (22.0-322.0) ng/mL
--- NOTE | 2022-08-25 13:13 | P.PN ---
Subjective Progress Note Date: 08/25/22 The patient is seen at bedside and per nurse, no change in his condition. Objective - Vital Signs Vital signs: Vital Signs Temp 98.7 F 08/25/22 12:00 Pulse 48 L 08/25/22 12:00 Resp 18 08/25/22 12:00 BP 100/70 08/25/22 12:00 Pulse Ox 97 08/25/22 12:00 FiO2 Intake & Output 08/24/22 08/25/22 08/25/22 18:59 06:59 18:59 Intake Total 700 Output Total 350 151 Balance -350 549 Weight 68.5 kg Intake: Intake, IV Titration 700 Amount Dextrose 5% in Water 1, 600 000 ml @ 50 mls/hr IV . Q20H TEJAL Rx#:[id number] levETIRAcetam IV 500 mg 100 In Sodium Chloride 0.9% 100 ml @ 400 mls/hr IVPB Q12HR TEJAL Rx#:[id number] Output: Urine 350 150 Stool 1 Other: Voiding Method External Catheter External Catheter # Voids 3 2 # Bowel Movements 1 - Exam GENERAL: The patient is laying in bed and does not appear in acute distress. NEUROLOGICAL: Limited because of his condition. Higher mental function: The patient is severely drowsy and would open his eyes to voice. Not verbally responding or following commands. Cranial nerves: The pupils are round, equal and reactive to light. NO facial weakness. Otherwise rest is limited. Motor: The strength is hard to assess because of cooperation. He has some tremors at rest of uppers and are nonsynchronus. . Cerebellum: Unable to assess. Sensation: Localizes to painful stimuli. Reflexes (right/left):1+ thorughout Plantars are mute bilaterally. Some other workup during this hospital visit consisted alcohol Patient's afebrile. Calcium magnesium glucose creatinine and sodium are within normal limits AST is 89 ALT is 43. Ammonia <9 Urinalysis is negative for urinary tract infection SARS COV-2 PCR was detected Influenza A/B and RSV are not detected CT of the head is reported as age-related atrophy and chronic small vessel ischemic change without acute intracranial process seen at this time. I feel the patient's ventricles are dilated more than his generalized atrophy concerning for normal pressure hydrocephalus. Otherwise there is no acute subacute ischemia and there is no typical hemorrhage. CT cervical spine was reported as no evidence for acute fracture or subluxation of the cervical spine. Routine EEG is abnormal. Tobacco slowing suggestive of moderate to severe encephalopathy. Otherwise there is no focal slowing, epileptiform discharges or seizure on the EEG. MRI the brain is reported as age-related atrophic and chronic small vessel ischemic change. No acute intracranial process seen at this time. No enhancing lesion are seen. I personally reviewed the MRI and agree there is no acute or subacute ischemic stroke and there is no mass effect. - Labs CBC & Chem 7: 08/24/22 05:29 08/24/22 05:29 Labs: Abnormal Lab Results - Last 24 Hours (Table) 08/24/22 Range/Units 05:29 Ferritin 373.0 H (22.0-322.0) ng/mL Assessment and Plan Assessment: Altered mental status due to multifactorial: Acute COVID-19 infection on top of his advanced dementia Episode of nonrhythmic jerking of extremities and not verbally responsive: Clinically did not appear seizure and likely more due to his underlying encephalopathy due to underlying COVID-19 History of underlying advanced dementia, falls seems due to mulitifactorial but on imaging has possible component normal pressure hydrocephalus. Also possible has component of dementia due to alcohol use Acute COVID-19 infection. History of COVI-19 in 10/2021 History of Alcohol use (last use was in 2019) Plan: Continue Keppra 500mg IV every 12 hours as seizure prophylaxis. He currently is on his home Memantine 10mg daily. Recommend patient to follow-up with neurosurgeon as outpatient for consideration of RIVETER HELPER shunt for likely normal pressure hydrocephalus. Recommend large volume tap as outpatient and if there is improvement in memory as well as mobility then pursue with RIVETER HELPER shunt. Will defer the rest of medical management to primary team. Recommend patient to follow-up with neurologist as outpatient within 1-2 weeks. Patient quality of life appears poor. The plan is discussed with primary team and his nurse. Will follow-up with patient sporadically. Dr. Muller will start neurology service this Saturday. Time with Patient: Less than 30
[2022-08-25] MEDS: DONEPEZIL 10 MG TAB PO SCH (21:46)
[2022-08-26] MEDS: ALBUTEROL HFA INHALER INHALATION SCH ×4 (09:05→20:39)
[2022-08-26] MEDS: ENOXAPARIN 40 MG/0.4 ML SYRINGE SQ SCH (11:41)
[2022-08-26] MEDS: levETIRAcetam IV 500 MG in SODIUM CHLORIDE 0.9% 100 ML IVPB SCH ×2 (11:41→21:16)
[2022-08-26] MEDS: DEXAMETHASONE SOD PHOSPHATE 10 MG/ML 1 ML VIAL IVP SCH (11:42)
[2022-08-26] MEDS: MEMANTINE 10 MG TAB PO SCH (11:42)
[2022-08-26] MEDS: THIAMINE 100 MG TAB PO SCH (11:42)
[2022-08-26] MEDS: risperiDONE 0.5 MG TAB PO SCH (11:43)
--- NOTE | 2022-08-26 12:49 | P.PN ---
Subjective Progress Note Date: 08/26/22 Patient is a 76-year-old male with PMH of severe dementia, history of CVA, hypertension, chronic alcohol abuse that presents the ED brought in by his son altered mental status and failure to thrive. Patient is unable to provide any history therefore majority of information is obtained from the son and EMR. Son reports the patient was diagnosed with dementia 5 years ago. He has a history of heavy alcohol abuse for 16 years, quit 5 years ago when he was unable to obtain alcohol. Son reports that patient has been progressively getting worse since that time. Over the last few weeks, patient has been falling, has very poor appetite, has not eaten since Saturday. Patient is unable to stand, last ti me was 3 weeks ago. Patient has not been able to carry on a conversation over the past 3-4 months. The patient lives with his other son. The 2 sons have noted increased difficulty in taking care of their father. They are unable to provide 24-hour supervision. These symptoms prompted the son to bring the patient to the ED. In the ED, vital signs are stable. CBC showed a leukocytosis of 11, platelet count 123. Coagulation panel was within normal limits. CMP showed BUN of 22, total bilirubin 1.4, AST of 89, alkaline phosphatase of 162. Troponin was less than 0.012. Urinalysis showed trace protein and 2+ ketones. Influenza and RSV was negative. COVID-[address] head and C-spine showed age-related atrophic and chronic small vessel ischemic changes without acute process. Chest x-ray negative. Patient is admitted for failure to thrive and placement. Repeat EEG showed severe encephalopathy, ammonia negative. MRI brain showed on acute findings. He was empirically started on Keppra. Neurology recommended outpatient LP for possible NPH. Patient became hypoxic requiring 4L NC to maintain O2 saturation > 92%. He was started on Rocephin/Azithromycin and Decadron. Palliative care is consulted as he would benefit from palliative care/hospice. He is medically stable pending placement. Patient was seen and examined. No acute events overnight. He continues to be nonverbal. Clinically condition essentially unchanged from admission. Currently on 4 L nasal cannula. General: Ill-appearing, no distress, appears at stated age Derm: warm, dry Head: atraumatic, normocephalic, symmetric Eyes: EOMI, no lid lag, anicteric sclera Mouth: no lip lesion, mucus membranes moist Cardiovascular: Normal S1 S2, no murmur Lungs: Decreased breath sounds bilateral, no rhonchi, no rales , no accessory muscle use Abdominal: soft, nontender to palpation, no guarding, no appreciable organomegaly Ext: no gross muscle atrophy, no edema, resting tremors Neuro: Unable to assess Psych: Patient does not communicate and does not respond to verbal stimuli #Acute metabolic encephalopathy #Failure to thrive #Acute hypoxic respiratory failure #COVID-19 #Elevated BUN #Ketonuria #Transaminitis #History of severe dementia #History of chronic alcohol abuse Chronic conditions: Hypertension, history of CVA? Patient presents with worsening confusion, frequent falls and decreased oral intake over the past 3 weeks. Chart review shows that he was admitted in October for similar complaints. He was diagnosed with COVID-19 at that time. EEG showed moderate to severe encephalopathy. Reversible labs including TSH, B12, ammonia and folic acid was within normal limits. He has also had an MRI done in 2018 which showed age-related atrophy and periventricular white matter ischemic changes. Repeat EEG shows severe encephalopathy, ammonia negative. MRI brain shows on acute findings. Empirically started on Keppra. Neurology on board. He'll be placed on fall precautions and neuro checks will be ordered. Continue Aricept, Namenda and Risperdal. Thiamine will also be reordered. Case discussed with Dr. Connell, recommends outpatient LP for possible NPH. He is once again COVID-19 positive. Currently on 4 L nasal cannula. Continue Decadron. Continue Rocephin and azithromycin for concerns of community acquired pneumonia. Obtain pro-calcitonin anti-inflammatory limits. Patient appears to be slightly dehydrated with elevated BUN and ketonuria. Continue D5 NS at 50 cc/hr. His AST along with alkaline phosphatase is mildly elevated. This could be related to dehydration. His abdominal exam is benign. Palliative care consulted. Patient will need placement. Objective - Vital Signs Vital signs: Vital Signs Temp 96.1 F L 08/26/22 08:00 Pulse 56 L 08/26/22 08:00 Resp 18 08/26/22 00:00 BP 161/54 08/26/22 08:00 Pulse Ox 100 08/26/22 08:00 FiO2 Intake & Output 08/25/22 08/26/22 08/26/22 18:59 06:59 18:59 Other: Voiding Method External Catheter Diaper Incontinent Incontinent # Voids 4 2 - Labs CBC & Chem 7: 08/24/22 05:29 08/24/22 05:29
[2022-08-26] MEDS: DEXTROSE 5% IN WATER 1,000 ML IV SCH (16:51)
[2022-08-26] MEDS: DONEPEZIL 10 MG TAB PO SCH (21:16)
[2022-08-27] MEDS: ALBUTEROL HFA INHALER INHALATION SCH ×4 (09:37→20:20)
[2022-08-27] MEDS: levETIRAcetam IV 500 MG in SODIUM CHLORIDE 0.9% 100 ML IVPB SCH ×2 (10:08→21:44)
[2022-08-27] MEDS: DEXAMETHASONE SOD PHOSPHATE 10 MG/ML 1 ML VIAL IVP SCH (10:10)
[2022-08-27] MEDS: MEMANTINE 10 MG TAB PO SCH (10:11)
[2022-08-27] MEDS: THIAMINE 100 MG TAB PO SCH (10:11)
[2022-08-27] MEDS: ENOXAPARIN 40 MG/0.4 ML SYRINGE SQ SCH (10:11)
[2022-08-27] MEDS: risperiDONE 0.5 MG TAB PO SCH (10:14)
[2022-08-27] MEDS: DEXTROSE 5% IN WATER 1,000 ML IV SCH (16:15)
--- NOTE | 2022-08-27 17:56 | P.PN ---
Subjective Progress Note Date: 08/27/22 Patient initially seen by Dr. Rosas Connell. Please refer to his note for details. Patient is a 76-year-old male with recent a second time COVID infection, who has worsening altered mental status. Patient has jerking of extremities and head left temporal semi-arrhythmic but felt due to his sustained tremor. Patient is on Keppra. Dr. Connell recommended to repeat EEG if no improvement. He also felt there was some competent of NPH. Altered mental status due to multifactorial: Acute COVID-19 infection on top of his advanced dementia Episode of nonrhythmic jerking of extremities and not verbally responsive: Clinically did not appear seizure and likely more due to his underlying encephalopathy due to underlying COVID-19 History of underlying advanced dementia, falls seems due to mulitifactorial but on imaging has possible component normal pressure hydrocephalus. Also possible has component of dementia due to alcohol use Acute COVID-19 infection. History of COVI-19 in 10/2021 History of Alcohol use (last use was in 2019) Objective - Vital Signs Vital signs: Vital Signs Temp 96.8 F L 08/27/22 07:22 Pulse 70 08/27/22 13:55 Resp 17 08/27/22 13:55 BP 163/76 08/27/22 13:55 Pulse Ox 96 08/27/22 13:55 FiO2 Intake & Output 08/26/22 08/27/22 08/27/22 18:59 06:59 18:59 Output Total 420 Balance -420 Weight 73.5 kg Output: Urine 420 Other: Voiding Method Incontinent Incontinent Incontinent External Catheter External Catheter # Voids 2 # Bowel Movements 1 - Exam Patient is an elderly male, who appears somewhat delirious, encephalopathic, but also has underlying cognitive impairment. Patient has bilaterally positive palmomental reflex. He has positive visuospatial apraxia. Tone is mildly increased. Patient is slightly tremulous. Patient mumbles. However on giving painful stimuli, patient started yelling using a very clear foul language "M-". Patient withdraws to painful stimuli bilaterally. He could not tell me his age, or name. - Labs CBC & Chem 7: 08/24/22 05:29 08/24/22 05:29 Assessment and Plan Assessment: Altered mental status, likely due to metabolic encephalopathy. Acute COVID-19 infection on top of his advanced dementia Episode of nonrhythmic jerking of extremities and not verbally responsive: Clinically did not appear seizure and likely more due to his underlying encephalopathy due to underlying COVID-19 History of underlying advanced dementia, falls seems due to mulitifactorial but on imaging has possible component normal pressure hydrocephalus. Also possible has component of dementia due to alcohol use Acute COVID-19 infection. History of COVI-19 in 10/2021 History of Alcohol use (last use was in 2019) Plan: Continue Keppra 500mg IV every 12 hours as seizure prophylaxis. Would suggest rapidly weaning it off, once mentation improves. No evidence of clinical seizure. He currently is on his home Memantine 10mg daily. Dr. Connell has felt evidence of NPH. I reviewed CT and MRI, I agree with the findings. Possibility of some degree of NPH. Dr. Connell had recommended patient to follow-up with neurosurgeon as outpatient for consideration of ROTARY SHEAR OPERATOR shunt for likely normal pressure hydrocephalus. Recommend large volume tap as outpatient and if there is improvement in memory as well as mobility then pursue with ROTARY SHEAR OPERATOR shunt. Will defer the rest of medical management to primary team. Recommend patient to follow-up with neurologist as outpatient within 1-2 weeks.
--- NOTE | 2022-08-27 18:19 | P.PN ---
Subjective Progress Note Date: 08/27/22 Hospital course: Patient is a very pleasant 76-year-old male with past medical history of severe dementia, history of CVA, hypertension, and chronic alcohol abuse. He presented to the emergency department on 08/22/22 for concerns of worsening mental status and failure to thrive. Patient was brought in by his son and was unable to provide any history secondary to mentation therefore majority of information is obtained from the son and EMR. The son reported the patient was diagnosed with dementia 5 years ago and that he had a history of heavy alcohol abuse for 16 years but quit 5 years ago when he was no longer able to obtain alcohol due to his dementia the patient's son reported that since this time the patient's mentation has been progressively worsening. It is reported they became very concerned over the past few weeks as patient has had even further deterioration resulting in repeated falls, very poor appetite, and finally total loss of appetite with reported last time eating being on Saturday08/19/22. Family reports that patient had not been able to carry on a conversation in over 3-4 months and is alert to himself only. The patient currently lives with his son and due to the rapid deterioration of his condition, no one is available to provide 24-hour supervision in the home and he was brought into the emergency department for evaluation and possible placement. Upon arrival to the emergency department patient underwent full evaluation. CBC showed leukocytosis with WBC count of 11 and thrombocytopenia with platelet count 123. Coagulation panel was within normal limits. CMP showed BUN of 22, total bilirubin 1.4, AST of 89, alkaline phosphatase of 162. Troponin was less than 0.012. Urinalysis showed trace protein and 2+ ketones. Influenza and RSV was negative. COVID-[address] head and C-spine showed age-related atrophic and chronic small vessel ischemic changes but was negative for acute process. Chest x-ray negative. Patient was admitted under our services for failure to thrive and placement. He was evaluated by neurology and a repeat EEG was completed revealing severe encephalopathy. Ammonia levels were negative at less than 9. MRI brain done completed again negative for acute intercranial process. Per recommendations of neurology, patient was started on Keppra empirically and neurology recommending outpatient lumbar puncture for evaluation of possible NPH. On 08/25/22 patient having increased oxygenation needs and was started on Rocephin/azithromycin and Decadron. Palliative care was consulted for evaluatio n and further discussion with family regarding palliative care and/or hospice. At this time patient remains baseline mentation alert to self only and unable to follow commands. Physical exam: Patient was seen and examined. No acute events overnight. He continues to be nonverbal are very minimally verbal. Patient was able to state name but remained alert to self only which per family reports is baseline mentation over the past 4 months. Clinically condition essentially unchanged from admission. RN to wean patient off of oxygen as patient has been satting with SpO2 of 97%, RN instructed to wean patient off as he tolerates to maintain SpO2 greater than 90%. Medically, patient is stable for discharge to [facility] facility. RN reports patient's son called and was updated on patient's continued mentation and current plan. RN reports family wants to take patient home, however they are unable to provide 24-hour care. Patient will need to be transferred to facility. Case management notified. General: Ill-appearing, no distress, appears at stated age Derm: warm, dry Head: atraumatic, normocephalic, symmetric Eyes: EOMI, no lid lag, anicteric sclera Mouth: no lip lesion, mucus membranes moist Cardiovascular: Normal S1 S2, no murmur Lungs: Decreased breath sounds bilateral, no rhonchi, no rales , no accessory muscle use Abdominal: soft, nontender to palpation, no guarding, no appreciable organomegaly Ext: no gross muscle atrophy, no edema, resting tremors Neuro: Alert to self only. Garbled speech with occasional comprehensible words. Psych: Patient does not communicate and does not respond to verbal stimuli but does respond to painful/tactile stimuli and was able to state name today. Assessment and plan of care: Acute metabolic encephalopathy Failure to thrive Acute hypoxic respiratory failure COVID-19 Elevated BUN Ketonuria Transaminitis History of severe dementia History of chronic alcohol abuse Chronic conditions: Hypertension, history of CVA Patient presents with worsening confusion, frequent falls and decreased oral int henrry over the past 3 weeks. Chart review shows that he was admitted in October for similar complaints. He was diagnosed with COVID-19 at that time. EEG showed moderate to severe encephalopathy. Reversible labs including TSH, B12, ammonia and folic acid was within normal limits. He has also had an MRI done in 2018 which showed age-related atrophy and periventricular white matter ischemic changes. Repeat EEG shows severe encephalopathy, ammonia negative. MRI brain shows on acute findings. Empirically started on Keppra. Neurology on board. Patient remains on fall precautions and neuro checks. Continue Aricept, Namenda and Risperdal. Thiamine will also be reordered. Case discussed with Dr. Connell, recommends outpatient LP for possible NPH. Patient is once again COVID-19 positive. Currently on 4 L nasal cannula. Completed 5 day course of Rocephin and Decadron and 3 day course of azithromycin. RN to wean patient off of oxygen as he tolerates. Patient appears to be slightly dehydrated with elevated BUN and ketonuria. Continue D5 NS at 50 cc/hr and we will repeat BMP with morning labs. Patient's liver enzymes, AST along with alkaline phosphatase are mildly elevated. This could be related to dehydration or chronic alcohol abuse. His abdominal exam is benign. We will provide patient with gentle IV fluid hydration and continue to monitor with repeat a.m. labs. Palliative care consulted. Patient will need placement. CODE STATUS: DO NOT RESUSCITATE/DO NOT INTUBATE DVT prophylaxis: Lovenox Discussed with: RN, RN reports just getting off of phone with patient's son and giving him full update. Anticipated discharge date: Clinical course to determine. Anticipated discharge place: Palliative care consulted as patient will need placement. A total of 33 minutes was spent on the care of this complex patient more than 50% of the time was spent in counseling and care coordination. Yonas Atkinson NP rendered care for this patient independently, reviewed the findings and plan as documented in the note above. I did not physically speak with or examine the patient on this date. Objective - Vital Signs Vital signs: Vital Signs Temp 96.8 F L 08/27/22 07:22 Pulse 73 08/27/22 07:22 Resp 15 08/27/22 07:22 BP 139/77 08/27/22 07:22 Pulse Ox 95 08/27/22 07:22 FiO2 Intake & Output 08/26/22 08/27/22 08/27/22 18:59 06:59 18:59 Weight 73.5 kg Other: Voiding Method Incontinent Incontinent External Catheter # Voids 2 # Bowel Movements 1 - Labs CBC & Chem 7: 08/28/22 04:36 08/28/22 04:36
[2022-08-27] MEDS: DONEPEZIL 10 MG TAB PO SCH (21:44)
[2022-08-28] MEDS: ALBUTEROL HFA INHALER INHALATION SCH ×4 (08:22→20:45)
[2022-08-28] MEDS: MEMANTINE 10 MG TAB PO SCH (08:24)
[2022-08-28] MEDS: ENOXAPARIN 40 MG/0.4 ML SYRINGE SQ SCH (08:24)
[2022-08-28] MEDS: THIAMINE 100 MG TAB PO SCH (08:25)
[2022-08-28] MEDS: risperiDONE 0.5 MG TAB PO SCH (08:25)
[2022-08-28] MEDS: DEXTROSE 5% IN WATER 1,000 ML IV SCH ×2 (08:26→17:42)
[2022-08-28] MEDS: levETIRAcetam IV 500 MG in SODIUM CHLORIDE 0.9% 100 ML IVPB SCH ×2 (08:27→21:44)
[2022-08-28 09:04] LABS: HCT 42.1 % (39.6-50.0); HGB 13.6 g/dL (13.0-17.0); MCH 28.3 pg (27.0-32.0); MCHC 32.3 g/dL (32.0-37.0); MCV 87.5 fL (80.0-97.0); Mean Platelet Volume 11.4 fL (9.5-12.2); NRBC Per 100 WBC 0 /100 WBCS (0.0-0.0); Platelet Count 166 X 10*3/uL (140-440); RBC 4.81 X 10*6/uL (4.40-5.60); RDW 13.7 % (11.5-14.5); WBC 11.37 X 10*3/uL (4.50-10.00)
[2022-08-28 09:12] LABS: African American GFR (CKD) 99.9 (60.0-200.0); Albumin 3.1 g/dL (3.8-4.9); Albumin/Globulin Ratio 1.63 (1.60-3.17); Anion Gap 6.5 mmol/L (10.00-18.00); BUN/Creat Ratio 20.13 Ratio (12.00-20.00); Blood Urea Nitrogen 16.1 mg/dL (9.0-27.0); Calcium 8.8 mg/dL (8.7-10.3); Carbon Dioxide 31.5 mmol/L (20.0-27.5); Globulin 1.9 g/dL (1.6-3.3); Non-African American GFR(CKD) 86.2 (60.0-200.0); Potassium 3.7 mmol/L (3.5-5.5); Total Bilirubin 0.4 mg/dL (0.30-1.20)
--- NOTE | 2022-08-28 12:36 | P.CONS ---
History of Present Illness - Reason for Consult Consult date: 08/28/22 Goals of care Requesting physician: Stefanie Veras - Chief Complaint AMS - History of Present Illness Patient is a 76-year-old male with past medical history of severe dementia, history of CVA, hypertension, and chronic alcohol abuse. He presented to the emergency department on 08/22/22 for concerns of worsening mental status and failure to thrive. Patient was brought in by his son and was unable to provide any history secondary to mentation therefore majority of information is obtained from the son and EMR. The son reported the patient was diagnosed with dementia 5 years ago and that he had a history of heavy alcohol abuse for 16 years but quit 5 years ago when he was no longer able to obtain alcohol due to his dementia the patient's son reported that since this time the patient's mentation has been progressively worsening. It is reported they became very concerned over the past few weeks as patient has had even further deterioration resulting in repeated falls, very poor appetite, and finally total loss of appetite with reported last time eating being on Saturday08/19/22. Family reports that patient had not been able to carry on a conversation in over 3-4 months and is alert to himself only. The patient currently lives with his son and due to the rapid deterioration of his condition, no one is available to provide 24-hour supervision in the home and he was brought into the emergency department for evaluation and possible placement. Upon arrival to the emergency department patient underwent full evaluation. CBC showed leukocytosis with WBC count of 11 and thrombocytopenia with platelet count 123. Coagulation panel was within normal limits. CMP showed BUN of 22, total bilirubin 1.4, AST of 89, alkaline phosphatase of 162. Troponin was less than 0.012. Urinalysis showed trace protein and 2+ ketones. Influenza and RSV was negative. COVID-[address] head and C-spine showed age-related atrophic and chronic small vessel ischemic changes but was negative for acute process. Chest x-ray negative. Patient was admitted under our services for failure to thrive and placement. He was evaluated by neurology and a repeat EEG was completed revealing severe encephalopathy. Ammonia levels were negative at less than 9. MRI brain done completed again negative for acute intercranial process. Per recommendations of neurology, patient was started on Keppra empirically and neurology recommending outpatient lumbar puncture for evaluation of possible NPH. On 08/25/22 patient having increased oxygenation needs and was started on Rocephin/azithromycin and Decadron. At this time patient remains baseline mentation alert to self only and unable to follow commands. Review of Systems Constitutional: Reports as per HPI Past Medical History Past Medical History: Cancer, CVA/TIA, Dementia, Hypertension, Memory Impairment Additional Past Medical History / Comment(s): HX OF SKIN CANCER, POSSIBLE CVA- NO WEAKNESS, STATES SOME MEMORY PROBLEMS AND DIFFICULTY FINDING THE RIGHT WORDS. HX OF HEMORRHOIDS AND GENITAL AND ANAL WARTS THAT HE HAD PROCEDURE FOR REMOVAL. , FREQUENT BOWEL MOVEMENTS AND DIARRHEA. History of Any Multi-Drug Resistant Organisms: None Reported Past Surgical History: Adenoidectomy, Tonsillectomy Additional Past Surgical History / Comment(s): CIRCUMCISION, COLONOSCOPY AND PROCEDURES FOR REMOVAL OF GENITAL AND ANAL WARTS. Past Anesthesia/Blood Transfusion Reactions: No Reported Reaction Past Psychological History: Anxiety Smoking Status: Unknown if ever smoked Past Alcohol Use History: Daily Additional Past Alcohol Use History / Comment(s): SMOKED CIGARS FOR APPROX 30 YEARS. Past Drug Use History: None Reported - Past Family History Mother Family Medical History: Cancer Father Family Medical History: Cancer Sister(s) Family Medical History: Cancer Medications and Allergies Home Medications Medication Instructions Recorded Confirmed Type Memantine [Namenda] 10 mg PO DAILY 10/16/21 08/23/22 History risperiDONE [RisperDAL] 0.5 mg PO DAILY 10/16/21 08/23/22 History QUEtiapine [SEROquel] 25 mg PO HS 08/23/22 08/23/22 History traZODone HCL [Desyrel] 50 mg PO HS 08/23/22 08/23/22 History Allergies Allergy/AdvReac Type Severity Reaction Status Date / Time animal dander Allergy Unknown Dyspnea Verified 08/23/22 09:14 cyanocobalamin (vitamin B12) AdvReac Injection, Verified 08/23/22 09:14 [place] weak and faint Physical Exam Vitals: Vital Signs Temp Pulse Pulse Resp BP Pulse Ox 08/28/22 07:41 96.1 F L 53 L 15 160/76 98 08/28/22 02:25 97.4 F L 55 L 20 186/88 99 08/27/22 21:44 83 55 L 20 08/27/22 19:18 97.4 F L 58 L 18 162/81 96 08/27/22 13:55 70 17 163/76 96 Intake and Output 08/27/22 08/28/22 08/28/22 22:59 06:59 14:59 Output Total 601 Balance -601 Output: Urine 600 Stool 1 Other: Voiding Method Incontinent Incontinent External Catheter External Catheter # Voids 3 # Bowel Movements 2 Weight 79.5 kg General:No acute distress. Chronically ill appearing HEENT: Head is atraumatic, normocephalic. CV: Heart irregular in rate and rhythm positive S1 and S2. Lungs: Diminished bases bilaterally. Respirations even and nonlabored. Abdomen/GI: Soft.No guarding, rigidity, or abdominal tenderness. : No suprapubic tenderness. Condom catheter in place draining clear yellow urine Musculoskeletal/ Extremities: MEAD, no gross muscle atrophy, + generalized weakness Skin: Warm and dry Neurologic: Awake, alert and oriented to person only. Results CBC & Chem 7: 08/28/22 04:36 08/28/22 04:36 Labs: Abnormal Lab Results - Last 24 Hours (Table) 08/28/22 08/28/22 Range/Units 04:36 04:36 WBC 11.37 H (4.50-10.00) X 10*3/uL Carbon Dioxide 31.5 H (20.0-27.5) mmol/L Anion Gap 6.50 L (10.00-18.00) mmol/L BUN/Creatinine Ratio 20.13 H (12.00-20.00) Ratio ALT 73 H (10-49) U/L Alkaline Phosphatase 149 H (41-126) U/L Total Protein 5.0 L (6.2-8.2) g/dL Albumin 3.1 L (3.8-4.9) g/dL Chest x-ray: report reviewed CT Scan - head: report reviewed MRI - head: report reviewed Assessment and Plan Assessment: Social * Occupation - Retired * Marital status - * Children/grandchildren - 2 adult sons, 1 adult daughter * Residence - House * Who do you reside with - With sonJeison * ETOH - History of ETOH abuse, quit in 2019 * Tobacco - No * Illicit drugs - No Spiritual/Cultural * A spiritual person - No * Voodoo - N/A Functional Assessment * Able to walk independently - No * Assistive devices - No * Able to use the bathroom independently - No * Continent - No, wears depends * Require assistance bathing- Yes * Able to feed self - No * Who prepares meals - Son * Able to clean house/do laundry - NO * Transportation - Son * Able to shop - No * Who manages medications -Son * Who manages finances - Son Psychological/Emotional * Dementia present - Yes, Severe advanced dementia * Insight and judgment - Not intact * Depression - VESTA * Suicidal thoughts - VESTA * Good support system - Yes, family * Patients goals - Comfort * Frequent hospitalizations - No Symptoms * Pain - No, continue Tylenol prn * Fatigue - Yes, generalized weakness and fatigue, continue PT/OT * SOB - None at rest, on 4L NC, continue albuterol * Insomnia - No * N/V - No * Anxiety - No * Depression -No * Confusion - Yes, A&O to person only, which is his baseline. Continue thiamine, Aricept, Namenda and Risperdal * Agitation - No * Hallucinations - No * Appetite/weight loss - + loss of appetite, with significant weight loss. * Dysphagia - Severe dysphagia, PROCESS TECHNICIAN following and recommend NPO * Constipation - LBM 08/28 * Incontinence - Yes, has condom catheter on * Itch - No * Cough - Yes Plan: Summary/Goals - The patient is in bed and receiving a bed bath. He is able to talk, but word searches, gets frustrated, then given up. He is oriented to person only. He does not follow direction very well. Attempted to call his son, Jeison, who is currently working. Spoke with his other son, Arthur, via telephone because of COVID restrictions. Arthur states that he has had conversations with his father in the past. He would not want to live this way. Arthur feels he has no quality of life. His father lives at his brother Jeison's house. Jeison has to work 60 hours per week and has to leave his dad home alone. His dad is not able to care for himself anymore and has had frequent falls. The patient has had a rapid physical and mental decline over the last 6 months. He is extremely weak and does not eat much. Arthur was informed that he has failed his swallow evaluation with all consistencies and is silently aspirating. Arthur was also informed that feeding tubes are not recommended on people with advanced dementia. Arthur was updated regarding the Neurologist's recommendations which involve a large volume tap for his normal pressure hydrocephalus, and then monitor for improvements in his mentation. If the patient were to improve with the tap, the would then recommend a SHEET TURNER shunt. Arthur states that his father would not want surgery. He would like to talk with his brother before making any decisions, however voiced an interest in hospice. Information regarding hospice philosophies and services provided. The patient being home alone the majority of the day is not the ideal situation for hospice. The [facility] may be a better option. A consult was placed for an informational meeting. He stated he would talk to his brother so they could both be present for the meeting. Recommendations - [facility] informational visit Advanced Directives - Yes, on file Code Status - DNR Thank you for this consultation Talia López [facility] Palliative Care [facility] [id number] Email: [email or web address] Time with Patient: Greater than 30
--- NOTE | 2022-08-28 17:34 | P.PN ---
Subjective Progress Note Date: 08/28/22 Hospital course: Patient is a very pleasant 76-year-old male with past medical history of severe dementia, history of CVA, hypertension, and chronic alcohol abuse. He presented to the emergency department on 08/22/22 for concerns of worsening mental status and failure to thrive. Patient was brought in by his son and was unable to provide any history secondary to mentation therefore majority of information is obtained from the son and EMR. The son reported the patient was diagnosed with dementia 5 years ago and that he had a history of heavy alcohol abuse for 16 years but quit 5 years ago when he was no longer able to obtain alcohol due to his dementia the patient's son reported that since this time the patient's mentation has been progressively worsening. It is reported they became very concerned over the past few weeks as patient has had even further deterioration resulting in repeated falls, very poor appetite, and finally total loss of appet ite with reported last time eating being on Saturday08/19/22. Family reports that patient had not been able to carry on a conversation in over 3-4 months and is alert to himself only. The patient currently lives with his son and due to the rapid deterioration of his condition, no one is available to provide 24-hour supervision in the home and he was brought into the emergency department for evaluation and possible placement. Upon arrival to the emergency department patient underwent full evaluation. CBC showed leukocytosis with WBC count of 11 and thrombocytopenia with platelet count 123. Coagulation panel was within normal limits. CMP showed BUN of 22, total bilirubin 1.4, AST of 89, alkaline phosphatase of 162. Troponin was less than 0.012. Urinalysis showed trace protein and 2+ ketones. Influenza and RSV was negative. COVID-[address] head and C-spine showed age-related atrophic and chronic small vessel ischemic changes but was negative for acute process. Chest x-ray negative. Patient was admitted under our services for failure to thrive and placement. He was evaluated by neurology and a repeat EEG was completed revealing severe encephalopathy. Ammonia levels were negative at less than 9. MRI brain done completed again negative for acute intercranial process. Per recommendations of neurology, patient was started on Keppra empirically and neurology recommending outpatient lumbar puncture for evaluation of possible NPH. On 08/25/22 patient having increased oxygenation needs and was started on Rocephin/azithromycin and Decadron. Palliative care was consulted for evaluation and further discussion with family regarding palliative care and/or hospice. At this time patient remains baseline mentation alert to self only and unable to follow commands. Physical exam: Patient was seen and examined. No acute events overnight. He continues to be minimally verbal and baseline mentation alert to self only and unable to follow commands. He remains on 4 L O2 via nasal cannula. Morning labs reviewed revealing further elevation of BUN 31.5 and further elevation of liver enzymes ALT 73 and alkaline phosphatase of 149, IV fluids increased at this time. Patient continues to have poor appetite. Has a documented urinary output of 1020 mL over the past 24 hours. Palliative care meeting with patient's family later today to discuss palliative versus hospice treatment. General: Ill-appearing, no distress, appears at stated age Derm: warm, dry Head: atraumatic, normocephalic, symmetric Eyes: EOMI, no lid lag, anicteric sclera Mouth: no lip lesion, mucus membranes moist Cardiovascular: Normal S1 S2, no murmur Lungs: Decreased breath sounds bilateral, no rhonchi, no rales , no accessory muscle use Abdominal: soft, nontender to palpation, no guarding, no appreciable organomegaly Ext: no gross muscle atrophy, no edema, resting tremors Neuro: Alert to self only. Garbled speech with occasional comprehensible words unable to follow commands. Psych: Patient does not communicate and does not respond to verbal stimuli but does respond to painful/tactile stimuli and was able to state name today. Assessment and plan of care: Acute metabolic encephalopathy Failure to thrive Acute hypoxic respiratory failure COVID-19 infection Elevated BUN, prerenal azotemia Ketonuria Transaminitis History of severe dementia History of chronic alcohol abuse Chronic conditions: Hypertension, history of CVA Patient presents with worsening confusion, frequent falls and decreased oral intake over the past 3 weeks. Chart review shows that he was admitted in October for similar complaints. He was diagnosed with COVID-19 at that time. EEG showed moderate to severe encephalopathy. Reversible labs including TSH, B12, ammonia and folic acid was within normal limits. He has also had an MRI done in 2018 which showed age-related atrophy and periventricular white matter ischemic changes. Repeat EEG shows severe encephalopathy, ammonia negative. MRI brain shows on acute findings. Empirically started on Keppra. Neurology on board. Patient remains on fall precautions and neuro checks. Continue Aricept, Namenda, Risperdal and Thiamine Case discussed with Dr. Connell, recommends outpatient LP for possible NPH. Patient is once again COVID-19 positive. Currently on 4 L nasal cannula. Completed 5 day course of Rocephin and Decadron and 3 day course of azithromycin. RN to wean patient off of oxygen as he tolerates. Patient continues with poor appetite and slightly dehydrated with elevated BUN and ketonuria. We will increase D5 NS to 100 cc/hr and we will repeat BMP with morning labs. Patient's liver enzymes remain elevated with AST of 73 and ALT of 149. This could be related to dehydration or chronic alcohol abuse. His abdominal exam is benign. We increased IV fluid hydration and will continue to monitor with repeat a.m. labs. Palliative care consulted. Patient will need placement. CODE STATUS: DO NOT RESUSCITATE/DO NOT INTUBATE DVT prophylaxis: Lovenox Discussed with: RN, RN reports just getting off of phone with patient's son and giving him full update. Anticipated discharge date: Clinical course to determine. Anticipated discharge place: Palliative care consulted as patient will need placement, possible hospice. A total of 33 minutes was spent on the care of this complex patient more than 50% of the time was spent in counseling and care coordination. Yonas Atkinson NP rendered care for this patient independently, reviewed the findings and plan as documented in the note above. I did not physically speak with or examine the patient on this date. Objective - Vital Signs Vital signs: Vital Signs Temp 96.1 F L 08/28/22 07:41 Pulse 53 L 08/28/22 07:41 Resp 15 08/28/22 07:41 BP 160/76 08/28/22 07:41 Pulse Ox 98 08/28/22 07:41 FiO2 Intake & Output 08/27/22 08/28/22 08/28/22 18:59 06:59 18:59 Output Total 1020 1 Balance -1020 -1 Weight 79.5 kg Output: Urine 1020 Stool 1 Other: Voiding Method Incontinent Incontinent External Catheter External Catheter # Voids 3 # Bowel Movements 2 - Labs CBC & Chem 7: 08/28/22 04:36 08/28/22 04:36
[2022-08-28] MEDS: DONEPEZIL 10 MG TAB PO SCH (21:44)
[2022-08-29 06:17] VITALS: TEMP 98.2
[2022-08-29] MEDS: MEMANTINE 10 MG TAB PO SCH (08:03)
[2022-08-29] MEDS: risperiDONE 0.5 MG TAB PO SCH (08:03)
[2022-08-29] MEDS: ENOXAPARIN 40 MG/0.4 ML SYRINGE SQ SCH (08:03)
[2022-08-29] MEDS: THIAMINE 100 MG TAB PO SCH (08:03)
[2022-08-29] MEDS: levETIRAcetam IV 500 MG in SODIUM CHLORIDE 0.9% 100 ML IVPB SCH (08:05)
--- NOTE | 2022-08-29 08:59 | P.PN ---
Progress Note - Text Progress Note Date: 08/29/22 Spoke with the patient's son, Arthur, via telephone today. He states that he has spoken with a liaison from [facility]. He spoke to them for quite a while and also visited their website. He feels that this may be the best option for his father. He is in the process of gathering information to give to [facility] so they can complete a financial assessment. He states that he will speak to his brother, Jeison, and set up an informational meeting with [facility] soon. He was given my contact information, and told to call with any questions or if I could be of any further assistance. We will continue to follow up with this patient and his family. Talia López [facility] Palliative Care/Urology [place] [id number] Email: [email or web address]
[2022-08-29] MEDS: ALBUTEROL HFA INHALER INHALATION SCH ×3 (09:33→16:47)
[2022-08-29 10:01] VITALS: BMI 24.5
[2022-08-29 15:08] VITALS: BP 157/83; PULSE 71; RESP 14
--- NOTE | 2022-08-29 16:41 | P.DS ---
Providers Date of admission: 08/22/22 17:37 Expected date of discharge: 08/29/22 Attending physician: Stefanie Veras MD Consults: 08/22/22 17:37 Consult Physician Routine Consulting Provider: Rosas Connell Consult Reason/Comments: ams, covid Do you want consulting provider notified?: Yes 08/24/22 07:51 Consult to Palliative Care Routine Consulting Provider: Talia López Consult Reason/Comments: GOC Do you want consulting provider notified?: Yes Primary care physician: Toni Montanez MD Hospital Course: Discharge Diagnosis: Acute metabolic encephalopathy resulting from advanced severe dementia and current COVID-19 infection. Family made the decision to make their father comfort measures only under hospice care. [facility] secondary to advanced dementia and Covid infection under [facility] services. Discharge medications to be ordered by [facility]. Failure to thrive Acute hypoxic respiratory failure COVID-19 infection Elevated BUN, prerenal azotemia Ketonuria Transaminitis History of severe dementia History of chronic alcohol abuse History of CVA Hypertension Hospital Course: Patient is a very pleasant 76-year-old male with past medical history of severe dementia, history of CVA, hypertension, and chronic alcohol abuse. He presented to the emergency department on 08/22/22 for concerns of worsening mental status and failure to thrive. Patient was brought in by his son and was unable to provide any history secondary to mentation therefore majority of information is obtained from the son and EMR. The son reported the patient was diagnosed with dementia 5 years ago and that he had a history of heavy alcohol abuse for 16 years but quit 5 years ago when he was no longer able to obtain alcohol due to his dementia the patient's son reported that since this time the patient's mentation has been progressively worsening. It is reported they became very concerned over the past few weeks as patient has had even further deterioration resulting in repeated falls, very poor appetite, and finally total loss of appetite with reported last time eating being on Saturday08/19/22. Family reports that patient had not been able to carry on a conversation in over 3-4 months and is alert to himself only. The patient currently lives with his son and due to the rapid deterioration of his condition, no one is available to provide 24-hour supervision in the home and he was brought into the emergency d epartment for evaluation and possible placement. Upon arrival to the emergency department patient underwent full evaluation. CBC showed leukocytosis with WBC count of 11 and thrombocytopenia with platelet count 123. Coagulation panel was within normal limits. CMP showed BUN of 22, total bilirubin 1.4, AST of 89, alkaline phosphatase of 162. Troponin was less than 0.012. Urinalysis showed trace protein and 2+ ketones. Influenza and RSV was negative. COVID-[address] head and C-spine showed age-related atrophic and chronic small vessel ischemic changes but was negative for acute process. Chest x-ray negative. Patient was admitted under our services for failure to thrive and placement. He was evaluated by neurology and a repeat EEG was completed revealing severe encephalopathy. Ammonia levels were negative at less than 9. MRI brain done completed again negative for acute intercranial process. Per recommendations of neurology, patient was started on Keppra empirically and neurology recommending outpatient lumbar puncture for evaluation of possible NPH. On 08/25/22 patient having increased oxygenation needs and was started on Rocephin/azithromycin and Decadron. Palliative care was consulted for evaluation and further discussion with family regarding palliative care and/or hospice. Patient's family met with palliative care and hospice services. Family made the decision to make their father comfort measures only under hospice care. Patient being discharged to [facility] secondary to advanced severe dementia and COVID-19 infection under [facility] services. Physical exam: General: Ill-appearing, no distress, appears at stated age Derm: warm, dry Head: atraumatic, normocephalic, symmetric Eyes: EOMI, no lid lag, anicteric sclera Mouth: no lip lesion, mucus membranes moist Cardiovascular: Normal S1 S2, no murmur Lungs: Decreased breath sounds bilateral, no rhonchi, no rales , no accessory muscle use Abdominal: soft, nontender to palpation, no guarding, no appreciable organomegaly Ext: no gross muscle atrophy, no edema, resting tremors Neuro: Alert to self only. Garbled speech with occasional comprehensible words unable to follow commands. Psych: Patient does not communicate and does not respond to verbal stimuli but does respond to painful/tactile stimuli and was able to state name today. A total of 33 minutes of time were spent preparing this complex discharge summary. Pt was discharged on 08/29/22 at 4:32 PM Yonas Demetrio, [employer] rendered care for this patient independently, reviewed the findings and plan as documented in the note above. I did not physically speak with or examine the patient on this date. Plan - Discharge Summary Discharge Rx Participant: No New Discharge Prescriptions: No Action Memantine [Namenda] 10 mg PO DAILY traZODone HCL [Desyrel] 50 mg PO HS risperiDONE [RisperDAL] 0.5 mg PO DAILY QUEtiapine [SEROquel] 25 mg PO HS Discharge Medication List Memantine [Namenda] 10 mg PO DAILY 10/16/21 [History] risperiDONE [RisperDAL] 0.5 mg PO DAILY 10/16/21 [History] QUEtiapine [SEROquel] 25 mg PO HS 08/23/22 [History] traZODone HCL [Desyrel] 50 mg PO HS 08/23/22 [History] Follow up Appointment(s)/Referral(s): Hospice,[facility] [REFERRING] - As Needed (Patient being discharged to [facility] [place] under care of [facility]) Activity/Diet/Wound Care/Special Instructions: Activity: As tolerated. Bed rest. Diet: Comfort feeds. Special Instructions: Patient being discharged to [facility] [place] under [facility] services. Thank you for allowing us to participate in your care, it was truly a pleasure having you for our patient!!! Discharge Disposition: DISCH TO [facility]
== END 2022-08-29 20:00 | disposition hospice, inpatient (51) | DRG 177 ==
LOC: EC 14:30 → 3SCARD 17:37 → 4SSUR 18:47
PROVIDERS: ADMIT Family Medicine; ATTEND Family Medicine
DX: U07.1 COVID-19 (principal); G93.41 Metabolic encephalopathy; J96.01 Acute respiratory failure with hypoxia; F03.C4 Unspecified dementia, severe, with anxiety; G91.2 (Idiopathic) normal pressure hydrocephalus; R62.7 Adult failure to thrive; D69.6 Thrombocytopenia, unspecified; R56.9 Unspecified convulsions; D72.829 Elevated white blood cell count, unspecified; F10.97 Alcohol use, unspecified with alcohol-induced persisting dementia; Z66 Do not resuscitate; R32 Unspecified urinary incontinence; R29.6 Repeated falls; R13.10 Dysphagia, unspecified; F41.9 Anxiety disorder, unspecified; E86.0 Dehydration; R82.4 Acetonuria; R74.01 Elevation of levels of liver transaminase levels; I10 Essential (primary) hypertension; Z68.24 Body mass index [BMI] 24.0-24.9, adult; I45.10 Unspecified right bundle-branch block; Z51.5 Encounter for palliative care; Z86.16 Personal history of COVID-19; Z86.73 Personal history of transient ischemic attack (TIA), and cerebral infarction without residual deficits; Z85.828 Personal history of other malignant neoplasm of skin; Z79.899 Other long term (current) drug therapy; Z79.82 Long term (current) use of aspirin; Z88.8 Allergy status to other drugs, medicaments and biological substances
CPT/HCPCS: 36415; 70450; 70553; 71046; 72125; 80053; 81003; 82140; 82728; 83605; 83615; 83735; 84484; 85025; 85027; 85379; 85610; 85730; 87636; 93005; 94640; 94760; 95816; 96360; 96361; 99285